=== PATIENT | male | born 1980 | race African-American/Black ===

== ENCOUNTER 2017-08-30 16:28 | Emergency (ER) | payer MEDICAID ==
[~2017-08-30] VITALS: Ht 185.4 cm; Wt 124.7 kg
[2017-08-30] MEDS ORDERED: TETANUS-DIPTH-ACEL PERTUSSIS 0.5ML SYRG IM ONE (22:00)
[2017-08-30] MEDS ORDERED: LIDOCAINE 1% HCL (LOCAL ANESTH.) INJ 20ML MDV IJ ONE (22:00)
[2017-08-30 22:02] VITALS: BP 182/115
[2017-08-30] MEDS ORDERED: cloNIDine HCL 0.1 MG TAB PO ONE (22:15)
== END 2017-08-30 22:33 | disposition home or self-care (01) ==
LOC: ER 16:37
DX: S61.411A Laceration without foreign body of right hand, initial encounter (principal); I10 Essential (primary) hypertension; X58.XXXA Exposure to other specified factors, initial encounter; Y93.89 Activity, other specified; Y99.8 Other external cause status; Y92.89 Other specified places as the place of occurrence of the external cause
CPT/HCPCS: 12002; 90471; 90715; 99283; J2001

== ENCOUNTER 2020-05-15 19:03 | Inpatient (IN) | payer MEDICAID, OTHER ==
[~2020-05-15] VITALS: Ht 182.9 cm; Wt 138.1 kg
[2020-05-15] MEDS ORDERED: AZITHROMYCIN 500MG/ 250ML 250 ML IV ONE (20:30)
[2020-05-15] MEDS ORDERED: methylPREDNISolone SOD SUCC 125 MG/2 ML VL IV ONE (20:30)
[2020-05-15] MEDS ORDERED: ACETAMINOPHEN 325 MG TAB PO ONE (20:30)
[2020-05-15 21:12] LABS: Basophils # (auto) 0.1 10 ^3/uL (0-0.2); Basophils % (auto) 1.3 % (0.0-2.0); Eosinophils # (auto) 0 10 ^3/uL (0-0.8); Eosinophils % (auto) 0.6 % (0.0-7.0); Hematocrit 44.2 % (41.0-53.0); Hemoglobin 14.4 g/dL (13.5-17.5); Lymphocytes # (auto) 0.7 10 ^3/uL (0.4-5.4); Lymphocytes % (auto) 11.5 % (10.0-50.0); Mean Corpuscular Hemoglobin 27.6 pg (28.0-32.0); Mean Corpuscular Hgb Conc. 32.6 g/dL (32.0-36.0); Mean Corpuscular Volume 84.4 fL (80.0-100.0); Monocytes % (auto) 15.9 % (0.0-12.0); Neutrophils # (auto) 4.3 10 ^3/uL (1.6-8.6); Neutrophils % (auto) 70.7 % (37.0-80.0); Nucleated Red Blood Cells % 0.2 %; Platelet Count (auto) 245 10^3/uL (140-450); Red Blood Cells 5.23 10^6/uL (4.5-5.90); Red Cell Distribution Width 15.1 % (11.8-14.3)
[2020-05-15 21:32] LABS: Albumin 3.6 g/dL (3.4-5.0); BUN/Creatinine Ratio 13.9; Calcium 8.5 mg/dL (8.5-10.1); Magnesium 2.2 mg/dL (1.6-2.6); Potassium 3.5 mmol/L (3.5-5.1)
[2020-05-15 21:37] LABS: Bilirubin, Total 0.3 mg/dL (0.2-1.0); Total Protein 7.3 g/dL (6.4-8.2)
[2020-05-15] MEDS ORDERED: IBUPROFEN 400 MG TAB PO ONE (22:45)
[2020-05-15 23:40] LABS: Alcohol, Urine < 3.0 mg/dL (0-10); Amphetamine Screen, Urine NEGATIVE (NEGATIVE); Barbiturate Scree,Urine NEGATIVE (NEGATIVE); Benzodiazephine Screen, Urine NEGATIVE (NEGATIVE); Cannabinoid Screen, Urine NEGATIVE (NEGATIVE); Cocaine Screen, Urine NEGATIVE (NEGATIVE); Opiate Scree,Urine NEGATIVE (NEGATIVE); Phencyclidine Screen, Urine NEGATIVE (NEGATIVE)
[2020-05-16] MEDS ORDERED: METF-370 PO (00:04)
[2020-05-16] MEDS ORDERED: ATOR40TA52 PO (00:04)
[2020-05-16] MEDS ORDERED: ACETAMINOPHEN 500 MG TAB PO PRN (00:15)
[2020-05-16] MEDS ORDERED: NITROGLYCERIN 0.4 MG SL TAB SL PRN (00:15)
[2020-05-16] MEDS ORDERED: DOCUSATE SOD 100 MG CAP PO PRN (00:15)
[2020-05-16] MEDS ORDERED: MORPHINE SULF INJ 2 MG/ML SYRINGE 1ML IV PRN (00:15)
[2020-05-16 02:10] LABS: Cholesterol 201 mg/dL (< 200)
[2020-05-16 02:13] LABS: HDL Cholesterol 33 mg/dL (40-59); LDL Cholesterol 109 mg/dL (< 100); Lactate Dehydrogenase 246 U/L (87-241); Triglycerides 388 mg/dL (< 150)
--- NOTE | 2020-05-16 06:05 | NUR ---
Telemetry admit from ER RONALDO FABIAN admitted to Telemetry unit after SBAR received. Patient oriented to MYNOR RIGGS RN primary RN, MST unit, room 245, bed B, and unit policies regarding patient care and visiting hours. Patient now on continuous telemetry monitoring, tele box 3 and telemetry reading on arrival to unit is sinus rhythm in the 70s. Patient placed on bedside oxygen, weighed by bed scale and encouraged to call if they need something. All questions and concerns addressed, patient verbalized understanding. Note: Patient able to ambulate independently, bed in lowest locked position, side rails up x2, and call light within reach. Will monitor Q1HR PRN.
[2020-05-16] MEDS ORDERED: ASPI81CH59 PO (06:18)
[2020-05-16] MEDS ORDERED: LISI-648 PO (06:18)
[2020-05-16] MEDS: BUDESONIDE (INHALATION) 180 MCG IH IN SCH ×3 (06:51→22:03)
[2020-05-16] MEDS: ALBUTEROL SULF HFA 90MCG INH 200DOSE IN SCH ×4 (06:51→22:03)
--- NOTE | 2020-05-16 06:51 | NUR ---
RT NOTE: MEDICATION UNAVAILABLE AT THIS TIME, PT IS IN NO DISTRESS. HR 65, SPO2 94% ON RA, RR 16. WILL CONTINUE TO MONITOR PT.
[2020-05-16] MEDS: HYDROmorphone HCL 2 MG/ML VL IV PRN ×3 (08:54→16:10)
[2020-05-16 09:00] VITALS: BP 156/86
[2020-05-16] MEDS: ASPirin 81 mg TAB PO SCH (10:12)
[2020-05-16] MEDS: ZINC SULFATE 220mg CAP or TAB PO SCH (10:13)
[2020-05-16] MEDS: ASCORBIC ACID 1,000 MG TAB PO SCH (10:13)
[2020-05-16] MEDS: CHOLECALCIFEROL (VITD3) 2,000 UNIT CAP PO SCH (10:14)
[2020-05-16] MEDS: ENOXAPARIN SOD 40 MG/0.4 ML SYRINGE SC SCH (10:14)
[2020-05-16 11:35] LABS: Basophils # (auto) 0.1 10 ^3/uL (0-0.2); Basophils % (auto) 1.2 % (0.0-2.0); Eosinophils # (auto) 0 10 ^3/uL (0-0.8); Hematocrit 45.5 % (41.0-53.0); Hemoglobin 14.6 g/dL (13.5-17.5); Mean Corpuscular Hemoglobin 27.3 pg (28.0-32.0); Mean Corpuscular Hgb Conc. 32.2 g/dL (32.0-36.0); Mean Corpuscular Volume 84.8 fL (80.0-100.0); Monocytes # (auto) 0.2 10 ^3/uL (0-1.3); Monocytes % (auto) 3.9 % (0.0-12.0); Neutrophils # (auto) 4.6 10 ^3/uL (1.6-8.6); Neutrophils % (auto) 77.9 % (37.0-80.0); Nucleated Red Blood Cells % 0.2 %; Platelet Count (auto) 241 10^3/uL (140-450); Red Blood Cells 5.36 10^6/uL (4.5-5.90); Red Cell Distribution Width 15.4 % (11.8-14.3); White Blood Cell 5.9 10^3/uL (4.4-10.8)
[2020-05-16 11:53] LABS: Potassium 4.1 mmol/L (3.5-5.1)
[2020-05-16 11:56] LABS: BUN/Creatinine Ratio 15.2
[2020-05-16 13:00] VITALS: BP 149/87
[2020-05-16] MEDS: DexAMETHasone SOD PHOS 10MG/1ML VIAL INJ IV SCH (16:27)
[2020-05-16] MEDS: DOXYCYCLINE 100MG/250ML 250 ML IV SCH ×2 (16:28→23:17)
[2020-05-16] MEDS ORDERED: LISINOPRIL 10 MG TAB PO ONE (16:45)
[2020-05-16 17:00] VITALS: BP 172/97
--- NOTE | 2020-05-16 19:30 | NUR ---
Opening Shift Note Assumed care of patient, awake and alert x4. Patient has no IV access at this time. Patient refusing IV insertion at this time, patient educated on the importance of IV access, patient continues to refuse IV insertion at this time, will attempt at a later time. Patient denies pain or shortness of breath at this time. No sign/symptoms of distress noted or verbalized at this time. Instructed on plan of care and encouraged patient to call for assistance as needed, patient verbalized understanding. Bed is locked in lowest position, side rails x 2 are up, and call light is within reach.
[2020-05-16 22:00] VITALS: BP 163/98
[2020-05-16] MEDS ORDERED: ATORVASTATIN 20 MG TAB PO SCH ×2 (22:00)
--- NOTE | 2020-05-16 22:30 | NUR ---
IV Insertion IV access obtained, via clean sterile technique by inserting 22 gauge catheter at left hand after 1 attempt. IV secured properly. No trauma to site. Patient tolerated well.
[2020-05-17] MEDS ORDERED: ACETAMINOPHEN 325 MG TAB PO PRN (00:15)
[2020-05-17] MEDS: hydrALAZINE HCL 25 MG TAB PO SCH ×2 (00:33→06:10)
[2020-05-17 02:00] VITALS: BP 159/88
[2020-05-17 04:55] VITALS: BP 158/95
[2020-05-17] MEDS: ALBUTEROL SULF HFA 90MCG INH 200DOSE IN SCH (06:45)
[2020-05-17] MEDS: BUDESONIDE (INHALATION) 180 MCG IH IN SCH (06:45)
[2020-05-17 08:00] VITALS: BP 132/90
[2020-05-17] MEDS ORDERED: metFORMIN HYDROCHLORIDE 500 MG TAB PO SCH (08:00)
[2020-05-17 08:55] LABS: Basophils # (auto) 0.1 10 ^3/uL (0-0.2); Basophils % (auto) 0.6 % (0.0-2.0); Eosinophils # (auto) 0 10 ^3/uL (0-0.8); Eosinophils % (auto) 0.3 % (0.0-7.0); Hematocrit 42.8 % (41.0-53.0); Hemoglobin 14.2 g/dL (13.5-17.5); Lymphocytes # (auto) 2.1 10 ^3/uL (0.4-5.4); Lymphocytes % (auto) 24.1 % (10.0-50.0); Mean Corpuscular Hemoglobin 28.1 pg (28.0-32.0); Mean Corpuscular Hgb Conc. 33.2 g/dL (32.0-36.0); Mean Corpuscular Volume 84.8 fL (80.0-100.0); Monocytes # (auto) 1.2 10 ^3/uL (0-1.3); Monocytes % (auto) 14.6 % (0.0-12.0); Neutrophils # (auto) 5.2 10 ^3/uL (1.6-8.6); Neutrophils % (auto) 60.4 % (37.0-80.0); Platelet Count (auto) 224 10^3/uL (140-450); Red Blood Cells 5.04 10^6/uL (4.5-5.90); White Blood Cell 8.5 10^3/uL (4.4-10.8)
[2020-05-17 09:13] LABS: Potassium 3.9 mmol/L (3.5-5.1)
[2020-05-17 09:23] LABS: Albumin 3.3 g/dL (3.4-5.0); BUN/Creatinine Ratio 16.3; Bilirubin, Total 0.2 mg/dL (0.2-1.0); Total Protein 6.7 g/dL (6.4-8.2)
[2020-05-17] MEDS: ASPirin 81 mg TAB PO SCH (09:51)
[2020-05-17] MEDS: ASCORBIC ACID 1,000 MG TAB PO SCH (09:52)
[2020-05-17] MEDS: CHOLECALCIFEROL (VITD3) 2,000 UNIT CAP PO SCH (09:52)
[2020-05-17] MEDS: ZINC SULFATE 220mg CAP or TAB PO SCH (09:52)
[2020-05-17] MEDS: DexAMETHasone SOD PHOS 10MG/1ML VIAL INJ IV SCH (09:53)
[2020-05-17] MEDS: DOXYCYCLINE 100MG/250ML 250 ML IV SCH ×2 (09:54→10:00)
[2020-05-17] MEDS: ENOXAPARIN SOD 40 MG/0.4 ML SYRINGE SC SCH (09:54)
[2020-05-17] MEDS ORDERED: ASPirin 81 mg TAB PO SCH (10:00)
[2020-05-17] MEDS ORDERED: LISINOPRIL 10 MG TAB PO SCH (10:00)
[2020-05-17 12:00] VITALS: BP 159/89
[2020-05-17] MEDS ORDERED: DOXYCYCLINE 100 MG TAB/CAP PO ONE (12:00)
--- NOTE | 2020-05-17 13:55 | NUR ---
Discharge instructions given as ordered. Encourage to follow up with PMD as instructed. All questions and concerns addressed. Patient verbalized understanding. Medication reconciliation form completed and copy given to patient. IV removed with catheter intact, pressure dressing applied. Telemetry unit returned to ICU. Patient taken to vehicle via wheelchair with all personal belongings, accompanied by staff. Family member waiting in front lobby for transportation. No distress noted at time of departure.
== END 2020-05-17 13:45 | disposition home or self-care (01) | DRG 137 ==
LOC: ER 19:03 → EDBD 19:03 → TELE 19:04 → TELE-EAST 05-16 06:18
PROVIDERS: ADMIT Nurse Practitioner Family; ATTEND Internal Medicine Pulmonary Disease
DX: U07.1 COVID-19 (principal); J12.89 Other viral pneumonia; E66.01 Morbid (severe) obesity due to excess calories; Z68.41 Body mass index [BMI] 40.0-44.9, adult; I10 Essential (primary) hypertension; R73.03 Prediabetes; R07.89 Other chest pain; E78.5 Hyperlipidemia, unspecified; F12.90 Cannabis use, unspecified, uncomplicated; F32.9 Major depressive disorder, single episode, unspecified; I25.2 Old myocardial infarction; Z79.899 Other long term (current) drug therapy; Z80.9 Family history of malignant neoplasm, unspecified; Z83.3 Family history of diabetes mellitus; Z86.79 Personal history of other diseases of the circulatory system; Z87.891 Personal history of nicotine dependence; Z79.891 Long term (current) use of opiate analgesic; Z79.01 Long term (current) use of anticoagulants; Z79.84 Long term (current) use of oral hypoglycemic drugs
CPT/HCPCS: 36415; 71045; 80048; 80053; 80061; 80307; 82728; 83036; 83605; 83615; 83735; 83880; 84443; 84484; 85025; 85379; 86141; 87040; 87426; 94640; G0378; J1100; J3490

== ENCOUNTER 2023-05-03 16:04 | Inpatient (IN) | payer OTHER ==
[2023-05-03] VITALS (8 sets, daily range): BP systolic 153–179; BP diastolic 81–94; PULSE 63–77; RESP 18–21; TEMP 98.1; O2SAT 95–100
[~2023-05-03] VITALS: Ht 188 cm; Wt 136.0 kg
[~2023-05-03 16:04] MED LIST: ASPI81CH59 PO; ATOR40TA52 PO; LISI10TA34 PO; METF-370 PO
[2023-05-03 16:35] LABS: Basophils # (auto) 0.1 10 ^3/uL (0-0.2); Basophils % (auto) 1.1 % (0.0-2.0); Eosinophils # (auto) 0.1 10 ^3/uL (0-0.8); Eosinophils % (auto) 1.3 % (0.0-7.0); Hematocrit 42.1 % (41.0-53.0); Hemoglobin 13.8 g/dL (13.5-17.5); Lymphocytes # (auto) 1.8 10 ^3/uL (0.4-5.4); Lymphocytes % (auto) 27.4 % (10.0-50.0); Mean Corpuscular Hemoglobin 27.5 pg (28.0-32.0); Mean Corpuscular Hgb Conc. 32.9 g/dL (32.0-36.0); Mean Corpuscular Volume 83.8 fL (80.0-100.0); Monocytes # (auto) 0.6 10 ^3/uL (0-1.3); Monocytes % (auto) 9.3 % (0.0-12.0); Neutrophils % (auto) 60.9 % (37.0-80.0); Red Blood Cells 5.02 10^6/uL (4.5-5.90); Red Cell Distribution Width 15.5 % (11.8-14.3); White Blood Cell 6.6 10^3/uL (4.4-10.8)
[2023-05-03 16:51] LABS: INR 1.02 (0.9-1.15); Prothrombin Time 10.7 sec (9.3-11.8)
[2023-05-03 16:56] LABS: Alanine Aminotransferase 27 U/L (7-40); Albumin 4.2 g/dL (3.2-4.8); Alkaline Phosphatase 115 U/L (46-116); Anion Gap 6 (5-15); Aspartate Aminotransferase 9 U/L (13-40); BUN/Creatinine Ratio 9.4 (10.0-20.0); Blood Urea Nitrogen 8 mg/dL (9-23); Calcium 8.9 mg/dL (8.7-10.4); Carbon Dioxide 26 mmol/L (20-30); Chloride 108 mmol/L (98-107); Glucose 137 mg/dL (74-106); Lipase 61 U/L (12-53); Potassium 3.7 mmol/L (3.5-5.1); Sodium 140 mmol/L (136-145)
[2023-05-03 16:57] LABS: Bilirubin, Total 0.6 mg/dL (0.2-1.0); Total Protein 6.7 g/dL (5.7-8.2)
[2023-05-03] MEDS ORDERED: NITROGLYCERIN 2% OINT 1GM PKG TD ONE (17:45)
[2023-05-03] MEDS ORDERED: HEPARIN DRIP/D5W 100UNITS/ML 250 ML IV SCH (17:45)
[2023-05-03] MEDS ORDERED: HEPARIN SODIUM (PORCINE) 5000 UNITS/ML 1ML VIAL IV ONE (17:45)
[2023-05-03] MEDS ORDERED: MORPHINE SULFATE INJ 2 MG/ml SYRG IV PRN ×2 (19:30)
[2023-05-03] MEDS ORDERED: HYDROcodone-ACET 5/325MG TAB PO PRN (19:30)
[2023-05-03] MEDS ORDERED: ACETAMINOPHEN 325 MG TAB PO PRN (19:30)
[2023-05-03] MEDS ORDERED: ONDANSETRON HCL 4 MG/2 ML VIAL IV PRN (19:30)
[2023-05-03] MEDS ORDERED: NITROGLYCERIN 0.4 MG SL TAB SL PRN (19:30)
[2023-05-03] MEDS ORDERED: DEXTROSE (50%) 50ML SYRG IV PRN (19:30)
[2023-05-03] MEDS ORDERED: DOCUSATE SOD 100 MG CAP PO PRN (19:30)
[2023-05-03] MEDS ORDERED: TICA90TA PO (19:39)
[2023-05-03] MEDS ORDERED: AMLO1TAB23 PO (19:39)
[2023-05-03] MEDS: hydrALAZINE HCL 20 MG/ML VL IV PRN (19:52)
[2023-05-03] MEDS ORDERED: ALBUTEROL SULF 2.5 MG/0.5ML(0.5%) NEB SOLN NEB PRN (20:00)
[2023-05-03] MEDS ORDERED: IPRATROPIUM BROM 0.5 MG/2.5ML INH SOL NEB PRN (20:00)
[2023-05-03] MEDS ORDERED: cloNIDine HCL 0.1 MG TAB PO ONE (21:30)
[2023-05-03] MEDS ORDERED: ATORVASTATIN 20 MG TAB PO SCH (22:00)
[2023-05-03 22:26] LABS: COVID19 ANTIGEN SOFIA FIA NEGATIVE (NEGATIVE)
[2023-05-03] MEDS: InsuLIN REG 1unit/0.01ml Soln (100units/ml) SC SCH (22:33)
[2023-05-03] MEDS: ACCU-CHEK COMFORT CURVE STRIP VI SCH (22:34)
[2023-05-04] VITALS: BP 188/72; PULSE 54; PULSE 55; RESP 13; TEMP 98.1; O2SAT 97
[2023-05-04] MEDS ORDERED: HEPARIN SODIUM (PORCINE) 5000 UNITS/ML 1ML VIAL IV NR (00:15)
[2023-05-04 04:00] VITALS: BP 165/93; PULSE 52; PULSE 62; RESP 19; TEMP 97.8; O2SAT 96
[2023-05-04 05:06] LABS: Basophils # (auto) 0.2 10 ^3/uL (0-0.2); Basophils % (auto) 2.1 % (0.0-2.0); Eosinophils # (auto) 0.2 10 ^3/uL (0-0.8); Eosinophils % (auto) 2.1 % (0.0-7.0); Hematocrit 42.5 % (41.0-53.0); Hemoglobin 13.9 g/dL (13.5-17.5); Lymphocytes # (auto) 2.7 10 ^3/uL (0.4-5.4); Lymphocytes % (auto) 35.9 % (10.0-50.0); Mean Corpuscular Hemoglobin 27.5 pg (28.0-32.0); Mean Corpuscular Hgb Conc. 32.6 g/dL (32.0-36.0); Mean Corpuscular Volume 84.3 fL (80.0-100.0); Monocytes % (auto) 12.6 % (0.0-12.0); Neutrophils # (auto) 3.6 10 ^3/uL (1.6-8.6); Neutrophils % (auto) 47.3 % (37.0-80.0); Nucleated Red Blood Cells % 0.2 %; Red Blood Cells 5.04 10^6/uL (4.5-5.90); Red Cell Distribution Width 16.1 % (11.8-14.3); White Blood Cell 7.6 10^3/uL (4.4-10.8)
[2023-05-04 05:20] LABS: INR 1.04 (0.9-1.15); Partial Thromboplastin Time 42.6 SEC (24.5-34.5); Prothrombin Time 10.9 sec (9.3-11.8)
[2023-05-04 05:23] LABS: Alanine Aminotransferase 37 U/L (7-40); Albumin 4.1 g/dL (3.2-4.8); Alkaline Phosphatase 102 U/L (46-116); Anion Gap 6 (5-15); Aspartate Aminotransferase 9 U/L (13-40); Bilirubin, Total 0.8 mg/dL (0.2-1.0); Blood Urea Nitrogen 8 mg/dL (9-23); Calcium 8.5 mg/dL (8.5-10.1); Carbon Dioxide 26 mmol/L (20-30); Chloride 110 mmol/L (98-107); Glucose 109 mg/dL (74-106); Potassium 3.6 mmol/L (3.5-5.1); Sodium 142 mmol/L (136-145)
[2023-05-04 05:24] LABS: Total Protein 6.5 g/dL (5.7-8.2)
[2023-05-04] MEDS: InsuLIN REG 1unit/0.01ml Soln (100units/ml) SC SCH ×2 (06:19→11:30)
[2023-05-04] MEDS: ACCU-CHEK COMFORT CURVE STRIP VI SCH ×2 (06:19→11:30)
[2023-05-04 07:24] LABS: INR 1.03 (0.9-1.15); Partial Thromboplastin Time 38.4 SEC (24.5-34.5); Prothrombin Time 10.8 sec (9.3-11.8)
[2023-05-04 08:00] VITALS: BP 164/86; PULSE 49; PULSE 61; RESP 16; RESP 18; TEMP 98.3; O2SAT 96; O2SAT 97
[2023-05-04] MEDS ORDERED: HEPARIN DRIP/D5W 100UNITS/ML 250 ML IV SCH ×2 (08:45→16:15)
[2023-05-04] MEDS ORDERED: NICOTINE 14 MG/24HR TOPICAL PATCH TD SCH (10:00)
[2023-05-04] MEDS ORDERED: TICAGRELOR 90 MG TAB PO SCH (10:00)
[2023-05-04] MEDS ORDERED: PANTOPRAZOLE 40 MG TAB PO SCH (10:00)
[2023-05-04] MEDS ORDERED: LISINOPRIL 10 MG TAB PO SCH (10:00)
[2023-05-04] MEDS: hydrALAZINE HCL 20 MG/ML VL IV PRN (10:00)
[2023-05-04] MEDS ORDERED: ASPirin 81 mg TAB PO SCH (10:00)
[2023-05-04] MEDS ORDERED: amLODIPine BESYLATE 5 MG TAB PO SCH (10:00)
[2023-05-04 10:12] VITALS: O2SAT 94
[2023-05-04 12:00] VITALS: BP 169/90; PULSE 61; PULSE 64; RESP 15; TEMP 98.2; O2SAT 95
[2023-05-04 15:46] LABS: INR 1.03 (0.9-1.15); Partial Thromboplastin Time 41.3 SEC (24.5-34.5); Prothrombin Time 10.8 sec (9.3-11.8)
== END 2023-05-04 16:54 | disposition left against medical advice (07) | DRG 190 ==
LOC: EDBD 16:04 → ER 16:04 → TELE 19:39 → DOU IN ICU 21:50
PROVIDERS: ADMIT Nurse Practitioner Family; ATTEND Nurse Practitioner Acute Care
DX: I21.4 Non-ST elevation (NSTEMI) myocardial infarction (principal); E11.9 Type 2 diabetes mellitus without complications; E66.01 Morbid (severe) obesity due to excess calories; E78.5 Hyperlipidemia, unspecified; F17.210 Nicotine dependence, cigarettes, uncomplicated; I10 Essential (primary) hypertension; Z53.29 Procedure and treatment not carried out because of patient's decision for other reasons; I25.10 Atherosclerotic heart disease of native coronary artery without angina pectoris; Z20.822 Contact with and (suspected) exposure to COVID-19; Z79.82 Long term (current) use of aspirin; Z79.84 Long term (current) use of oral hypoglycemic drugs; Z95.5 Presence of coronary angioplasty implant and graft; Z83.3 Family history of diabetes mellitus; Z80.9 Family history of malignant neoplasm, unspecified; Z68.38 Body mass index [BMI] 38.0-38.9, adult
CPT/HCPCS: 36415; 71045; 80053; 82962; 83690; 83735; 83880; 84484; 85025; 85379; 85610; 85730; 87081; 87426; 93005; 93306; 94640; 99291; G0378

== ENCOUNTER 2024-08-28 10:51 | Emergency (ER) | payer MEDICAID, OTHER ==
[~2024-08-28] VITALS: Ht 185.4 cm; Wt 132.0 kg
[~2024-08-28 10:51] MED LIST changes: +AMLO1TAB23 PO; +TICA90TA PO
[2024-08-28 11:09] VITALS: BP 180/103; PULSE 81; RESP 17; O2SAT 99
[2024-08-28 12:23] LABS: Urine Bacteria None Seen /hpf (None Seen)
--- NOTE | 2024-08-28 12:29 | ED.PDOC ---
GI ASSESSMENT HPI Comments Manny Sloan is a 43-year-old male patient who presents to the ED with chief complaint of back pain which radiated towards abdomen in umbilicus area which started two weeks ago, associated with nausea, chills, fever and diarrhea (initially patient could not control during nighttime bowel movements, currently patient is having 12 bowel movements and last bowel movements were black/tarry) and stabbing anal pain while wiping. Per patient symptoms partially improved with Tylenol, but persisted until yesterday when he also saw hematuria and melena. When discussing different food intake, patient does recall consuming home made chicken noodle soup for his that had flu-like symptoms, and then started presenting symptoms (no other family members had symptoms from eating soup). 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 Denies chest pain, dyspnea, dysuria, vomiting, constipation and motor or sensory deficits. 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 Current smoker (approximately 11 pack-year history of smoking). Denies alcohol and other drug abuse Allergies: Denies Home medication: Metformin, aspirin, Brilinta, clonidine, Ozempic which he has not been able be compliant with due to abdominal pain. Chief Complaint: Abdominal Pain Time Seen by MD: 11:18 Primary Care Provider: sanchez Allergies: Coded Allergies: No Known Drug Allergy (Verified Allergy, Unknown, 08/30/17) Home Meds Reported Medications Ticagrelor Base (BRILINTA) 90 Mg Tab, 1 TAB PO BID 05/03/23 Amlodipine Besylate (Amlodipine Besylate) 10 Mg Tab, 1 TAB PO DAILY 05/03/23 Lisinopril (Lisinopril) 10 Mg Tab, 10 MG PO DAILY for 30 Days, MG 05/16/20 Aspirin (Aspirin Low Dose) 81 Mg Chw, 1 TAB PO DAILY, #30 TAB 3 Refills 05/16/20 Metformin Hydrochloride (Metformin Hcl) 500 Mg Tab, 1 TAB PO BID 05/16/20 Atorvastatin Calcium (ATORVASTATIN CALCIUM) 40 Mg Tab, 1 TAB PO 05/16/20 Mode of Arrival: Ambulatory Past Medical History PAST MEDICAL HISTORY: DM, High Lipids, HTN, OK Surgical History: PTCA Family History Family History: Family hx of DM, Family hx of Cancer Social History Smoker: Cigarettes Alcohol: Occasionally Drugs: Marijuana Lives In: Home Physical Exam General Appearance: Mild Distress, Normal HEENT: Normal ENT Inspection, Pharynx Normal, TMs Normal Neck: Full Range of Motion, Non-Tender, Normal, Normal Inspection Respiratory: Chest Non-Tender, Lungs Clear, No Accessory Muscle Use, No Res piratory Distress, Normal Breath Sounds Cardiovascular: No Edema, No JVD, No Murmur, No Gallop, Normal Peripheral Pulses, Regular Rate/Rhythm Breast Exam: Deferred Gastrointestinal: No Organomegaly, Non Tender, No Pulsatile Mass, Normal Bowel Sounds, Soft Genitalia: Other (Costovertebral tenderness in left flank) Pelvic: Deferred Rectal: Deferred Extremities: No calf tenderness, Normal capillary refill, Normal inspection, Normal range of motion, Non-tender, No pedal edema 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 Was a procedure done?: No GI differential Dx Differential Diagnosis: AAA, Appendicitis, Bowel Obstruction, Constipation, Diverticular disease, Gastritis/PUD, Gastroenteritis, Ischemic Bowel, Pancreatitis, UTI, Urolithiasis, Electrolyte Imbalance, Food Poisoning X-Ray, Labs, Meds, VS Vital Signs Date Time Temp Pulse Resp B/P (MAP) Pulse Ox O2 Delivery O2 Flow Rate FiO2 08/28/24 11:09 98.0 81 17 180/103 (128) 99 Lab Test 08/28/24 13:07 08/28/24 11:08 Range/Units White Blood Count 9.5 4.4-10.8 10^3/uL Red Blood Count 5.15 4.5-5.90 10^6/uL Hemoglobin 14.2 13.5-17.5 g/dL Hematocrit 42.7 41.0-53.0 % Mean Corpuscular Volume 82.8 80.0-100.0 fL Mean Corpuscular Hemoglobin 27.6 L 28.0-32.0 pg Mean Corpuscular Hemoglobin Concent 33.3 32.0-36.0 g/dL Red Cell Distribution Width 16.5 H 11.8-14.3 % Platelet Count 324 140-450 10^3/uL Mean Platelet Volume 8.1 6.9-10.8 fL Neutrophils (%) (Auto) 65.5 37.0-80.0 % Lymphocytes (%) (Auto) 22.8 10.0-50.0 % Monocytes (%) (Auto) 9.2 0.0-12.0 % Eosinophils (%) (Auto) 1.3 0.0-7.0 % Basophils (%) (Auto) 1.2 0.0-2.0 % Neutrophils # (Auto) 6.2 1.6-8.6 10 ^3/uL Lymphocytes # (Auto) 2.2 0.4-5.4 10 ^3/uL Monocytes # (Auto) 0.9 0-1.3 10 ^3/uL Eosinophils # (Auto) 0.1 0-0.8 10 ^3/uL Basophils # (Auto) 0.1 0-0.2 10 ^3/uL Nucleated Red Blood Cells 0.1 % Prothrombin Time 10.3 9.3-11.8 sec Prothrombin Time INR 0.97 0.9-1.15 Activated Partial Thromboplast Time 26.9 24.5-34.5 SEC Sodium Level 143 136-145 mmol/L Potassium Level 3.6 3.5-5.1 mmol/L Chloride Level 109 H 98-107 mmol/L Carbon Dioxide Level 26 20-31 mmol/L Anion Gap 8 5-15 Blood Urea Nitrogen 14 9-23 mg/dL Creatinine 1.54 H 0.700-1.30 mg/dL Glomerular Filtration Rate Calc 57 >90 mL/min BUN/Creatinine Ratio 9.1 L 10.0-20.0 Serum Glucose 116 H 74-106 mg/dL Calcium Level 9.9 8.7-10.4 mg/dL Phosphorus Level 3.1 2.4-5.1 mg/dL Magnesium Level 1.9 1.6-2.6 mg/dL Iron Level 46 L 65-175 ug/dL Total Iron Binding Capacity 313 250-425 ug/dL Percent Iron Saturation 14.7 L 20-55 % Total Bilirubin 0.8 0.2-1.0 mg/dL Aspartate Amino Transferase (AST) 9 L 13-40 U/L Alanine Aminotransferase (ALT) 43 H 7-40 U/L Alkaline Phosphatase 97 46-116 U/L Total Protein 7.1 5.7-8.2 g/dL Albumin 4.4 3.2-4.8 g/dL Lipase 39 12-53 U/L Thyroid Stimulating Hormone (TSH) Pending Urine Color Colorless Yellow Urine Clarity Turbid H Clear Urine pH 5.5 5.0-9.0 Urine Specific [place] 1.012 1.001-1.035 Urine Protein Trace H Negative Urine Ketones Negative Negative Urine Blood 3+ H Negative /uL Urine Nitrite Negative Negative Urine Bilirubin Negative Negative Urine Urobilinogen Normal Negative mg/dL Urine Leukocyte Esterase 1+ Negative /uL Urine RBC 1594 0 - 3 /hpf Urine Microscopic WBC 9 H 0-3 /HPF Urine Squamous Epithelial Cells Few <5 /hpf Urine Bacteria None seen None Seen /hpf Urine Glucose Normal Normal mg/dL Urine Opiates Screen Neg NEGATIVE Urine Fentanyl Screen Neg NEGATIVE Urine Barbiturates Screen Neg NEGATIVE Urine Phencyclidine Screen Neg NEGATIVE Urine Amphetamines Screen Neg NEGATIVE Urine Benzodiazepines Screen Neg NEGATIVE Urine Cocaine Screen Neg NEGATIVE Urine Cannabinoids Screen Neg NEGATIVE X-Ray, Labs, Meds, VS Comment Completed laboratory workup, urine analysis, abdomen and pelvis CT. ORDERING PHYSICIAN: NAHUN MARTINEZ RESIDENT PROCEDURE(s): ABPL - CT AB PEL WO CON-NO ORAL OR IV REASON: Abdominal pain, rule our nephrolithiasis ORDER NUMBER(s): [id number], ACCESSION NUMBER(s): [id number] CT ABDOMEN AND PELVIS WITHOUT CONTRAST CLINICAL HISTORY: Abdominal pain, rule our nephrolithiasis TECHNIQUE: Multiple contiguous axial images of the abdomen and pelvis without intravenous contrast. The images were reformatted degenerate coronal and sagittal reconstructions. All CT scans at this medical facility are performed using dose modulation techniques as appropriate to a performed exam including the following:Automated exposure control was utilized; adjustment of the MA and/or KV according to patient size; and use of iterative reconstruction technique. Radiation Dose Information: CT Dose: CTDI volume is 25 mGy. Dose-length product is 1594 mGy*cm Comparison: None FINDINGS: Evaluation of the abdomen and pelvis is limited without intravenous contrast. There is no evidence of nephrolithiasis or hydronephrosis. There is no evidence of a ureteral calculus or hydroureter. The liver, gallbladder, pancreas, adrenal glands, and spleen appear within normal limits. There is no gross evidence of abdominal lymphadenopathy. There is no free fluid or free air. The stomach grossly appears unremarkable. The small and large bowel loops demonstrate normal caliber and appear within normal limits.. A normal-appearing appendix is seen in the right lower quadrant abdomen. The abdominal aorta and IVC appear within normal limits. The bladder appears unremarkable for the degree of distention. Pelvic organ appears within normal limits. There is no gross evidence of a pelvic mass. There is no free fluid collection. There are small clustered calcified granulomas in the right lower lobe. The left lung base is clear. There is no acute osseous abnormality. IMPRESSION: 1. There is no acute process in the abdomen and pelvis. HS:Y ATED BY: MAURICIO CONLEY MD DICTATED DATE/TIME: 08/28/24 1302 Time of 1ST Reevaluation: 14:43 Reevaluation 1ST: Improved Patient Education/Counseling: Diagnosis, Treatment, Prognosis, Need For Follow Up Family Education/Counseling: Diagnosis, Treatment, Prognosis, Need For Follow Up Departure 1 Departure Time of Disposition: 14:44 Impression: Primary Impression: KHUSHBU (acute kidney injury) Additional Impressions: Gastroenteritis Hematuria Disposition: 01 HOME / SELF CARE / HOMELESS Condition: Stable Additional Instructions: Reviewed complementary workup. Laboratory findings show mild KHUSHBU, abdomen and pelvis CT show no gross abdominal pelvis acute findings. Urine analysis shows hematuria with no signs of UTI. Suspect microscopic nephrolithiasis. Indication at this time is p.o. fluids and tamsulosin. If patient does not tolerate p.o. fluids, recommend to revisit ER for IV fluids and eventual workup for stool studies to evaluate cause of diarrhea (C diff, ova and parasites). Patient hemodynamically stable, asymptomatic, in condition to be discharged home. Was granted under optimal medical therapy (p.o. fluids and tamsulosin p.o.), gave her advice on healthy lifestyle habits, and follow-up with PCP and eventual repeat urine analysis and BMP. Critical Care Note Critical Care Time?: No Stability Stability form required: No Heart Score Heart Score: Heart Score Response (Comments) Value History N/A 0 EKG N/A 0 Age N/A 0 Risk Factors N/A 0 Troponin N/A 0 Total 0 NAHUN MARTINEZ RESIDENT Aug 28, 2024 12:29
--- NOTE | 2024-08-28 13:02 | DVH ---
EXAM: XY CHEST XRAY 1 VIEW HISTORY: abdominal pain COMPARISON: XY CHEST XRAY 1 VIEW on DOS: 05/03/23, CHEST PORTABLE on DOS: 05/17/20, CHEST PORTABLE on DOS: 05/15/20 TECHNIQUE: Portable AP view of the chest was performed. FINDINGS: No pneumothorax, consolidative infiltrates, or pulmonary edema. There are calcified granulomas in the right mid lung laterally. The heart is borderline enlarged. IMPRESSION: No acute intrathoracic process.
--- NOTE | 2024-08-28 13:04 | DVH ---
CT ABDOMEN AND PELVIS WITHOUT CONTRAST CLINICAL HISTORY: Abdominal pain, rule our nephrolithiasis TECHNIQUE: Multiple contiguous axial images of the abdomen and pelvis without intravenous contrast. The images were reformatted degenerate coronal and sagittal reconstructions. All CT scans at this medical facility are performed using dose modulation techniques as appropriate t o a performed exam including the following:Automated exposure control was utilized; adjustment of the MA and/or KV according to patient size; and use of iterative reconstruction technique. Radiation Dose Information: CT Dose: CTDI volume is 25 mGy. Dose-length product is 1594 mGy*cm Comparison: None FINDINGS: Evaluation of the abdomen and pelvis is limited without intravenous contrast. There is no evidence of nephrolithiasis or hydronephrosis. There is no evidence of a ureteral calculu s or hydroureter. The liver, gallbladder, pancreas, adrenal glands, and spleen appear within normal limits. There is no gross evidence of abdominal lymphadenopathy. There is no free fluid or free air. The stomach grossly appears unremarkable. The small and large bowel loops demonstrate normal caliber and appear within normal limits.. A normal-appearing appendix is seen in the right lower quadrant a bdomen. The abdominal aorta and IVC appear within normal limits. The bladder appears unremarkable for the degree of distention. Pelvic organ appears within normal dominguez its. There is no gross evidence of a pelvic mass. There is no free fluid collection. There are small clustered calcified granulomas in the right lower lobe. The left lung base is clear. There is no acute osseous abnormality. IMPRESSION: 1. There is no acute process in the abdomen and pelvis. HS:Y
[2024-08-28 13:08] LABS: Urine Blood 3+ /uL (Negative); Urine Clarity Turbid (Clear); Urine Color Colorless (Yellow); Urine Protein, UAD TRACE (Negative); Urine Specific Gravity 1.012 (1.001-1.035); Urine Squamous Epithelial Cell FEW /hpf (<5); Urine Urobilinogen Normal (Negative); Urine WBC 9 /HPF (0-3); Urine pH 5.5 (5.0-9.0)
[2024-08-28 13:26] LABS: Amphetamine Screen, Urine Neg (NEGATIVE); Barbiturate Scree,Urine Neg (NEGATIVE); Benzodiazephine Screen, Urine Neg (NEGATIVE); Cannabinoid Screen, Urine Neg (NEGATIVE); Cocaine Screen, Urine Neg (NEGATIVE); Opiate Scree,Urine Neg (NEGATIVE); Phencyclidine Screen, Urine Neg (NEGATIVE)
[2024-08-28 13:33] LABS: Basophils # (auto) 0.1 10 ^3/uL (0-0.2); Basophils % (auto) 1.2 % (0.0-2.0); Eosinophils # (auto) 0.1 10 ^3/uL (0-0.8); Eosinophils % (auto) 1.3 % (0.0-7.0); Hematocrit 42.7 % (41.0-53.0); Hemoglobin 14.2 g/dL (13.5-17.5); Lymphocytes # (auto) 2.2 10 ^3/uL (0.4-5.4); Lymphocytes % (auto) 22.8 % (10.0-50.0); Mean Corpuscular Hemoglobin 27.6 pg (28.0-32.0); Mean Corpuscular Hgb Conc. 33.3 g/dL (32.0-36.0); Mean Corpuscular Volume 82.8 fL (80.0-100.0); Monocytes # (auto) 0.9 10 ^3/uL (0-1.3); Monocytes % (auto) 9.2 % (0.0-12.0); Neutrophils # (auto) 6.2 10 ^3/uL (1.6-8.6); Neutrophils % (auto) 65.5 % (37.0-80.0); Nucleated Red Blood Cells % 0.1 %; Platelet Count (auto) 324 10^3/uL (140-450); Red Blood Cells 5.15 10^6/uL (4.5-5.90); Red Cell Distribution Width 16.5 % (11.8-14.3); White Blood Cell 9.5 10^3/uL (4.4-10.8)
[2024-08-28 13:50] LABS: Albumin 4.4 g/dL (3.2-4.8); Alkaline Phosphatase 97 U/L (46-116); Anion Gap 8 (5-15); BUN/Creatinine Ratio 9.1 (10.0-20.0); Blood Urea Nitrogen 14 mg/dL (9-23); Calcium 9.9 mg/dL (8.7-10.4); Carbon Dioxide 26 mmol/L (20-31); Lipase 39 U/L (12-53); Magnesium 1.9 mg/dL (1.6-2.6); Phosphorus 3.1 mg/dL (2.4-5.1); Potassium 3.6 mmol/L (3.5-5.1); Sodium 143 mmol/L (136-145)
[2024-08-28 13:51] LABS: % Iron Saturation 14.7 % (20-55); Bilirubin, Total 0.8 mg/dL (0.2-1.0); Total Protein 7.1 g/dL (5.7-8.2)
[2024-08-28 13:52] LABS: INR 0.97 (0.9-1.15); Partial Thromboplastin Time 26.9 SEC (24.5-34.5); Prothrombin Time 10.3 sec (9.3-11.8)
[2024-08-28 14:22] LABS: Alanine Aminotransferase 43 U/L (7-40); Aspartate Aminotransferase 9 U/L (13-40); Chloride 109 mmol/L (98-107); Glucose 116 mg/dL (74-106)
[2024-08-28] MEDS ORDERED: TAMS0.4C39 PO (14:50)
== END 2024-08-28 14:50 | disposition home or self-care (01) ==
LOC: ER 10:57
DX: K52.9 Noninfective gastroenteritis and colitis, unspecified (principal); N17.9 Acute kidney failure, unspecified; I10 Essential (primary) hypertension; F17.210 Nicotine dependence, cigarettes, uncomplicated; E78.5 Hyperlipidemia, unspecified; E11.9 Type 2 diabetes mellitus without complications; F12.10 Cannabis abuse, uncomplicated; Z79.02 Long term (current) use of antithrombotics/antiplatelets; Z79.82 Long term (current) use of aspirin; Z79.84 Long term (current) use of oral hypoglycemic drugs; Z79.899 Other long term (current) drug therapy; Z95.5 Presence of coronary angioplasty implant and graft
CPT/HCPCS: 36415; 71045; 74176; 80053; 80307; 81001; 83540; 83550; 83690; 83735; 84100; 84443; 85025; 85610; 85730; 87086

== ENCOUNTER 2024-09-29 01:58 | Inpatient (IN) | payer MEDICAID ==
[~2024-09-29] VITALS: Ht 185.4 cm; Wt 127.0 kg
[~2024-09-29 01:58] MED LIST changes: +TAMS0.4C39 PO
--- NOTE | 2024-09-29 02:14 | ED.PDOC ---
History of Present Illness HPI Comments 43-year-old male came to ER due to chest pain. Patient does have a history of hypertension, diabetes, [place], status post cardiac stents. Patient has been having intermittent episodes of chest pains for the past week, radiating to his left arm. Noted also shortness of breath diaphoresis and generalized weakness. Blood pressure upon arrival was 180/110 mmHg. Patient has poor compliance to his blood pressure medications. Patient continues to smoke cigarettes. Patient has self-medicated with nitroglycerin, providing relief of the pain Chief Complaint: Chest pain Time Seen by MD: 02:18 Primary Care Provider: sanchez Reviewed Notes: Nurses Notes Allergies: Coded Allergies: No Known Drug Allergy (Verified Allergy, Unknown, 08/30/17) Home Meds Active Scripts Tamsulosin Hcl (Tamsulosin Hcl) 0.4 Mg Cap, 1 CAP PO DAILY for 10 Days, #30 CAP 5 Refills Prov:NAHUN MARTINEZ RESIDENT 08/28/24 Reported Medications Ticagrelor Base (BRILINTA) 90 Mg Tab, 1 TAB PO BID 05/03/23 Amlodipine Besylate (Amlodipine Besylate) 10 Mg Tab, 1 TAB PO DAILY 05/03/23 Lisinopril (Lisinopril) 10 Mg Tab, 10 MG PO DAILY for 30 Days, MG 05/16/20 Aspirin (Aspirin Low Dose) 81 Mg Chw, 1 TAB PO DAILY, #30 TAB 3 Refills 05/16/20 Metformin Hydrochloride (Metformin Hcl) 500 Mg Tab, 1 TAB PO BID 05/16/20 Atorvastatin Calcium (ATORVASTATIN CALCIUM) 40 Mg Tab, 1 TAB PO 05/16/20 Information Source: Patient Mode of Arrival: Ambulatory Severity: Moderate Timing: Hours Duration: Since onset Review of Systems REVIEW OF SYSTEMS: No fever, no chills, or fatigue HEENT: No sore throat, no earache, no congestion, no neck pain. Cardiac: (+) chest pain. No palpitations. Lungs: No shortness of breath, no cough. GI: No nausea, no vomiting, no diarrhea, no constipation, no abdominal pain : No dysuria, frequency, or urgency. No hematuria. Musculoskeletal: No joint pain , no joint swelling, no extremity edema. Skin: No rash, no itching. Neuro: No headache, no dizziness, no weakness Vital Signs Vital Signs Date Time Temp Pulse Resp B/P (MAP) Pulse Ox O2 Delivery O2 Flow Rate FiO2 09/29/24 04:17 61 19 189/110 09/29/24 02:59 98.5 96 98.5 09/29/24 02:51 Room Air* 0 21 Physical Exam General: Awake, alert and oriented. No acute distress. Skin: Skin in warm, dry and intact. Appropriate color for ethnicity. Nailbeds pink with no cyanosis. HEENT: The head is normocephalic and atraumatic. Conjunctivae are clear without exudates or hemorrhage. Sclera is non-icteric. EOM are intact. No signs of nystagmus. Eyelids are normal in appearance without swelling or lesions. Oral mucosa is pink and moist Neck: The neck is supple with normal range of motion. No JVD. Cardiac: Heart rate and rhythm are normal. No murmurs, gallops, or rubs are auscultated. Respiratory: No signs of respiratory distress. Lung sounds are clear in all lobes bilaterally without rales, ronchi, or wheezes. Abdominal: Abdomen is soft, non-tender without distention. Bowel sounds are present and normoactive in all four quadrants. Extremities: Upper and lower extremities are atraumatic in appearance without deformity or edema. Neurological: The patient is awake, alert and oriented to person, place, and time with normal speech. Speech is clear. There is no facial asymmetry. Psychiatric: Appropriate mood and affect. Good judgement and insight. No visual or auditory hallucinations. Past Medical History PAST MEDICAL HISTORY: DM, High Lipids, HTN, [place] Surgical History: PTCA Family History Family History: Family hx of DM, Family hx of Cancer Social History Smoker: Cigarettes Alcohol: Occasionally Drugs: Marijuana Lives In: Home Was a procedure done? Was a procedure done?: No EKG EKG : Pulse Rate (adult): 83 Differential Dx Considerations may include: Anemia, electrolyte imbalance, coronary artery disease, [place], hypertension X-Ray, Labs, Meds, VS Vital Signs Date Time Temp Pulse Resp B/P (MAP) Pulse Ox O2 Delivery O2 Flow Rate FiO2 09/29/24 04:17 61 19 189/110 09/29/24 03:57 189/110 09/29/24 03:43 78 24 186/110 09/29/24 03:40 186/110 09/29/24 02:59 98.5 81 18 186/109 (134) 96 98.5 09/29/24 02:58 179/107 09/29/24 02:57 179/107 09/29/24 02:51 71 22 94 Room Air* 0 21 09/29/24 02:41 84 16 97 Room Air 09/29/24 02:41 98.0 84 16 179/107 (131) 97 98.0 09/29/24 02:14 83 09/29/24 02:05 83 09/29/24 02:02 98.0 84 16 179/107 (131) 97 Lab Test 09/29/24 02:55 09/29/24 02:26 09/29/24 02:05 Range/Units Troponin I High Sensitivity 3365 *H 3284 *H </=54 ng/L Urine Color Light-yellow Yellow Urine Clarity Clear Clear Urine pH 6.0 5.0-9.0 Urine Specific [place] 1.018 1.001-1.035 Urine Protein Trace H Negative Urine Ketones Negative Negative Urine Blood 1+ H Negative /uL Urine Nitrite Negative Negative Urine Bilirubin Negative Negative Urine Urobilinogen Normal Negative mg/dL Urine Leukocyte Esterase Negative Negative /uL Urine RBC 2 0 - 3 /hpf Urine Microscopic WBC 1 0-3 /HPF Urine Squamous Epithelial Cells None seen <5 /hpf Urine Bacteria None seen None Seen /hpf Urine Glucose Normal Normal mg/dL White Blood Count 8.0 4.4-10.8 10^3/uL Red Blood Count 5.08 4.5-5.90 10^6/uL Hemoglobin 14.1 13.5-17.5 g/dL Hematocrit 42.3 41.0-53.0 % Mean Corpuscular Volume 83.2 80.0-100.0 fL Mean Corpuscular Hemoglobin 27.8 L 28.0-32.0 pg Mean Corpuscular Hemoglobin Concent 33.4 32.0-36.0 g/dL Red Cell Distribution Width 16.1 H 11.8-14.3 % Platelet Count 231 140-450 10^3/uL Mean Platelet Volume 8.7 6.9-10.8 fL Neutrophils (%) (Auto) 54.4 37.0-80.0 % Lymphocytes (%) (Auto) 27.8 10.0-50.0 % Monocytes (%) (Auto) 12.1 H 0.0-12.0 % Eosinophils (%) (Auto) 2.2 0.0-7.0 % Basophils (%) (Auto) 3.5 H 0.0-2.0 % Neutrophils # (Auto) 4.4 1.6-8.6 10 ^3/uL Lymphocytes # (Auto) 2.2 0.4-5.4 10 ^3/uL Monocytes # (Auto) 1.0 0-1.3 10 ^3/uL Eosinophils # (Auto) 0.2 0-0.8 10 ^3/uL Basophils # (Auto) 0.3 H 0-0.2 10 ^3/uL Nucleated Red Blood Cells 0.1 % Prothrombin Time 10.6 9.3-11.8 sec Prothrombin Time INR 1.00 0.9-1.15 Activated Partial Thromboplast Time 27.9 24.5-34.5 SEC Sodium Level 140 136-145 mmol/L Potassium Level 3.5 3.5-5.1 mmol/L Chloride Level 106 98-107 mmol/L Carbon Dioxide Level 26 20-31 mmol/L Anion Gap 8 5-15 Blood Urea Nitrogen 17 9-23 mg/dL Creatinine 1.09 0.700-1.30 mg/dL Glomerular Filtration Rate Calc 86 >90 mL/min BUN/Creatinine Ratio 15.6 10.0-20.0 Serum Glucose 122 H 74-106 mg/dL Calcium Level 9.9 8.7-10.4 mg/dL Total Bilirubin 0.6 0.2-1.0 mg/dL Aspartate Amino Transferase (AST) 22 13-40 U/L Alanine Aminotransferase (ALT) 44 H 7-40 U/L Alkaline Phosphatase 108 46-116 U/L B-Type Natriuretic Peptide 122.32 0-100 pg/mL Total Protein 7.1 5.7-8.2 g/dL Albumin 4.6 3.2-4.8 g/dL Lipase 119 H 12-53 U/L Current Medications Medications (Trade) Dose Ordered Sig/Hilton Route Start Time Stop Time Status Last Admin Clonidine HCl (Catapres Tablet) 0.2 mg ONCE ONCE PO 09/29/24 02:45 09/29/24 02:46 DC 09/29/24 02:57 Amlodipine Besylate (Norvasc Tablet) 10 mg ONCE ONCE PO 09/29/24 02:45 09/29/24 02:46 DC 09/29/24 02:58 Heparin Sodium (Porcine) 4,000 units ONCE ONCE IV 09/29/24 03:00 09/29/24 03:01 DC 09/29/24 03:32 Heparin Sodium/ Dextrose 250 ml @ 10 mls/hr Q24H IV 09/29/24 03:37 09/29/24 04:00 Amlodipine Besylate (Norvasc Tablet) 10 mg ONCE ONCE PO 09/29/24 03:30 09/29/24 03:37 DC 09/29/24 03:40 Morphine Sulfate 2 mg Q4HPRN PRN IV 09/29/24 03:30 09/29/24 03:43 CHEST RADIOGRAPH Indication: Chest pain Technique: Single frontal view of the chest was obtained COMPARISON: XY CHEST XRAY 1 VIEW on DOS: 08/28/24, XY CHEST XRAY 1 VIEW on DOS: 05/03/23, CHEST PORTABLE on DOS: 05/17/20, CHEST PORTABLE on DOS: 05/15/20 FINDINGS: Lines and Tubes: None Lungs: Clear accept 2 subcentimeter opacities in the right mid lung, probably calcified granulomas. Pleura: No effusion. No pneumothorax. Cardiomediastinal contours: Unremarkable Bones: Unremarkable IMPRESSION: 1. No acute disease. Time of 1ST Reevaluation: 02:12 Reevaluation 1ST: Unchanged Patient Education/Counseling: Diagnosis, Treatment Family Education/Counseling: No Family Present Departure 1 Departure Time of Disposition: 02:56 Impression: Primary Impression: NSTEMI (non-ST elevated myocardial infarction) Disposition: 09 ADMITTED INPATIENT Condition: Stable Comments 43-year-old male with NSTEMI. Heparin initiated in the emergency department. P atient is stable. Patient admitted for further treatment, evaluation and monitoring. Critical Care Note Critical Care Time?: Yes (35 min-critical care time only) Critical care comment: Active chest pain Stability Stability form required: No Heart Score Heart Score: Heart Score Response (Comments) Value History Moderate Suspicious [address]-Deviation 2 Age <45 0 Risk Factors >3 or Hx ASHD 2 Troponin >3 x's Normal limit 2 Total 7 I personally scribed for JASSI RITCHIE MD ([email or web address]) on 09/29/24 at 02:14. Electronically submitted by Kendall George ([email or web address]). I personally scribed for JASSI RITCHIE MD ([email or web address]) on 09/29/24 at 02:21. Electronically submitted by Kendall George ([facility]). I personally scribed for JASSI RITCHIE MD ([email or web address]) on 09/29/24 at 02:44. Electronically submitted by Kendall George ([facility]). I personally scribed for JASSI RITCHIE MD ([email or web address]) on 09/29/24 at 02:54. Electronically submitted by Kendall George ([facility]). JASSI RITCHIE MD Sep 29, 2024 02:14
[2024-09-29 02:25] LABS: Basophils # (auto) 0.3 10 ^3/uL (0-0.2); Basophils % (auto) 3.5 % (0.0-2.0); Eosinophils # (auto) 0.2 10 ^3/uL (0-0.8); Eosinophils % (auto) 2.2 % (0.0-7.0); Hematocrit 42.3 % (41.0-53.0); Hemoglobin 14.1 g/dL (13.5-17.5); Lymphocytes # (auto) 2.2 10 ^3/uL (0.4-5.4); Lymphocytes % (auto) 27.8 % (10.0-50.0); Mean Corpuscular Hemoglobin 27.8 pg (28.0-32.0); Mean Corpuscular Hgb Conc. 33.4 g/dL (32.0-36.0); Mean Corpuscular Volume 83.2 fL (80.0-100.0); Monocytes % (auto) 12.1 % (0.0-12.0); Neutrophils # (auto) 4.4 10 ^3/uL (1.6-8.6); Neutrophils % (auto) 54.4 % (37.0-80.0); Nucleated Red Blood Cells % 0.1 %; Platelet Count (auto) 231 10^3/uL (140-450); Red Blood Cells 5.08 10^6/uL (4.5-5.90); Red Cell Distribution Width 16.1 % (11.8-14.3)
[2024-09-29 02:28] LABS: Urine Bacteria None Seen /hpf (None Seen)
--- NOTE | 2024-09-29 02:29 | DVH ---
CHEST RADIOGRAPH Indication: Chest pain Technique: Single frontal view of the chest was obtained COMPARISON: XY CHEST XRAY 1 VIEW on DOS: 08/28/24, XY CHEST XRAY 1 VIEW on DOS: 05/03/23, CHEST PORTABL E on DOS: 05/17/20, CHEST PORTABLE on DOS: 05/15/20 FINDINGS: Lines and Tubes: None Lungs: Clear accept 2 subcentimeter opacities in the right mid lung, probably calcified granulomas. Pleura: No effusion. No pneumothorax. Cardiomediastinal contours: Unremarkable Bones: Unremarkable IMPRESSION: 1. No acute disease.
[2024-09-29 02:41] LABS: Albumin 4.6 g/dL (3.2-4.8); Alkaline Phosphatase 108 U/L (46-116); Anion Gap 8 (5-15); Aspartate Aminotransferase 22 U/L (13-40); BUN/Creatinine Ratio 15.6 (10.0-20.0); Bilirubin, Total 0.6 mg/dL (0.2-1.0); Blood Urea Nitrogen 17 mg/dL (9-23); Calcium 9.9 mg/dL (8.7-10.4); Carbon Dioxide 26 mmol/L (20-31); Chloride 106 mmol/L (98-107); Sodium 140 mmol/L (136-145); Total Protein 7.1 g/dL (5.7-8.2)
[2024-09-29 02:46] LABS: Alanine Aminotransferase 44 U/L (7-40); Glucose 122 mg/dL (74-106); Lipase 119 U/L (12-53); Potassium 3.5 mmol/L (3.5-5.1)
[2024-09-29 02:51] VITALS: PULSE 71; RESP 22; O2SAT 94
[2024-09-29] MEDS: cloNIDine HCL 0.1 MG TAB PO ONE (02:57)
[2024-09-29] MEDS: amLODIPine BESYLATE 5 MG TAB PO ONE ×2 (02:58→03:40)
[2024-09-29 03:03] LABS: Urine Blood 1+ /uL (Negative); Urine Clarity Clear (Clear); Urine Color Light-Yellow (Yellow); Urine Protein, UAD TRACE (Negative); Urine Specific Gravity 1.018 (1.001-1.035); Urine Squamous Epithelial Cell None Seen /hpf (<5); Urine Urobilinogen Normal (Negative); Urine WBC 1 /HPF (0-3)
[2024-09-29 03:15] LABS: Partial Thromboplastin Time 27.9 SEC (24.5-34.5); Prothrombin Time 10.6 sec (9.3-11.8)
[2024-09-29] MEDS ORDERED: ACETAMINOPHEN 325 MG TAB PO PRN (03:30)
[2024-09-29] MEDS ORDERED: DOCUSATE SOD 100 MG CAP PO PRN (03:30)
[2024-09-29] MEDS ORDERED: ONDANSETRON HCL 4 MG/2 ML VIAL IV PRN (03:30)
[2024-09-29] MEDS ORDERED: DEXTROSE (50%) 50ML SYRG IV PRN (03:30)
[2024-09-29] MEDS ORDERED: hydrALAZINE HCL 20 MG/ML VL IV PRN (03:30)
[2024-09-29] MEDS: HEPARIN SODIUM (PORCINE) 5000 UNITS/ML 1ML VIAL IV ONE ×2 (03:32→12:40)
[2024-09-29] MEDS: MORPHINE SULFATE INJ 2 MG/ml SYRG IV PRN (03:43)
[2024-09-29] MEDS: HEPARIN DRIP/D5W 100UNITS/ML 250 ML IV SCH ×2 (04:00→12:41)
[2024-09-29] MEDS ORDERED: NITROGLYCERIN 0.4 MG SL TAB SL PRN (05:00)
[2024-09-29] MEDS ORDERED: MORPHINE SULFATE INJ 2 MG/ml SYRG IV PRN (05:00)
--- NOTE | 2024-09-29 05:02 | DVHHP2 ---
History of Present Illness Reason for Visit: NSTEMI (non-ST elevated myocardial infarction) History of Present Illness The patient is a 43-year-old male with past medical history of DM, hyperlipidemia, [place], and hypertension who presented to [facility] ED with complaint of chest pain. Patient reports he has been having intermittent episode of chest pain for the past week, radiating to his left arm, associated shortness of breaths, diaphoresis, generalized weakness, elevated blood pressure, getting worse today that prompted this visit. Patient was seen and evaluated in the ED, laboratory data shows WBC 8.0, platelets 231, sodium 140, potassium 3.5, BUN 17, creatinine 1.09, GFR 86, glucose 122, AST 22, ALT 44, BNP 122.32, lipase 119, troponin 3284, blood pressure 186/109 trending down to 159/93, pulse 82, temperature 98.6 F O2 saturation 97% on room air. Chest x-ray showed no acute disease. Patient was started on heparin drip, please see medication orders section in the computer. On my assessment, patient denied chest pain at this moment, no headache, no dizziness, no diaphoresis, no shortness of breath, no nausea, no vomiting, no fever, no chills. Patient was admitted for further evaluation and medical management. Past Medical History DM, High Lipids, HTN, [place] Past Surgical History PTCA Family History Reviewed, noncontributory to the management of this case. Past Social History The patient lives at home, denies smoking, alcohol or illicit drugs abuse. Review of Systems Constitutional: Yes: Weakness; No: Fever, Chills, Sweats, Malaise, Other Eyes: No: Pain, Vision change, Conjunctivae inflammation, Eyelid inflammation, Other, Redness ENT: No: Ear pain, Ear discharge, Nose pain, Nose discharge, Nose congestion, Mouth pain, Mouth swelling, Throat pain, Throat swelling, Other Respiratory: No: Cough, Dry, Shortness of breath, SOB with excertion, Wheezing, Hemoptysis, Pleuritic Pain, Sputum, Wheezing, Other Cardiovascular: Chest Pain; No: Palpitations, Orthopnea, Paroxysmal Noc. Dyspnea, Edema, Lt Headedness, Other Gastrointestinal: No: Nausea, Vomiting, Abdominal Pain, Diarrhea, Constipation, Melena, Hematochezia, Other Genitourinary: No Dysuria, No Frequency, No Incontinence, No Hematuria, No Retention, No Other Musculoskeletal: arm pain; No: other, neck pain, shoulder pain, back pain, hand pain, leg pain, foot pain Skin: No: Rash, Lesions, Jaundice, Bruising, Other Neurological: No: Weakness, Numbness, Incoordination, Change in speech, Confusion, Seizures, Other Allergies: Coded Allergies: No Known Drug Allergy (Verified Allergy, Unknown, 08/30/17) Medications Current Medications Medications Dose Ordered Sig/[place] Route Start Time Stop Time Status Last Admin Dose Admin Heparin Sodium/ Dextrose 250 ml @ 10 mls/hr Q24H IV 09/29/24 03:37 09/29/24 04:00 10 MLS/HR Aspirin 81 mg DAILY PO 09/29/24 10:00 Atorvastatin Calcium 20 mg HS PO 09/29/24 22:00 Amlodipine Besylate 10 mg DAILY PO 09/30/24 10:00 Hydralazine HCl 10 mg Q6HP PRN IV 09/29/24 03:30 Diagnostic Test (Pha) 1 strip ACHS 09/29/24 07:00 Insulin Human Regular ACHS SC 09/29/24 07:00 Dextrose 50 ml UD PRN IV 09/29/24 03:30 Sodium Chloride 10 ml Q8HR IV 09/29/24 06:00 Acetaminophen/ Hydrocodone Bitart 1 tab Q4HP PRN PO 09/29/24 03:30 Ondansetron HCl 4 mg Q4HP PRN IV 09/29/24 03:30 Docusate Sodium 100 mg BIDPRN PRN PO 09/29/24 03:30 Acetaminophen 650 mg Q6HP PRN PO 09/29/24 03:30 Morphine Sulfate 2 mg Q4HPRN PRN IV 09/29/24 03:30 09/29/24 03:43 2 MG Exam Vital Signs Vital Signs Date Time Temp Pulse Resp B/P (MAP) Pulse Ox O2 Delivery O2 Flow Rate FiO2 09/29/24 04:17 61 19 189/110 09/29/24 02:59 98.5 96 98.5 09/29/24 02:51 Room Air* 0 21 General Appearance: Alert, Oriented X3, Cooperative, No acute distress HEENT: Atraumatic, PERRLA, EOMI, Mucous membr. moist/pink Respiratory: Clear to auscultation, Normal air movement Cardiovascular: Regular rate, Normal S1, Normal S2, No murmurs Abdominal: Normal bowel sounds, Soft, No tenderness, No hepatospenomegaly, No masses Extremities: No clubbing, No cyanosis, No edema, Normal pulses, No tenderness/swelling Skin: No rashes, No breakdown, No significant lesion Neuro: Normal speech, Normal tone, Sensation intact, Cranial nerves 3-12 NL, Reflexes 2+, Other (Generalized weakness) Psych/Mental Status: Mental status NL, Mood NL Labs/Xrays Labs Test 09/29/24 02:55 09/29/24 02:26 09/29/24 02:05 Range/Units Troponin I High Sensitivity 3365 *H </=54 ng/L Urine Color Light-yellow Yellow Urine Clarity Clear Clear Urine pH 6.0 5.0-9.0 Urine Specific [place] 1.018 1.001-1.035 Urine Protein Trace H Negative Urine Ketones Negative Negative Urine Blood 1+ H Negative /uL Urine Nitrite Negative Negative Urine Bilirubin Negative Negative Urine Urobilinogen Normal Negative mg/dL Urine Leukocyte Esterase Negative Negative /uL Urine RBC 2 0 - 3 /hpf Urine Microscopic WBC 1 0-3 /HPF Urine Squamous Epithelial Cells None seen <5 /hpf Urine Bacteria None seen None Seen /hpf Urine Glucose Normal Normal mg/dL White Blood Count 8.0 4.4-10.8 10^3/uL Red Blood Count 5.08 4.5-5.90 10^6/uL Hemoglobin 14.1 13.5-17.5 g/dL Hematocrit 42.3 41.0-53.0 % Mean Corpuscular Volume 83.2 80.0-100.0 fL Mean Corpuscular Hemoglobin 27.8 L 28.0-32.0 pg Mean Corpuscular Hemoglobin Concent 33.4 32.0-36.0 g/dL Red Cell Distribution Width 16.1 H 11.8-14.3 % Platelet Count 231 140-450 10^3/uL Mean Platelet Volume 8.7 6.9-10.8 fL Neutrophils (%) (Auto) 54.4 37.0-80.0 % Lymphocytes (%) (Auto) 27.8 10.0-50.0 % Monocytes (%) (Auto) 12.1 H 0.0-12.0 % Eosinophils (%) (Auto) 2.2 0.0-7.0 % Basophils (%) (Auto) 3.5 H 0.0-2.0 % Neutrophils # (Auto) 4.4 1.6-8.6 10 ^3/uL Lymphocytes # (Auto) 2.2 0.4-5.4 10 ^3/uL Monocytes # (Auto) 1.0 0-1.3 10 ^3/uL Eosinophils # (Auto) 0.2 0-0.8 10 ^3/uL Basophils # (Auto) 0.3 H 0-0.2 10 ^3/uL Nucleated Red Blood Cells 0.1 % Prothrombin Time 10.6 9.3-11.8 sec Prothrombin Time INR 1.00 0.9-1.15 Activated Partial Thromboplast Time 27.9 24.5-34.5 SEC Sodium Level 140 136-145 mmol/L Potassium Level 3.5 3.5-5.1 mmol/L Chloride Level 106 98-107 mmol/L Carbon Dioxide Level 26 20-31 mmol/L Anion Gap 8 5-15 Blood Urea Nitrogen 17 9-23 mg/dL Creatinine 1.09 0.700-1.30 mg/dL Glomerular Filtration Rate Calc 86 >90 mL/min BUN/Creatinine Ratio 15.6 10.0-20.0 Serum Glucose 122 H 74-106 mg/dL Calcium Level 9.9 8.7-10.4 mg/dL Total Bilirubin 0.6 0.2-1.0 mg/dL Aspartate Amino Transferase (AST) 22 13-40 U/L Alanine Aminotransferase (ALT) 44 H 7-40 U/L Alkaline Phosphatase 108 46-116 U/L B-Type Natriuretic Peptide 122.32 0-100 pg/mL Total Protein 7.1 5.7-8.2 g/dL Albumin 4.6 3.2-4.8 g/dL Lipase 119 H 12-53 U/L PATIENT: RONALDO FABIAN ACCT: [id number] UNIT: [id number] : 1980 LOC: ER ROOM / BED: / AGE / SEX: 43 / M ADM STATUS: REG ER SERVICE 0200 ORDERING PHYSICIAN: KAT WHITNEY PAC PROCEDURE(s): CXRP - CHEST PORTABLE REASON: Chest pain ORDER NUMBER(s): [id number], ACCESSION NUMBER(s): [id number] CHEST RADIOGRAPH Indication: Chest pain Technique: Single frontal view of the chest was obtained COMPARISON: XY CHEST XRAY 1 VIEW on DOS: 08/28/24, XY CHEST XRAY 1 VIEW on DOS: 05/03/23, CHEST PORTABLE on DOS: 05/17/20, CHEST PORTABLE on DOS: 05/15/20 FINDINGS: Lines and Tubes: None Lungs: Clear accept 2 subcentimeter opacities in the right mid lung, probably calcified granulomas. Pleura: No effusion. No pneumothorax. Cardiomediastinal contours: Unremarkable Bones: Unremarkable IMPRESSION: 1. No acute disease. Assessment/Plan Assessment/Plan Acute chest pain Hypertensive urgency Generalized weakness NSTEMI (non-ST elevated myocardial infarction) Plan 1. Admit to telemetry unit 2. Breathing treatment 3. Pain control management 4. Management of fluids and electrolytes 5. Consultation for cardiology 6. Diagnostic tests chest x-ray 7. DVT prophylaxis-on heparin drip 8. Repeat labs CBC, CMP in a.m. 9. Continue with current medical management 10. Treatment plan discussed with patient and RN. Patient verbalized understanding. Plan discussed with: Patient, Other (RN) My Orders Orders - HUSSAIN PEGUERO DNP Procedure Category Date Status Time Complete Blood Count LAB 09/29/24 Logged 04:00 Comprehensive LAB 09/29/24 Logged Metabolic Panel 04:00 Aspirin Tablet PHA 09/29/24 In Process 10:00 Atorvastatin (Lipitor) PHA 09/29/24 In Process 22:00 Hydralazine Injection PHA 09/29/24 In Process (Apresoline Inject 03:30 Consistent DIET 09/29/24 Transmitted Carb(Ccho)Diabetes Breakfast Glucose Blood PHA 09/29/24 In Process (Accu-Chek Comfort 07:00 Insulin R (Human) PHA 09/29/24 In Process (Insulin R) 07:00 Dextrose 50% Syringe PHA 09/29/24 In Process 03:30 Allergies KATHRYN 09/29/24 In Process 03:21 Code Status CODE 09/29/24 Transmitted 03:21 Sodium Chloride Lock PHA 09/29/24 In Process (Saline Lock Ns) 06:00 Oxygen Per Hour RT 09/29/24 Transmitted 03:21 Hydrocodone-Acet PHA 09/29/24 In Process 5/325mg Tab ([place] 03:30 Ondansetron Hcl PHA 09/29/24 In Process (Zofran) 03:30 Docusate Sodium PHA 09/29/24 In Process Capsule (Colace 03:30 Complete Blood Count LAB 09/30/24 Verified 04:00 Comprehensive LAB 09/30/24 Verified Metabolic Panel 04:00 Condition: Serious KATHRYN 09/29/24 In Process 03:21 Acetaminophen Tablet PHA 09/29/24 In Process (Tylenol Tablet) 03:30 Bedrest With Bathroom KATHRYN 09/29/24 In Process Privileg 03:21 Morphine Sulfate PHA 09/29/24 In Process Injection 03:30 Sequential KATHRYN 09/29/24 In Process Compression Device * Cardiology Consult CONS 09/29/24 Transmitted 03:21 Amlodipine Tablet PHA 09/30/24 In Process (Norvasc Tablet) 10:00 Admit ADMIT 09/29/24 Verified 05:00 Nitroglycerin PHA 09/29/24 Verified Sublingual (Ntrostat 05:00 Morphine Sulfate PHA 09/29/24 Verified Injection 05:00 Stat Ekg For Chest KATHRYN 09/29/24 Verified Pain 05:00 Notify Md Of Changes [facility] 09/29/24 Verified From Base 05:[address] [facility] 09/29/24 Verified 24 Hours 05:00 Emergency Dysrhythmia KATHRYN 09/29/24 Verified Protocol 05:00 Rhythm Strips Once [facility] 09/29/24 Verified Every Shift 05:00 Oxygen By Nasal RT 09/29/24 Verified Cannula 05:00 Problem List: (1) Acute chest pain (2) Hypertensive urgency (3) Generalized weakness (4) NSTEMI (non-ST elevated myocardial infarction) Date of Service: Sep 29, 2024 Billing Provider: HUSSAIN PEGUERO DNP Common Visit Codes: [id number] INP/OBS CARE (HIGH) HUSSAIN PEGUERO DNP Sep 29, 2024 05:02
[2024-09-29 05:44] LABS: Basophils # (auto) 0.2 10 ^3/uL (0-0.2); Basophils % (auto) 1.9 % (0.0-2.0); Eosinophils # (auto) 0.2 10 ^3/uL (0-0.8); Eosinophils % (auto) 2.8 % (0.0-7.0); Hematocrit 40.6 % (41.0-53.0); Lymphocytes # (auto) 2.5 10 ^3/uL (0.4-5.4); Lymphocytes % (auto) 31.2 % (10.0-50.0); Mean Corpuscular Hemoglobin 28.5 pg (28.0-32.0); Mean Corpuscular Hgb Conc. 34.4 g/dL (32.0-36.0); Mean Corpuscular Volume 82.9 fL (80.0-100.0); Monocytes # (auto) 0.9 10 ^3/uL (0-1.3); Monocytes % (auto) 11.5 % (0.0-12.0); Neutrophils # (auto) 4.3 10 ^3/uL (1.6-8.6); Neutrophils % (auto) 52.6 % (37.0-80.0); Nucleated Red Blood Cells % 0.1 %; Platelet Count (auto) 233 10^3/uL (140-450); Red Blood Cells 4.89 10^6/uL (4.5-5.90); Red Cell Distribution Width 15.7 % (11.8-14.3); White Blood Cell 8.2 10^3/uL (4.4-10.8)
[2024-09-29 05:55] LABS: Albumin 4.6 g/dL (3.2-4.8); Alkaline Phosphatase 108 U/L (46-116); Anion Gap 7 (5-15); Aspartate Aminotransferase 22 U/L (13-40); BUN/Creatinine Ratio 16.3 (10.0-20.0); Bilirubin, Total 0.6 mg/dL (0.2-1.0); Blood Urea Nitrogen 17 mg/dL (9-23); Calcium 9.4 mg/dL (8.7-10.4); Carbon Dioxide 26 mmol/L (20-31); Sodium 141 mmol/L (136-145)
[2024-09-29 05:56] LABS: Alanine Aminotransferase 44 U/L (7-40); Chloride 108 mmol/L (98-107); Glucose 129 mg/dL (74-106); Potassium 3.5 mmol/L (3.5-5.1)
--- NOTE | 2024-09-29 05:56 | ECG ---
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
[2024-09-29] MEDS: SODIUM CHLOR 0.9% PF (SALINE LOCK) 10ML VIAL/SYR IV SCH (06:00)
[2024-09-29] MEDS: ACCU-CHEK COMFORT CURVE STRIP VI SCH (06:25)
[2024-09-29] MEDS: InsuLIN REG 1unit/0.01ml Soln (100units/ml) SC SCH (06:41)
[2024-09-29 07:30] VITALS: PULSE 77; RESP 18; O2SAT 91
[2024-09-29 08:10] LABS: Magnesium 1.9 mg/dL (1.6-2.6)
[2024-09-29 08:51] LABS: Amphetamine Screen, Urine Neg (NEGATIVE)
[2024-09-29 08:53] LABS: Barbiturate Scree,Urine Neg (NEGATIVE); Benzodiazephine Screen, Urine Neg (NEGATIVE); Cannabinoid Screen, Urine Neg (NEGATIVE); Cocaine Screen, Urine Neg (NEGATIVE); Opiate Scree,Urine Neg (NEGATIVE); Phencyclidine Screen, Urine Neg (NEGATIVE)
[2024-09-29] MEDS: ASPirin 81 mg TAB PO SCH (09:31)
--- NOTE | 2024-09-29 10:03 | DVHINCON2 ---
JOSE E KEARNEY [facility] 09/29/24 1003: Date Seen: Sep 29, 2024 Referring Physician MICHAEL Shipley Reason for Consultation NSTEMI History of Present Illness This is a 43-year-old male patient who presents to emergency room with chief complaint of chest pain. The patient reports he has been having intermittent chest pain for approximately one week but did decided to come to the emergency room for further evaluation. He describes the chest pain as unprovoked, intermittent, pressure-like in nature, left-sided with radiation down his left arm. Associated symptoms include shortness of breath. Initial twelve lead electrocardiogram reveals normal sinus rhythm with ST segment changes to inferior leads and left ventricular hypertrophy. Initial troponin level of 3284ng/L with flat trend thereafter. Significant past medical history includes coronary artery disease status post PTCA X 2 ELZBIETA (on Brilinta and aspirin), hypertension, dyslipidemia, type 2 diabetes mellitus, tobacco use, and obesity. The patient does not follow up with a air compressor mechanic in the outpatient setting. The patient reports that his last stent was placed on December 14, 2022. Past Medical History Past medical history reviewed. No other significant than mentioned above. Past Surgical History PTCA X 2 ELZBIETA (2022) Family History: Diabetes mellitus G8 MOTHER G8 FATHER FH: cancer G8 MOTHER Family History Family history reviewed. Social History Patient has a 12.5 pack-year history, smokes approximately half a pack per day Denies any illicit drug use Denies any alcohol use Allergies: Coded Allergies: No Known Drug Allergy (Verified Allergy, Unknown, 08/30/17) Home Meds Active Scripts Tamsulosin Hcl (Tamsulosin Hcl) 0.4 Mg Cap, 1 CAP PO DAILY for 10 Days, #30 CAP 5 Refills Prov:NAHUN MARTINEZ RESIDENT 08/28/24 Reported Medications Ticagrelor Base (BRILINTA) 90 Mg Tab, 1 TAB PO BID 05/03/23 Amlodipine Besylate (Amlodipine Besylate) 10 Mg Tab, 1 TAB PO DAILY 05/03/23 Lisinopril (Lisinopril) 10 Mg Tab, 10 MG PO DAILY for 30 Days, MG 05/16/20 Aspirin (Aspirin Low Dose) 81 Mg Chw, 1 TAB PO DAILY, #30 TAB 3 Refills 05/16/20 Metformin Hydrochloride (Metformin Hcl) 500 Mg Tab, 1 TAB PO BID 05/16/20 Atorvastatin Calcium (ATORVASTATIN CALCIUM) 40 Mg Tab, 1 TAB PO 05/16/20 Home Meds Home medications reviewed. Current Medications Current Medications Medications (Trade) Dose Ordered Sig/[place] Route PRN Reason Start Time Stop Time Status Last Admin Heparin Sodium/ Dextrose 250 ml @ 10 mls/hr Q24H IV 09/29/24 03:37 09/29/24 04:00 Aspirin 81 mg DAILY PO 09/29/24 10:00 09/29/24 09:31 Atorvastatin Calcium (Lipitor) 20 mg HS PO 09/29/24 22:00 Amlodipine Besylate (Norvasc Tablet) 10 mg DAILY PO 09/30/24 10:00 Hydralazine HCl (Apresoline Injection) 10 mg Q6HP PRN IV SBP>150 09/29/24 03:30 Diagnostic Test (Pha) (Accu-Chek Comfort Curve T) 1 strip ACHS 09/29/24 07:00 09/29/24 06:25 Insulin Human Regular (InsuLIN R) ACHS SC 09/29/24 07:00 09/29/24 06:41 Dextrose 50 ml UD PRN IV Blood Sugar LESS THAN 60 09/29/24 03:30 Sodium Chloride (Saline Lock Ns) 10 ml Q8HR IV 09/29/24 06:00 Acetaminophen/ Hydrocodone Bitart ([place] 5/325MG Tab) 1 tab Q4HP PRN PO MODERATE PAIN (4-6 PAIN SCALE) 09/29/24 03:30 Ondansetron HCl (Zofran) 4 mg Q4HP PRN IV NAUSEA / VOMITING 09/29/24 03:30 Docusate Sodium (Colace Capsule) 100 mg BIDPRN PRN PO FOR CONSTIPATION 09/29/24 03:30 Acetaminophen (Tylenol Tablet) 650 mg Q6HP PRN PO PAIN SCALE 1-3 OR TEMP>100.4 09/29/24 03:30 Morphine Sulfate 2 mg Q4HPRN PRN IV SEVERE PAIN (7-10 PAIN SCALE) 09/29/24 03:30 09/29/24 03:43 Nitroglycerin (Ntrostat Sublingual) 0.4 mg Q5MINP PRN SL FOR CHEST PAIN 09/29/24 05:00 Morphine Sulfate 2 mg Q30M PRN IV FOR CHEST PAIN 09/29/24 05:00 Review of Systems Constitutional: No symptom reported Ears, Nose, & Throat: No symptom reported Eyes: No symptom reported Neurological: No symptoms reported Pulmonary/Respiratory: Shortness of breath Cardiovascular: Chest pain Gastrointestinal: No symptom reported Genitourinary: No symptom reported Musculoskeletal: No symptom reported Skin: No symptom reported Psychiatric: No symptom reported Endocrine: No symptom reported Hematologic/Lymphatic: No symptom reported Vital Signs Vital Signs Date Time Temp Pulse Resp B/P (MAP) Pulse Ox O2 Delivery O2 Flow Rate FiO2 09/29/24 09:11 97 20 114/62 (79) 97 09/29/24 07:30 Room Air* 0 21 09/29/24 07:30 97.8 97.8 Physical Exam General Appearance: Cooperative. Obese Pulmonary/Respiratory: Clear, bilateral breaths sounds. Cardiovascular/Chest: Regular rate and rhythm. Peripheral Pulses: 2+ Radial (R). 2+ Radial (L). 2+ Pedal (R). 2+ Pedal (L) Abdominal Exam: Normal bowel sounds. Ankle Exam: Negative ankle edema Lower extremities: Negative lower extremity edema Neuro/Mental Status: A/OX4, coherent. Thoughts/Psych: Normal thought pattern. Appropriate mood and affect. Good judgment and insight. Appearance: No acute distress. Skin Exam: Normal inspection. Normal color. Warm and dry. Labs/Diagnostic Data Labs Test 09/29/24 09:09 09/29/24 06:24 09/29/24 05:23 09/29/24 02:26 Range/Units POC Glucose 136 H 70-106 mg/dl White Blood Count 8.2 4.4-10.8 10^3/uL Red Blood Count 4.89 4.5-5.90 10^6/uL Hemoglobin 14.0 13.5-17.5 g/dL Hematocrit 40.6 L 41.0-53.0 % Mean Corpuscular Volume 82.9 80.0-100.0 fL Mean Corpuscular Hemoglobin 28.5 28.0-32.0 pg Mean Corpuscular Hemoglobin Concent 34.4 32.0-36.0 g/dL Red Cell Distribution Width 15.7 H 11.8-14.3 % Platelet Count 233 140-450 10^3/uL Mean Platelet Volume 8.9 6.9-10.8 fL Neutrophils (%) (Auto) 52.6 37.0-80.0 % Lymphocytes (%) (Auto) 31.2 10.0-50.0 % Monocytes (%) (Auto) 11.5 0.0-12.0 % Eosinophils (%) (Auto) 2.8 0.0-7.0 % Basophils (%) (Auto) 1.9 0.0-2.0 % Neutrophils # (Auto) 4.3 1.6-8.6 10 ^3/uL Lymphocytes # (Auto) 2.5 0.4-5.4 10 ^3/uL Monocytes # (Auto) 0.9 0-1.3 10 ^3/uL Eosinophils # (Auto) 0.2 0-0.8 10 ^3/uL Basophils # (Auto) 0.2 0-0.2 10 ^3/uL Nucleated Red Blood Cells 0.1 % Sodium Level 141 136-145 mmol/L Potassium Level 3.5 3.5-5.1 mmol/L Chloride Level 108 H 98-107 mmol/L Carbon Dioxide Level 26 20-31 mmol/L Anion Gap 7 5-15 Blood Urea Nitrogen 17 9-23 mg/dL Creatinine 1.04 0.700-1.30 mg/dL Glomerular Filtration Rate Calc 91 >90 mL/min BUN/Creatinine Ratio 16.3 10.0-20.0 Serum Glucose 129 H 74-106 mg/dL Hemoglobin A1c 6.5 H <5.7 % A1C Calcium Level 9.4 8.7-10.4 mg/dL Magnesium Level 1.9 1.6-2.6 mg/dL Total Bilirubin 0.6 0.2-1.0 mg/dL Aspartate Amino Transferase (AST) 22 13-40 U/L Alanine Aminotransferase (ALT) 44 H 7-40 U/L Alkaline Phosphatase 108 46-116 U/L Total Protein 7.0 5.7-8.2 g/dL Albumin 4.6 3.2-4.8 g/dL Triglycerides Level 165 H < 150 mg/dL Cholesterol Level 131 < 200 mg/dL LDL Cholesterol 75 < 100 mg/dL HDL Cholesterol 29 L 40-59 mg/dL Thyroid Stimulating Hormone (TSH) 0.84 0.55-4.78 uIU/mL Urine Color Light-yellow Yellow Urine Clarity Clear Clear Urine pH 6.0 5.0-9.0 Urine Specific Crum 1.018 1.001-1.035 Urine Protein Trace H Negative Urine Ketones Negative Negative Urine Blood 1+ H Negative /uL Urine Nitrite Negative Negative Urine Bilirubin Negative Negative Urine Urobilinogen Normal Negative mg/dL Urine Leukocyte Esterase Negative Negative /uL Urine RBC 2 0 - 3 /hpf Urine Microscopic WBC 1 0-3 /HPF Urine Squamous Epithelial Cells None seen <5 /hpf Urine Bacteria None seen None Seen /hpf Urine Glucose Normal Normal mg/dL Urine Opiates Screen Neg NEGATIVE Urine Fentanyl Screen Neg NEGATIVE Urine Barbiturates Screen Neg NEGATIVE Urine Phencyclidine Screen Neg NEGATIVE Urine Amphetamines Screen Neg NEGATIVE Urine Benzodiazepines Screen Neg NEGATIVE Urine Cocaine Screen Neg NEGATIVE Urine Cannabinoids Screen Neg NEGATIVE Test 09/29/24 02:05 Range/Units Prothrombin Time 10.6 9.3-11.8 sec Prothrombin Time INR 1.00 0.9-1.15 Activated Partial Thromboplast Time 27.9 24.5-34.5 SEC B-Type Natriuretic Peptide 122.32 0-100 pg/mL Lipase 119 H 12-53 U/L Assessment NSTEMI, rule out progressive coronary artery disease Coronary artery disease status post PTCA x 2 ELZBIETA (on Brilinta and aspirin) Hypertensive urgency Dyslipidemia Type 2 diabetes mellitus Tobacco use Obesity Plan/Recommendation We will continue with the following plan/recommendations (Dr. Aranda): * Transthoracic echocardiogram reveals EF 60% * Chest pain protocol * Continue heparin drip per pharmacy protocol * Resume dual antiplatelet therapy * Aggressive blood pressure control * Lipid-lowering agent * Coronary angiogram Patient seen and examined at bedside with . A long conversation was had between patient and MD regarding plan of care. At this time we will recommend for the patient to undergo a coronary angiogram with left heart catheterization given clinical presentation, twelve lead electrocardiogram changes, elevated troponin, and past medical history. Patient was very adamant about going home at this time. We have discussed the risks with the patient regarding not having the procedure done. The procedure was discussed with the patient in full detail including risks and benefits. Risks include but are not limited to bleeding, contrast-induced nephropathy, stroke, and even . The patient understands and is agreeable to undergo the procedure. If the patient stays, we will tentatively schedule the patient for coronary angiogram with left heart catheterization on 10/01/2024. In the meantime, continue patient on heparin drip. Thank you for allowing us to care for this patient. Please call with any questions or concerns. Critical care time spent: 40 minutes This medical document was created using an electronic medical record system with voice recognition software and computerized dictation system. Although this document has been carefully reviewed, there might still be some phonetic and typographical errors. Occasional wrong-word or ``sound-alike substitutions may have occurred due to the inherent limitations of voice recognition software. These areas are purely typographical due to imperfections of the software programs and do not reflect any compromise in the patient's medical care. Please read the chart carefully and recognize, using context, where these substitutions have occurred. Plan discussed with: Patient, Spouse NYHA Physical activity limitations: NA Date of Service: Sep 29, 2024 Billing Provider: JOSE E KEARNEY Cardiology Common Codes: 96358-[id number] INP/OBS CARE (High) Cardiology Consultation Codes: 81455-[id number] CONSULT <45MIN PATRICIA ARANDA MD 09/29/24 1549: Family History: Diabetes mellitus G8 MOTHER G8 FATHER FH: cancer G8 MOTHER Allergies: Coded Allergies: No Known Drug Allergy (Verified Allergy, Unknown, 08/30/17) Home Meds Active Scripts Tamsulosin Hcl (Tamsulosin Hcl) 0.4 Mg Cap, 1 CAP PO DAILY for 10 Days, #30 CAP 5 Refills Prov:NAHUN MARTINEZ RESIDENT 08/28/24 Reported Medications Ticagrelor Base (BRILINTA) 90 Mg Tab, 1 TAB PO BID 05/03/23 Amlodipine Besylate (Amlodipine Besylate) 10 Mg Tab, 1 TAB PO DAILY 05/03/23 Lisinopril (Lisinopril) 10 Mg Tab, 10 MG PO DAILY for 30 Days, MG 05/16/20 Aspirin (Aspirin Low Dose) 81 Mg Chw, 1 TAB PO DAILY, #30 TAB 3 Refills 05/16/20 Metformin Hydrochloride (Metformin Hcl) 500 Mg Tab, 1 TAB PO BID 05/16/20 Atorvastatin Calcium (ATORVASTATIN CALCIUM) 40 Mg Tab, 1 TAB PO 05/16/20 Plan/Recommendation PERSONALLY REVIEWED PT CHART AT [facility] FOR 60 MINS REVIEWED PREVIOUS CATH HAD LONG TALK WITH PT AND PT ANGRY AND THREATENING SPEECH TOWARDS LAST CARDS, 2/2 TO PAIN DURING CATH HE HAS MULTIVESSEL CAD HE NEEDS TO LEAVE AMA FOR A FAMILY EMERGENCY PT CLEARLY UNDERSTANDS HIGH RISK FOR AL/ BY LEAVING RN AND PATTERN DESIGNER AT BEDSIDE PT IS ON DAPT, HE HAS HIW OWN CARDS OFFICE DR SHORT WE OFFERED TO CALL THEM Emiliano PERALTA OVER . HE ADAMANTLY REFUSED THIS OFFERED [facility] ON TUESDAY ,HEPARIN GTT PT WILL CONSIDER IT OR MAY LEAVE AND COME BACK JOSE E KEARNEY Sep 29, 2024 10:03 PATRICIA ARANDA MD Sep 29, 2024 15:49
[2024-09-29 10:21] VITALS: PULSE 88; RESP 18; O2SAT 96
[2024-09-29 11:54] LABS: INR 0.97 (0.9-1.15); Partial Thromboplastin Time 34.2 SEC (24.5-34.5); Prothrombin Time 10.3 sec (9.3-11.8)
--- NOTE | 2024-09-29 12:32 | DVHSR ---
APPROVED REPORT EXAM: Two-dimensional and M-mode echocardiogram with Doppler and color Doppler. Blood Pressure: 156/95 mmHg INDICATION evaluate cardiac function, wall motion RISK FACTORS Obesity: Height: 6'1, Weight: 279 DIMENSIONS LVDd5.4 (3.8-5.7cm)LA (2D)4.1 (1.9-4.0cm)Aortic Root3.4 (2.0-3.7cm) LVDs4.8 (2.5-4.0cm)LA (MM) (1.9-4.0cm)Aortic Cusp Exc1.8 (1.5-2.0cm) EF (%) 50.0 (55-70%)Rt. Atrium (1.9-4.0cm)Asc. Aorta3.6 cm IVSd1.7 (0.7-1.1cm)RV (D) (1.8-2.4cm) PWd1.0 (0.7-1.1cm) Mitral Valve MitralMitral Stenosis E wave1.02m/sMV Mean GR.mmHg A wave0.94m/sMV Peak GR.100mmHg E/A ratio1.12D MVAcm2 DECEL [id number] 1/2 Timems Aortic Valve Aortic ValveAortic Stenosis V11.08m/Alvin Mean GR.5mmHg V21.44m/Alvin Peak GR.8mmHg LVOT Diameter2.4 (1.8-2.4cm)Doppler AVA3.39cm2 Pulmonic Valve V20.93m/s Other Information Quality : Technically LimitedRhythm : Technically limited study due to patient position.body habitus. Conclusion lvef 60% by visual estimate severe LVH anteroapical wall motion , hx of LAD disease normal rv function left atrium enlarged mild mitral regurg normal pericardium
[2024-09-29 14:00] VITALS: BP 151/90
[2024-09-29] MEDS: LISINOPRIL 5 MG TAB PO ONE (15:25)
[2024-09-29] MEDS: CHLORTHALIDONE 25 MG TAB PO ONE (15:26)
[2024-09-29] MEDS: HYDROcodone-ACET 5/325MG TAB PO PRN (15:29)
[2024-09-29 17:00] VITALS: BP 157/91; PULSE 71; RESP 18; TEMP 97.5; O2SAT 98
[2024-09-29 20:24] LABS: INR 0.99 (0.9-1.15); Prothrombin Time 10.5 sec (9.3-11.8)
[2024-09-29] MEDS ORDERED: TICAGRELOR 90 MG TAB PO SCH (22:00)
[2024-09-29] MEDS ORDERED: ATORVASTATIN 20 MG TAB PO SCH (22:00)
[2024-09-30] MEDS ORDERED: CHLORTHALIDONE 25 MG TAB PO SCH (08:00)
[2024-09-30] MEDS ORDERED: amLODIPine BESYLATE 5 MG TAB PO SCH (10:00)
[2024-09-30] MEDS ORDERED: LISINOPRIL 5 MG TAB PO SCH (10:00)
== END 2024-09-29 20:03 | disposition left against medical advice (07) | DRG 190 ==
LOC: ER 01:58 → OVERFLOW 05:00 → TELE-CENTR 09:47
PROVIDERS: ADMIT Nurse Practitioner Family; ATTEND Nurse Practitioner Family
DX: I21.4 Non-ST elevation (NSTEMI) myocardial infarction (principal); E11.9 Type 2 diabetes mellitus without complications; I11.9 Hypertensive heart disease without heart failure; E78.5 Hyperlipidemia, unspecified; I16.0 Hypertensive urgency; I25.10 Atherosclerotic heart disease of native coronary artery without angina pectoris; E66.9 Obesity, unspecified; Z68.36 Body mass index [BMI] 36.0-36.9, adult; F17.210 Nicotine dependence, cigarettes, uncomplicated; Z83.3 Family history of diabetes mellitus; Z95.5 Presence of coronary angioplasty implant and graft; Z79.84 Long term (current) use of oral hypoglycemic drugs; Z79.899 Other long term (current) drug therapy; Z79.82 Long term (current) use of aspirin
CPT/HCPCS: 36415; 71045; 80053; 80061; 80307; 81001; 82962; 83036; 83690; 83735; 83880; 84443; 84484; 85025; 85610; 85730; 93005; 93306; 96365; 96375; 99291; G0378; J1815

== ENCOUNTER 2024-11-16 22:00 | Inpatient (IN) | payer MEDICAID ==
[~2024-11-16] VITALS: Ht 188 cm; Wt 139.1 kg
[2024-11-16 22:33] LABS: Basophils # (auto) 0.1 10 ^3/uL (0-0.2); Basophils % (auto) 1.3 % (0.0-2.0); Eosinophils # (auto) 0.1 10 ^3/uL (0-0.8); Eosinophils % (auto) 1.5 % (0.0-7.0); Lymphocytes # (auto) 2.2 10 ^3/uL (0.4-5.4); Lymphocytes % (auto) 26.9 % (10.0-50.0); Mean Corpuscular Hemoglobin 27.8 pg (28.0-32.0); Mean Corpuscular Hgb Conc. 33.3 g/dL (32.0-36.0); Mean Corpuscular Volume 83.4 fL (80.0-100.0); Monocytes # (auto) 0.5 10 ^3/uL (0-1.3); Monocytes % (auto) 6.7 % (0.0-12.0); Neutrophils # (auto) 5.1 10 ^3/uL (1.6-8.6); Neutrophils % (auto) 63.6 % (37.0-80.0); Nucleated Red Blood Cells % 0.1 %; Platelet Count (auto) 286 10^3/uL (140-450); Red Blood Cells 5.04 10^6/uL (4.5-5.90); Red Cell Distribution Width 15.7 % (11.8-14.3)
--- NOTE | 2024-11-16 22:36 | ED.PDOC ---
HPI Comments 44-year-old male came to ER for chest pains. Patient was seen here last month (September 29), for chest pains and was diagnosed with NSTEMI, rule out progressive coronary artery disease, Coronary artery disease status post PTCA x 2 ELZBIETA (on Brilinta and aspirin), Hypertensive urgency, Dyslipidemia, Type 2 diabetes mellitus. Seen by digital design engineer then, and was advised to undergo cardiac catheterization, however patient signed AMA. Since then patient has been having intermittent episodes of chest pains, usually occurring after meals, substernal, pressure, nonradiating. Worsening of chest pains prompted patient to come back to the ER Chief Complaint: Chest Pain Time Seen by MD: 22:33 Primary Care Provider: sanchez Reviewed Notes: Nurses Notes Allergies: Coded Allergies: No Known Drug Allergy (Verified Allergy, Unknown, 08/30/17) Home Meds Active Scripts Tamsulosin Hcl (Tamsulosin Hcl) 0.4 Mg Cap, 1 CAP PO DAILY for 10 Days, #30 CAP 5 Refills Prov:NAHUN MARTINEZ RESIDENT 08/28/24 Reported Medications Ticagrelor Base (BRILINTA) 90 Mg Tab, 1 TAB PO BID 05/03/23 Amlodipine Besylate (Amlodipine Besylate) 10 Mg Tab, 1 TAB PO DAILY 05/03/23 Lisinopril (Lisinopril) 10 Mg Tab, 10 MG PO DAILY for 30 Days, MG 05/16/20 Aspirin (Aspirin Low Dose) 81 Mg Chw, 1 TAB PO DAILY, #30 TAB 3 Refills 05/16/20 Metformin Hydrochloride (Metformin Hcl) 500 Mg Tab, 1 TAB PO BID 05/16/20 Atorvastatin Calcium (ATORVASTATIN CALCIUM) 40 Mg Tab, 1 TAB PO 05/16/20 Information Source: Patient Mode of Arrival: Ambulatory Severity: Moderate Timing: Minutes Duration: Days Prehospital treatment: None Location: Substernal Radiation: No Radiation Cardiac Risk Factors: HTN, Diabetes History of: Similar pain in past, ID Associated Signs and Symptoms: SOB Past Medical History PAST MEDICAL HISTORY: DM, High Lipids, HTN, ID Surgical History: PTCA Family History Family History: Family hx of DM, Family hx of Cancer Social History Smoker: Cigarettes Alcohol: Occasionally Drugs: Marijuana Lives In: Home Constitutional: denies: chills, diaphoresis, fatigue, fever, malaise, sweats, weakness, others EENTM: denies: blurred vision, double vision, ear bleeding, ear discharge, ear drainage, ear pain, ear ringing, eye pain, eye redness, hearing loss, mouth pain, mouth swelling, nasal discharge, nose bleeding, nose congestion, nose pain, photophobia, tearing, throat pain, throat swelling, voice changes, others Respiratory: denies: cough, hemoptysis, orthopnea, SOB at rest, shortness of breath, SOB with excertion, stridor, wheezing, others Cardiovascular: reports: chest pain; denies: dizzy spells, diaphoresis, Dyspnea on exertion, edema, irregular heart beat, left arm pain, lightheadedness, palpitations, PND, syncope, others Gastrointestinal: denies: abdomen distended, abdominal pain, blood streaked bowels, constipated, diarrhea, dysphagia, difficulty swallowing, hematemesis, melena, nausea, poor appetite, poor fluid intake, rectal bleeding, rectal pain, vomiting, others Genitourinary: denies: burning, dysuria, flank pain, frequency, hematuria, incontinence, penile discharge, penile sore, pain, testicle pain, testicle swelling, urgency, others Neurological: denies: dizziness, fainting, headache, left sided numbness, left sided weakness, numbness, paresthesia, pre-existing deficit, right sided numbness, right sided weakness, seizure, speech problems, tingling, tremors, weakness, others Musculoskeletal: denies: back pain, gout, joint pain, joint swelling, muscle pain, muscle stiffness, neck pain, others Integumetry: denies: bruises, change in color, change in hair/nails, dryness, laceration, lesions, lumps, rash, wounds, others Allergic/Immunocompromised: denies: Difficulty Healing, Frequent Infections, Hives, Itching, others Hematologic/Lymphatic: denies: anemia, blood clots, easy bleeding, easy bruising, swollen glands, others Endocrine: denies: excessive hunger, excessive sweating, excessive thirst, excessive urination, flushing, intolerance to cold, intolerance to heat, unexplained weight gain, unexplained weight loss, others Psychiatric: denies: anxiety, bipolar disorder, depression, hopeless, panic disorder, schizophrenia, sleepless, suicidal, others Physical Exam General Appearance: No Apparent Distress, Normal HEENT: Normal ENT Inspection, Pharynx Normal, TMs Normal Neck: Full Range of Motion, Non-Tender, Normal, Normal Inspection Respiratory: Chest Non-Tender, Lungs Clear, No Accessory Muscle Use, No Respiratory Distress, Normal Breath Sounds Cardiovascular: No Edema, No JVD, No Murmur, No Gallop, Normal Peripheral Pulses, Regular Rate/Rhythm Breast Exam: Deferred Gastrointestinal: No Organomegaly, Non Tender, No Pulsatile Mass, Normal Bowel Sounds, Soft Genitalia: Deferred Pelvic: Deferred Rectal: Deferred Extremities: No calf tenderness, Normal capillary refill, Normal inspection, Normal range of motion, Non-tender, No pedal edema Musculoskeletal : Apperance: Normal Neurologic: Alert, head custodian II-XII nml as Tested, No Motor Deficits, Normal Affect, Normal Mood, No Sensory Deficits Cerebellar Function: Normal Reflexes: Normal Skin: Dry, Normal Color, Warm Lymphatic: No Adenopathy Was a procedure done? Was a procedure done?: No CP Differential Dx Differential Diagnosis: Angina, Anxiety / Panic Attack Differential Diagnosis: Angina, Chest Wall Pain, Costochondritis, Esophageal reflux/spasm, Gastritis, Myocardial Infarction X-Ray, Labs, Meds, VS Vital Signs Date Time Temp Pulse Resp B/P (MAP) Pulse Ox O2 Delivery O2 Flow Rate FiO2 11/16/24 22:15 97.9 88 16 156/89 (111) 96 97.9 11/16/24 22:04 81 11/16/24 22:03 73 Lab Test 11/16/24 22:11 Range/Units White Blood Count 8.0 4.4-10.8 10^3/uL Red Blood Count 5.04 4.5-5.90 10^6/uL Hemoglobin 14.0 13.5-17.5 g/dL Hematocrit 42.0 41.0-53.0 % Mean Corpuscular Volume 83.4 80.0-100.0 fL Mean Corpuscular Hemoglobin 27.8 L 28.0-32.0 pg Mean Corpuscular Hemoglobin Concent 33.3 32.0-36.0 g/dL Red Cell Distribution Width 15.7 H 11.8-14.3 % Platelet Count 286 140-450 10^3/uL Mean Platelet Volume 8.7 6.9-10.8 fL Neutrophils (%) (Auto) 63.6 37.0-80.0 % Lymphocytes (%) (Auto) 26.9 10.0-50.0 % Monocytes (%) (Auto) 6.7 0.0-12.0 % Eosinophils (%) (Auto) 1.5 0.0-7.0 % Basophils (%) (Auto) 1.3 0.0-2.0 % Neutrophils # (Auto) 5.1 1.6-8.6 10 ^3/uL Lymphocytes # (Auto) 2.2 0.4-5.4 10 ^3/uL Monocytes # (Auto) 0.5 0-1.3 10 ^3/uL Eosinophils # (Auto) 0.1 0-0.8 10 ^3/uL Basophils # (Auto) 0.1 0-0.2 10 ^3/uL Nucleated Red Blood Cells 0.1 % Prothrombin Time 10.4 9.3-11.8 sec Prothrombin Time INR 0.98 0.9-1.15 Activated Partial Thromboplast Time 27.4 24.5-34.5 SEC Sodium Level 141 136-145 mmol/L Potassium Level 3.2 L 3.5-5.1 mmol/L Chloride Level 108 H 98-107 mmol/L Carbon Dioxide Level 25 20-31 mmol/L Anion Gap 8 5-15 Blood Urea Nitrogen 15 9-23 mg/dL Creatinine 1.13 0.700-1.30 mg/dL Glomerular Filtration Rate Calc 82 >90 mL/min BUN/Creatinine Ratio 13.3 10.0-20.0 Serum Glucose 180 H 74-106 mg/dL Calcium Level 9.4 8.7-10.4 mg/dL Total Bilirubin 0.8 0.2-1.0 mg/dL Aspartate Amino Transferase (AST) 12 L 13-40 U/L Alanine Aminotransferase (ALT) 32 7-40 U/L Alkaline Phosphatase 103 46-116 U/L Troponin I High Sensitivity 801 *H </=54 ng/L Total Protein 7.0 5.7-8.2 g/dL Albumin 4.6 3.2-4.8 g/dL Lipase 55 H 12-53 U/L Time of 1ST Reevaluation: 22:34 Reevaluation 1ST: Unchanged Patient Education/Counseling: Diagnosis, Treatment Family Education/Counseling: No Family Present Departure 1 Departure Time of Disposition: 23:21 Impression: Primary Impression: Acute coronary syndrome Disposition: ADMITTED INPATIENT Admit to: Tele Condition: Guarded Discharged With: Self Comments Chest Pain with Elevated Troponin Chief Complaint: Left-sided chest pain History of Present Illness: 44-year-old male with significant cardiac history including coronary artery disease status post stent placement presents with left-sided chest pain for the past one day. Patient has elevated troponin of 801 on presentation, concerning for acute coronary syndrome. Review of Systems: Limited by acute presentation Positive for chest pain Otherwise unable to obtain due to emergent nature of presentation Lab Results: Troponin: 801 Potassium: 3.2 (Low) CBC: Within normal limits Imaging and Other Relevant Results: Chest X-ray: No acute pathology Medical Decision Making: Summary Statement: 44-year-old male with history of CAD and prior stent presents with chest pain and significantly elevated troponin, concerning for acute coronary syndrome. Problem List: 1. Acute coronary syndrome 2. Hypokalemia Differential Diagnosis: 1. NSTEMI 2. Unstable angina 3. Stent thrombosis 4. Coronary artery disease exacerbation ED Course: Patient presented with chest pain and was found to have elevated troponin. Given history of CAD and stents, initiated ACS protocol with aspirin and heparin drip. Cardiology consultation requested. Assessment and Plan: 1. Acute Coronary Syndrome: - Initiated ACS protocol with aspirin and heparin drip - Admission to cardiology service - Cardiology consultation requested for further management and likely cardiac catheterization 2. Hypokalemia (K 3.2): - Will require careful monitoring and replacement during admission Disposition: Admit to cardiology service Billing Information: ICD-10: I21.9 - Acute myocardial infarction, unspecified ICD-10: E87.6 - Hypokalemia ICD-10: Z95.5 - Presence of coronary angioplasty implant and graft Critical Care Note Critical Care Time?: Yes (35 min-critical care time only) Critical care comment: Active chest pains Total critical care time: Approximately 36 minutes Due to a high probability of clinically significant, life threatening deterioration, the patient required my highest level of preparedness to intervene emergently and I personally spent this critical care time directly and personally managing the patient. This critical care time included obtaining a history; examining the patient; pulse oximetry; ordering and review of studies; arranging urgent treatment with development of a management plan; evaluation of patient's response to treatment; frequent reassessment; and, discussions with other providers. This critical care time was performed to assess and manage the high probability of imminent, life-threatening deterioration that could result in multi-organ failure. It was exclusive of separately billable procedures and treating other patients. Stability Stability form required: No Heart Score Heart Score: Heart Score Response (Comments) Value History Moderate Suspicious 1 EKG Repolarization Disturb 1 Age 45-64 1 Risk Factors >3 or Hx ASHD 2 Troponin Normal limit 0 Total 5 I personally scribed for ROBERTO DHALIWAL MD ([email or web address]) on 11/16/24 at 22:35. Electronically submitted by Kendall George ([facility]). ROBERTO DHALIWAL MD Nov 16, 2024 22:35
--- NOTE | 2024-11-16 22:49 | DVH ---
CHEST RADIOGRAPH Indication: chest pain Technique: Single frontal view of the chest was obtained Comparison: XY CHEST PORTABLE on DOS: 09/29/24, XY CHEST XRAY 1 VIEW on DOS: 08/28/24, XY CHEST XRAY 1 EW on DOS: 05/03/23 FINDINGS: Lines and Tubes: None Lungs: No focal consolidation. Pleura: No effusion. No pneumothorax. Cardiomediastinal contours: Unremarkable Bones: No acute osseous abnormality. IMPRESSION: 1. No acute cardiopulmonary disease. HS:Y
[2024-11-16 22:52] LABS: INR 0.98 (0.9-1.15); Partial Thromboplastin Time 27.4 SEC (24.5-34.5); Prothrombin Time 10.4 sec (9.3-11.8)
[2024-11-16 22:53] LABS: Alanine Aminotransferase 32 U/L (7-40); Albumin 4.6 g/dL (3.2-4.8); Alkaline Phosphatase 103 U/L (46-116); Anion Gap 8 (5-15); BUN/Creatinine Ratio 13.3 (10.0-20.0); Bilirubin, Total 0.8 mg/dL (0.2-1.0); Blood Urea Nitrogen 15 mg/dL (9-23); Calcium 9.4 mg/dL (8.7-10.4); Carbon Dioxide 25 mmol/L (20-31); Sodium 141 mmol/L (136-145)
[2024-11-16 22:58] LABS: Aspartate Aminotransferase 12 U/L (13-40); Chloride 108 mmol/L (98-107); Glucose 180 mg/dL (74-106); Lipase 55 U/L (12-53); Potassium 3.2 mmol/L (3.5-5.1)
--- NOTE | 2024-11-16 23:05 | ECG ---
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
[2024-11-16 23:30] VITALS: PULSE 80; RESP 12; O2SAT 94
[2024-11-16] MEDS: ASPirin 81 mg TAB PO ONE ×2 (23:35)
--- NOTE | 2024-11-16 23:44 | DVHHPRES ---
History of Present Illness Resident Creating Document: FAITH SIMENTAL RESIDENT History of Present Illness Patient is a 44-year-old male with past medical history of [place] s/p PCI ELZBIETA x2 once in 2011 in [place] and 2nd time in November 2022 at [facility], hypertension, dyslipidemia, diabetes, nephrolithiasis, who comes in due to chest pain. A ccording to the patient, he has been experiencing chest pain for the last 1 week which has progressively worsened, and became extreme over the last 2 days. At its most extreme intensity, pain was 10/10, pressure-like, worse with eating moving and lifting heavy objects relieved with nitroglycerin and Tylenol. Patient notes that today while he was moving boxes, he started experiencing 10/10 chest pain again which is what prompted this visit to the hospital. Patient denies similar symptoms in the past, notes that this chest pain was much more severe than prior MIs. On review of systems patient is complaining of fatigue, shortness of breaths, diarrhea, urinary frequency. Patient was noted to have serial troponin 801, 808, 734. EKG showed inferolateral ST depression and left ventricular hypertrophy. Patient was admitted to the hospital started on heparin drip, aspirin, statin, ticagrelor and Cardiology was consulted. Past Medical History [place] s/p PCI ELZBIETA x2 once in 2011 in [place] and 2nd time in November 2022 at [facility], hypertension, dyslipidemia, diabetes, nephrolithiasis Past Surgical History PTCA x2 Past Social History Smoking: Half a pack per day for the last 25 years Alcohol: Denies Drugs: Denies Allergies: Denies Home medications: Amlodipine, aspirin, atorvastatin, metformin, ticagrelor Review of Systems Constitutional: Yes: Malaise; No: Fever, Chills, Sweats, Weakness, Other Eyes: No: Pain, Vision change, Conjunctivae inflammation, Eyelid inflammation, Other, Redness ENT: No: Ear pain, Ear discharge, Nose pain, Nose discharge, Nose congestion, Mouth pain, Mouth swelling, Throat pain, Throat swelling, Other Respiratory: Shortness of breath; No: Cough, Dry, SOB with excertion, Wheezing, Hemoptysis, Pleuritic Pain, Sputum, Wheezing, Other Cardiovascular: No: Chest Pain, Palpitations, Orthopnea, Paroxysmal Noc. Dyspnea, Edema, Lt Headedness, Other Gastrointestinal: Diarrhea; No: Nausea, Vomiting, Abdominal Pain, Constipation, Melena, Hematochezia, Other Genitourinary: No Dysuria; Frequency; No Incontinence, No Hematuria, No Retention, No Other Musculoskeletal: No: other, neck pain, shoulder pain, arm pain, back pain, hand pain, leg pain, foot pain Skin: No: Rash, Lesions, Jaundice, Bruising, Other Neurological: No: Weakness, Numbness, Incoordination, Change in speech, Confusion, Seizures, Other Allergies: Coded Allergies: No Known Drug Allergy (Verified Allergy, Unknown, 08/30/17) Medications Current Medications Medications Dose Ordered Sig/Hilton Route Start Time Stop Time Status Last Admin Dose Admin Heparin Sodium/ Dextrose 250 ml @ 10 mls/hr Q24H IV 11/16/24 23:30 Exam Vital Signs Vital Signs Date Time Temp Pulse Resp B/P (MAP) Pulse Ox O2 Delivery O2 Flow Rate FiO2 11/16/24 22:15 97.9 88 16 156/89 (111) 96 97.9 General Appearance: Alert, Oriented X3, Cooperative, moderate distress HEENT: Atraumatic, PERRLA, EOMI, Other (Dry mucous membranes) Respiratory: Clear to auscultation, Normal air movement Cardiovascular: Regular rate, Normal S1, Normal S2 Abdominal: Normal bowel sounds, Soft, No tenderness Extremities: Other (Trace lower extremity edema) Skin: No significant lesion Neuro: Normal speech, Strength at 5/5 X4 ext, Sensation intact Psych/Mental Status: Mental status NL, Mood NL Labs/Xrays Labs Test 11/16/24 23:28 11/16/24 22:11 Range/Units White Blood Count 8.0 4.4-10.8 10^3/uL Red Blood Count 5.04 4.5-5.90 10^6/uL Hemoglobin 14.0 13.5-17.5 g/dL Hematocrit 42.0 41.0-53.0 % Mean Corpuscular Volume 83.4 80.0-100.0 fL Mean Corpuscular Hemoglobin 27.8 L 28.0-32.0 pg Mean Corpuscular Hemoglobin Concent 33.3 32.0-36.0 g/dL Red Cell Distribution Width 15.7 H 11.8-14.3 % Platelet Count 286 140-450 10^3/uL Mean Platelet Volume 8.7 6.9-10.8 fL Neutrophils (%) (Auto) 63.6 37.0-80.0 % Lymphocytes (%) (Auto) 26.9 10.0-50.0 % Monocytes (%) (Auto) 6.7 0.0-12.0 % Eosinophils (%) (Auto) 1.5 0.0-7.0 % Basophils (%) (Auto) 1.3 0.0-2.0 % Neutrophils # (Auto) 5.1 1.6-8.6 10 ^3/uL Lymphocytes # (Auto) 2.2 0.4-5.4 10 ^3/uL Monocytes # (Auto) 0.5 0-1.3 10 ^3/uL Eosinophils # (Auto) 0.1 0-0.8 10 ^3/uL Basophils # (Auto) 0.1 0-0.2 10 ^3/uL Nucleated Red Blood Cells 0.1 % Prothrombin Time 10.4 9.3-11.8 sec Prothrombin Time INR 0.98 0.9-1.15 Activated Partial Thromboplast Time 27.4 24.5-34.5 SEC Sodium Level 141 136-145 mmol/L Potassium Level 3.2 L 3.5-5.1 mmol/L Chloride Level 108 H 98-107 mmol/L Carbon Dioxide Level 25 20-31 mmol/L Anion Gap 8 5-15 Blood Urea Nitrogen 15 9-23 mg/dL Creatinine 1.13 0.700-1.30 mg/dL Glomerular Filtration Rate Calc 82 >90 mL/min BUN/Creatinine Ratio 13.3 10.0-20.0 Serum Glucose 180 H 74-106 mg/dL Calcium Level 9.4 8.7-10.4 mg/dL Total Bilirubin 0.8 0.2-1.0 mg/dL Aspartate Amino Transferase (AST) 12 L 13-40 U/L Alanine Aminotransferase (ALT) 32 7-40 U/L Alkaline Phosphatase 103 46-116 U/L Total Protein 7.0 5.7-8.2 g/dL Albumin 4.6 3.2-4.8 g/dL Lipase 55 H 12-53 U/L Assessment/Plan Assessment/Plan NSTEMI probably type 1 Coronary artery disease - serial troponins 801, 808, 734 - EKG showing ST depression in the inferior lateral leads - CXR: No acute cardiopulmonary disease - heparin drip - aspirin 362 mg once, resumed home medication aspirin 81 mg daily - resumed home medication ticagrelor Diarrhea possibly due to metformin use versus gastroenteritis Dehydration due to above - stool culture, stool C diff, stool WBCs - monitor COVID-19 infection - on room air - monitor Hypertension Dyslipidemia Type 2 diabetes - atorvastatin 80 mg - resumed home medication amlodipine 10 mg - mild sliding scale insulin Hypokalemia - repleted Obesity class 2 -counseled Goals of care: Full code, discussed for >16 minutes on 11/16/24 Plan discussed with patient Plan discussed with Dr. Vasquez Plan discussed with: Patient, Spouse, Other (RN) Date of Service: Nov 16, 2024 Billing Provider: LINDA VASQUEZ MD Common Visit Codes: [id number] INP/OBS CARE (HIGH) FAITH SIMENTAL RESIDENT Nov 16, 2024 23:44
[2024-11-16] MEDS: HEPARIN SODIUM (PORCINE) 5000 UNITS/ML 1ML VIAL IV ONE ×2 (23:51→23:52)
[2024-11-16] MEDS: HEPARIN DRIP/D5W 100UNITS/ML 250 ML IV SCH (23:53)
[2024-11-17] MEDS ORDERED: DEXTROSE (50%) 50ML SYRG IV PRN (00:30)
[2024-11-17] MEDS: ONDANSETRON HCL 4 MG/2 ML VIAL IV ONE (01:04)
[2024-11-17] MEDS: POTASSIUM CHL 20MEQ/50ML 50 ML IV ONE (01:05)
[2024-11-17 01:49] LABS: Rapid Influenza A Negative (Negative); Rapid Influenza B Negative (Negative)
[2024-11-17 01:52] LABS: COVID19 ANTIGEN SOFIA FIA POSITIVE (NEGATIVE)
[2024-11-17 02:40] VITALS: PULSE 71; RESP 17; O2SAT 94
[2024-11-17 04:45] LABS: Basophils # (auto) 0 10 ^3/uL (0-0.2); Basophils % (auto) 0.2 % (0.0-2.0); Eosinophils # (auto) 0.1 10 ^3/uL (0-0.8); Eosinophils % (auto) 1.7 % (0.0-7.0); Hematocrit 42.6 % (41.0-53.0); Lymphocytes # (auto) 2.1 10 ^3/uL (0.4-5.4); Lymphocytes % (auto) 29.7 % (10.0-50.0); Mean Corpuscular Hemoglobin 27.7 pg (28.0-32.0); Mean Corpuscular Hgb Conc. 32.9 g/dL (32.0-36.0); Mean Corpuscular Volume 84.1 fL (80.0-100.0); Monocytes # (auto) 0.7 10 ^3/uL (0-1.3); Monocytes % (auto) 10.4 % (0.0-12.0); Neutrophils # (auto) 4.1 10 ^3/uL (1.6-8.6); Nucleated Red Blood Cells % 0.1 %; Platelet Count (auto) 279 10^3/uL (140-450); Red Blood Cells 5.07 10^6/uL (4.5-5.90); Red Cell Distribution Width 15.8 % (11.8-14.3); White Blood Cell 7.1 10^3/uL (4.4-10.8)
[2024-11-17 05:04] LABS: Alanine Aminotransferase 34 U/L (7-40); Albumin 4.6 g/dL (3.2-4.8); Alkaline Phosphatase 101 U/L (46-116); Anion Gap 8 (5-15); BUN/Creatinine Ratio 18.9 (10.0-20.0); Blood Urea Nitrogen 18 mg/dL (9-23); Calcium 9.7 mg/dL (8.7-10.4); Carbon Dioxide 25 mmol/L (20-31); Cholesterol 126 mg/dL (< 200); Glucose 102 mg/dL (74-106); LDL Cholesterol 71 mg/dL (< 100); Potassium 3.8 mmol/L (3.5-5.1); Sodium 142 mmol/L (136-145); Total Protein 7.1 g/dL (5.7-8.2)
[2024-11-17 05:33] LABS: Aspartate Aminotransferase 12 U/L (13-40); Chloride 109 mmol/L (98-107); HDL Cholesterol 30 mg/dL (40-59); Triglycerides 194 mg/dL (< 150)
[2024-11-17] MEDS: ATORVASTATIN 20 MG TAB PO ONE (05:58)
[2024-11-17] MEDS: InsuLIN REG 1unit/0.01ml Soln (100units/ml) SC SCH (06:00)
[2024-11-17] MEDS: ACCU-CHEK COMFORT CURVE STRIP VI SCH (06:05)
[2024-11-17 06:29] LABS: INR 1.03 (0.9-1.15); Partial Thromboplastin Time 54.3 SEC (24.5-34.5); Prothrombin Time 10.9 sec (9.3-11.8)
[2024-11-17 07:08] LABS: Urine Bacteria None Seen /hpf (None Seen)
[2024-11-17 07:17] LABS: Urine Blood Negative /uL (Negative); Urine Clarity Clear (Clear); Urine Color Colorless (Yellow); Urine Protein, UAD Negative (Negative); Urine Specific Gravity 1.011 (1.001-1.035); Urine Squamous Epithelial Cell None Seen /hpf (<5); Urine Urobilinogen Normal (Negative); Urine WBC < 1 /HPF (0-3)
[2024-11-17 08:00] VITALS: PULSE 56; RESP 19; O2SAT 96
[2024-11-17 08:00] LABS: Amphetamine Screen, Urine Neg (NEGATIVE); Barbiturate Scree,Urine Neg (NEGATIVE); Benzodiazephine Screen, Urine Neg (NEGATIVE); Cannabinoid Screen, Urine Neg (NEGATIVE); Cocaine Screen, Urine Neg (NEGATIVE); Opiate Scree,Urine Neg (NEGATIVE); Phencyclidine Screen, Urine Neg (NEGATIVE)
[2024-11-17] MEDS: amLODIPine BESYLATE 5 MG TAB PO SCH (10:00)
[2024-11-17] MEDS: ASPirin-EC 81 mg tab PO SCH (10:00)
--- NOTE | 2024-11-17 10:19 | DVHINCON2 ---
Date Seen: Nov 17, 2024 Referring Physician MD [place] resident Reason for Consultation NSTEMI History of Present Illness This is a 44-year-old male patient who presents to the emergency room with chief complaint of chest pain. The patient reports that the chest pain began approximately one week ago. He describes the chest pain as provoked with exertion, intermittent, pressure-like in nature, substernal and nonradiating. Associated symptoms include shortness of breath. The patient reports taking nitroglycerin sublingually at home with relief. He comes to the emergency room for further evaluation. Initial twelve lead electrocardiogram reveals normal sinus rhythm with ST segment depression to inferior leads and nonspecific ST segment changes to lateral leads. Initial troponin level of 801ng/L with flat trend thereafter.Significant past medical history includes coronary artery disease status post PTCA X 2 ELZBIETA (on Brilinta and aspirin), hypertension, dyslipidemia, type 2 diabetes mellitus, tobacco use, and obesity. 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 The patient reports that his last stent was placed on December 14, 2022. Is worth noting that the patient has been to this facility two other times with similar symptoms. The patient was last seen here on 09/29/24 where our cardiology team evaluated the patient and offered him an angiogram. At that time the patient was skeptical about undergoing the procedure and ended up leaving against medical advice. At this time, the patient is now willing to stay for a coronary angiogram if needed. Past Medical History Past medical history reviewed. No other significant than mentioned above. Past Surgical History PTCA X 2 ELZBIETA (2022) Family History: Diabetes mellitus G8 MOTHER G8 FATHER FH: cancer G8 MOTHER Family History Family history reviewed. Social History Patient has a 12.5 pack-year history, smokes approximately half a pack per day Denies any illicit drug use Denies any alcohol use Allergies: Coded Allergies: No Known Drug Allergy (Verified Allergy, Unknown, 08/30/17) Home Meds Active Scripts Tamsulosin Hcl (Tamsulosin Hcl) 0.4 Mg Cap, 1 CAP PO DAILY for 10 Days, #30 CAP 5 Refills Prov:NAHUN MARTINEZ RESIDENT 08/28/24 Reported Medications Clonidine Hydrochloride (Clonidine Hcl) 0.1 Mg Tab, 1 PO DAILY 11/17/24 Ticagrelor Base (BRILINTA) 90 Mg Tab, 1 TAB PO BID 05/03/23 Amlodipine Besylate (Amlodipine Besylate) 10 Mg Tab, 1 TAB PO DAILY 05/03/23 Lisinopril (Lisinopril) 10 Mg Tab, 10 MG PO DAILY for 30 Days, MG 05/16/20 Aspirin (Aspirin Low Dose) 81 Mg Chw, 1 TAB PO DAILY, #30 TAB 3 Refills 05/16/20 Metformin Hydrochloride (Metformin Hcl) 500 Mg Tab, 1 TAB PO BID 05/16/20 Atorvastatin Calcium (ATORVASTATIN CALCIUM) 40 Mg Tab, 1 TAB PO 05/16/20 Home Meds Home medications reviewed. Current Medications Current Medications Medications (Trade) Dose Ordered Sig/Hilton Route PRN Reason Start Time Stop Time Status Last Admin Heparin Sodium/ Dextrose 250 ml @ 10 mls/hr Q24H IV 11/16/24 23:30 11/16/24 23:53 Acetaminophen (Tylenol Tablet) 325 mg Q4HP PRN PO MILD PAIN (1-3 PAIN SCALE) 11/16/24 23:45 Ticagrelor (Brilinta) 90 mg BID PO 11/17/24 10:00 UNV Aspirin (Ecotrin Enteric Coated Tablet) 81 mg DAILY PO 11/17/24 10:00 Amlodipine Besylate (Norvasc Tablet) 10 mg DAILY PO 11/17/24 10:00 Diagnostic Test (Pha) (Accu-Chek Comfort Curve T) 1 strip Q6HR 11/17/24 06:00 11/17/24 06:05 Insulin Human Regular (InsuLIN R) Q6HR SC 11/17/24 06:00 Dextrose 50 ml UD PRN IV Blood Sugar LESS THAN 60 11/17/24 00:30 Morphine Sulfate 2 mg Q4HPRN PRN IV SEVERE PAIN (7-10 PAIN SCALE) 11/17/24 00:30 Atorvastatin Calcium (Lipitor) 80 mg HS PO 11/17/24 22:00 Review of Systems Constitutional: No symptom reported Ears, Nose, & Throat: No symptom reported Eyes: No symptom reported Neurological: No symptoms reported Pulmonary/Respiratory: Shortness of breath Cardiovascular: Chest pain Gastrointestinal: No symptom reported Genitourinary: No symptom reported Musculoskeletal: No symptom reported Skin: No symptom reported Psychiatric: No symptom reported Endocrine: No symptom reported Hematologic/Lymphatic: No symptom reported Vital Signs Vital Signs Date Time Temp Pulse Resp B/P (MAP) Pulse Ox O2 Delivery O2 Flow Rate FiO2 11/17/24 08:00 98.3 56 17 136/51 (79) 92 98.3 11/17/24 08:00 Nasal Cannula* 2 28 Physical Exam General Appearance: Cooperative. Well-developed. Well-nourished. No acute distress. Pulmonary/Respiratory: Clear, bilateral breaths sounds. Cardiovascular/Chest: Regular rate and rhythm. Peripheral Pulses: 2+ Radial (R). 2+ Radial (L). 2+ Pedal (R). 2+ Pedal (L) Abdominal Exam: Normal bowel sounds. Ankle Exam: Negative ankle edema Lower extremities: Negative lower extremity edema Neuro/Mental Status: A/OX4, coherent. Thoughts/Psych: Normal thought pattern. Appropriate mood and affect. Good judgment and insight. Appearance: No acute distress. Skin Exam: Normal inspection. Normal color. Warm and dry. Labs/Diagnostic Data Labs Test 11/17/24 07:08 11/17/24 06:01 11/17/24 04:21 11/17/24 01:22 Range/Units Urine Color Colorless Yellow Urine Clarity Clear Clear Urine pH 6.0 5.0-9.0 Urine Specific [place] 1.011 1.001-1.035 Urine Protein Negative Negative Urine Ketones Negative Negative Urine Blood Negative Negative /uL Urine Nitrite Negative Negative Urine Bilirubin Negative Negative Urine Urobilinogen Normal Negative mg/dL Urine Leukocyte Esterase Negative Negative /uL Urine RBC <1 0 - 3 /hpf Urine Microscopic WBC < 1 0-3 /HPF Urine Squamous Epithelial Cells None seen <5 /hpf Urine Bacteria None seen None Seen /hpf Urine Glucose Normal Normal mg/dL Urine Opiates Screen Neg NEGATIVE Urine Fentanyl Screen Neg NEGATIVE Urine Barbiturates Screen Neg NEGATIVE Urine Phencyclidine Screen Neg NEGATIVE Urine Amphetamines Screen Neg NEGATIVE Urine Benzodiazepines Screen Neg NEGATIVE Urine Cocaine Screen Neg NEGATIVE Urine Cannabinoids Screen Neg NEGATIVE POC Glucose 100 70-106 mg/dl White Blood Count 7.1 4.4-10.8 10^3/uL Red Blood Count 5.07 4.5-5.90 10^6/uL Hemoglobin 14.0 13.5-17.5 g/dL Hematocrit 42.6 41.0-53.0 % Mean Corpuscular Volume 84.1 80.0-100.0 fL Mean Corpuscular Hemoglobin 27.7 L 28.0-32.0 pg Mean Corpuscular Hemoglobin Concent 32.9 32.0-36.0 g/dL Red Cell Distribution Width 15.8 H 11.8-14.3 % Platelet Count 279 140-450 10^3/uL Mean Platelet Volume 8.8 6.9-10.8 fL Neutrophils (%) (Auto) 58.0 37.0-80.0 % Lymphocytes (%) (Auto) 29.7 10.0-50.0 % Monocytes (%) (Auto) 10.4 0.0-12.0 % Eosinophils (%) (Auto) 1.7 0.0-7.0 % Basophils (%) (Auto) 0.2 0.0-2.0 % Neutrophils # (Auto) 4.1 1.6-8.6 10 ^3/uL Lymphocytes # (Auto) 2.1 0.4-5.4 10 ^3/uL Monocytes # (Auto) 0.7 0-1.3 10 ^3/uL Eosinophils # (Auto) 0.1 0-0.8 10 ^3/uL Basophils # (Auto) 0 0-0.2 10 ^3/uL Nucleated Red Blood Cells 0.1 % Prothrombin Time 10.9 9.3-11.8 sec Prothrombin Time INR 1.03 0.9-1.15 Activated Partial Thromboplast Time 54.3 H 24.5-34.5 SEC Sodium Level 142 136-145 mmol/L Potassium Level 3.8 3.5-5.1 mmol/L Chloride Level 109 H 98-107 mmol/L Carbon Dioxide Level 25 20-31 mmol/L Anion Gap 8 5-15 Blood Urea Nitrogen 18 9-23 mg/dL Creatinine 0.95 0.700-1.30 mg/dL Glomerular Filtration Rate Calc 101 >90 mL/min BUN/Creatinine Ratio 18.9 10.0-20.0 Serum Glucose 102 74-106 mg/dL Calcium Level 9.7 8.7-10.4 mg/dL Magnesium Level 2.0 1.6-2.6 mg/dL Total Bilirubin 1.0 0.2-1.0 mg/dL Aspartate Amino Transferase (AST) 12 L 13-40 U/L Alanine Aminotransferase (ALT) 34 7-40 U/L Alkaline Phosphatase 101 46-116 U/L Total Protein 7.1 5.7-8.2 g/dL Albumin 4.6 3.2-4.8 g/dL Triglycerides Level 194 H < 150 mg/dL Cholesterol Level 126 < 200 mg/dL LDL Cholesterol 71 < 100 mg/dL HDL Cholesterol 30 L 40-59 mg/dL Vitamin D 25-Hydroxy 52.4 30.0-100 ng/mL Thyroid Stimulating Hormone (TSH) 1.13 0.55-4.78 uIU/mL Influenza Type A Antigen Negative Negative Influenza Type B Antigen Negative Negative SARS-CoV-2 Antigen (Rapid) Positive *A NEGATIVE Test 11/17/24 01:18 11/16/24 22:11 Range/Units Troponin I High Sensitivity 734 *H </=54 ng/L Hemoglobin A1c 6.0 H <5.7 % A1C B-Type Natriuretic Peptide 64.54 0-100 pg/mL Lipase 55 H 12-53 U/L Assessment NSTEMI, rule out progressive coronary artery disease Coronary artery disease status post PTCA x 2 ELZBIETA (on Brilinta and aspirin) Hypertension Dyslipidemia Covid Type 2 diabetes mellitus Tobacco use Obesity Plan/Recommendation We will continue with the following plan/recommendations (Dr. León): * Transthoracic echocardiogram from 09/29/24 reveals EF 60% * Chest pain protocol * HEART score: 7 points (high score) * LUISA score: 5 points * Continue heparin drip per pharmacy protocol * Resume dual antiplatelet therapy * Aggressive blood pressure control * Lipid-lowering agent * Coronary angiogram on 11/19/24 Patient seen and examined at bedside with Dr. León. Patient may benefit from coronary angiogram with left heart catheterization. The procedure was discussed with the patient in full detail including risks and benefits. Risks include but are not limited to bleeding, contrast-induced nephropathy, stroke, and even . The patient understands and is agreeable to undergo the procedure. We will schedule the patient at soonest availability on 10/30/2024. Thank you for allowing us to care for this patient. Please call with any questions or concerns. Critical care time spent: 40 minutes This medical document was created using an electronic medical record system with voice recognition software and computerized dictation system. Although this document has been carefully reviewed, there might still be some phonetic and typographical errors. Occasional wrong-word or ``sound-alike substitutions may have occurred due to the inherent limitations of voice recognition software. These areas are purely typographical due to imperfections of the software programs and do not reflect any compromise in the patient's medical care. Please read the chart carefully and recognize, using context, where these substitutions have occurred. Plan discussed with: Patient, Spouse NYHA Physical activity limitations: NA Date of Service: Nov 17, 2024 Billing Provider: JOSE E KEARNEY Cardiology Common Codes: [id number] INP/OBS CARE (High) Cardiology Consultation Codes: [id number] CONSULT <45MIN JOSE E KEARNEY Nov 17, 2024 10:19
[2024-11-17 11:29] LABS: INR 0.99 (0.9-1.15); Partial Thromboplastin Time 35.9 SEC (24.5-34.5); Prothrombin Time 10.5 sec (9.3-11.8)
[2024-11-17] MEDS: TICAGRELOR 90 MG TAB PO SCH (11:40)
--- NOTE | 2024-11-17 11:49 | CONS ---
Pharmacy Clinical Information: HEPARIN PER PHARMACY PTT RESULT 11/17/24@1032 = 35.9 OLD RATE @10ML/HR. NO BOLUS. INCREASE 200U (2ML/HR) TO NEW RATE @12ML/HR. NEXT PTT SCHEDULE 11/17/24@1800 COMMUNICATED WITH JANIA AGUAYO PHARMACIST Nov 17, 2024 11:49
[2024-11-17] MEDS: HEPARIN DRIP/D5W 100UNITS/ML 250 ML IV SCH ×2 (11:52→19:38)
[2024-11-17] MEDS ORDERED: CLON0.1T PO (12:34)
--- NOTE | 2024-11-17 12:36 | DVHPNRES ---
Progress Note Date Seen: Nov 17, 2024 Resident Creating Document: KELLI JACKSON RESIDENT Has the PT tested + for MRSA If YES, has PT been informed?: No Medical Necessity Reason Pt with a Central, PICC or Fol: No Medical Necessity Reason History of Present Illness Patient is a 44-year-old male with past medical history of MO s/p PCI ELZBIETA x2 once in 2011 in [place] and 2nd time in November 2022 at [facility], hypertension, dyslipidemia, diabetes, nephrolithiasis, who comes in due to chest pain. According to the patient, he has been experiencing chest pain for the last 1 week which has progressively worsened, and became extreme over the last 2 days. At its most extreme intensity, pain was 10/10, pressure-like, worse with eating moving and lifting heavy objects relieved with nitroglycerin and Tylenol. Patient notes that today while he was moving boxes, he started experiencing 10/10 chest pain again which is what prompted this visit to the hospital. Patient denies similar symptoms in the past, notes that this chest pain was much more severe than prior MIs. On review of systems patient is complaining of fatigue, shortness of breaths, diarrhea, urinary frequency. Patient was noted to have serial troponin 801, 808, 734. EKG showed inferolateral ST depression and left ventricular hypertrophy. Patient was admitted to the hospital started on heparin drip, aspirin, statin, ticagrelor and Cardiology was consulted. Past Medical History: MO s/p PCI ELZBIETA x2 once in 2011 in [place] and 2nd time in November 2022 at [facility], hypertension, dyslipidemia, diabetes, nephrolithiasis Past Surgical History: PTCA x2 Past Social History:Smoking: Half a pack per day for the last 25 years, Denies alcohol, drugs and allergies Home medications: Amlodipine, aspirin, atorvastatin, metformin, ticagrelor PN: 11/17/2024 Patient seen and examined s sitting in a chair today patient did admits to having chest pain at home that did not improve after taking 3 nitroglycerin. And of note patient's troponins are elevated and also his [address] depression in the inferior leads and also evidence of left ventricular hypertrophy. Currently patient does not have pain chest pain active chest pain his troponin levels are also going down. Cardiology consulted and pending the assessment of the patient and for intervention. COVID testing came back positive however patient is not actively and shortness of breaths the denied any symptoms of like we will go changes in his stays or smell therefore what patient and treat accordingly. Subjective Review of Systems Constitutional: Denies fever no chills no feeling of malaise HEENT: Denies headache, ear pain, ear discharges, conjunctivitis, nasal discharge throat pain Cardiovascular: Denies chest pain, palpitation, orthopnea, PND, or pedal edema Respiratory: Denies shortness of breath, cough cough, sputum production, hemoptysis, GI: Denies abdominal pain, nausea, vomiting, diarrhea, hematemesis, hematochezia, : Denies frequency, urgency, hematuria, Endocrine: Denies unintentional weight gain or weight loss, feeling of hot flashes, Francesco: Denies easy bruising, bleeding disorders, epistaxis Musculoskeletal: Denies joint pains, muscle aches Psych: No evidence of depression, mamta, suicidal ideation Objective vital signs Vital Sign Date Time Temp Pulse Resp B/P (MAP) Pulse Ox O2 Delivery O2 Flow Rate FiO2 11/17/24 10:00 157/92 11/17/24 10:00 64 13 93 11/17/24 08:00 98.3 98.3 11/17/24 08:00 Nasal Cannula* 2 28 Total Intake and Output 11/16/24 11/16/24 11/17/24 15:00 23:00 07:00 Intake Total 120 ml Balance 120 ml medications Current Medications Medications Dose Ordered Sig/Hilton Route Start Time Stop Time Status Last Admin Dose Admin Acetaminophen 325 mg Q4HP PRN PO 11/16/24 23:45 Ticagrelor 90 mg BID PO 11/17/24 10:00 11/17/24 11:40 90 MG Aspirin 81 mg DAILY PO 11/17/24 10:00 11/17/24 10:00 81 MG Amlodipine Besylate 10 mg DAILY PO 11/17/24 10:00 11/17/24 10:00 10 MG Diagnostic Test (Pha) 1 strip Q6HR 11/17/24 06:00 11/17/24 06:05 1 STRIP Insulin Human Regular Q6HR SC 11/17/24 06:00 Dextrose 50 ml UD PRN IV 11/17/24 00:30 Morphine Sulfate 2 mg Q4HPRN PRN IV 11/17/24 00:30 Atorvastatin Calcium 80 mg HS PO 11/17/24 22:00 Heparin Sodium/ Dextrose 250 ml @ 12 mls/hr [id number] IV 11/17/24 11:45 11/17/24 11:52 12 MLS/HR Examination General Appearance: Alert, Oriented X3, Cooperative, No acute distress HEENT: Atraumatic, PERRLA, EOMI, Mucous membrane moist/pink Respiratory: Clear to auscultation, Normal air movement Cardiovascular: Regular rate, Normal S1, Normal S2, No murmurs, no chest wall tenderness Abdominal: NO distention, no tenderness, bowel sounds present, no scars noted Extremities: No clubbing, No cyanosis, No edema, Normal pulses, No tenderness/swelling Skin: No rashes, No breakdown, No significant lesion Neuro: Normal gait, Normal speech, Strength at 5/5 X4 ext, Normal tone, Sensation intact, Cranial nerves 3-12 NL, Reflexes 2+ Psych/Mental Status: Mental status NL, Mood NL laboratory and microbiology Laboratory Tests 11/17/24 04:21 Test 11/17/24 04:21 Range/Units Serum Glucose 102 74-106 mg/dL Labs and/or images reviewed: Labs reviewed by me, Image(s) reviewed by me Problem List/Assessment/Plan Problem List/Assessment/Plan Assessment NSTEMI probably type 1 Coronary artery disease --> Serial troponin levels 801, 808, 734 trending down --> EKG showing ST depression in the inferior lateral leads -->CXR: No acute cardiopulmonary disease --> heparin drip --> aspirin 362 mg once, resumed home medication aspirin 81 mg daily --> resumed home medication ticagrelor --> cardiology evaluation pending History of CAD s/p stent x2 --> Continue aspirin 81 mg daily --> resumed home medication ticagrelor COVID-19 infection --> Monitor closely --> on room air --> monitor Diarrhea possibly due to metformin use versus gastroenteritis Dehydration due to above - stool culture, stool C diff, stool WBCs - monitor Hypertensive heart disease --> Continue amlodipine 10mg Dyslipidemia --> atorvastatin 80 mg Type 2 diabetes - mild sliding scale insulin Hypokalemia - repleted Obesity class 2 -counseled Tobacco use disorder -counseled on cessation for 16 minutes Goal of care discussed for 20 minutes; full code Case and plan discussed with Dr. Nicholas Plan discussed with: Patient, Spouse, Other (Nurse) Addendum Addendum Addendum I was physically present for the [place] portions of the service provided to patient by THE RESIDENT. I have reviewed the documentation, discussed the case with resident and agree with the resident's documentation except as noted. Also the patient's clinical case was discussed with the patient's nurse. This medical document was created using an electronic medical record system with computerized dictation system. Although this document has been carefully reviewed, there might still be some phonetic and typographical errors. These areas are purely typographical due to imperfections of the software programs, and do not reflect any compromise in the patient's medical care. Late signature. Date of Service: Nov 17, 2024 Billing Provider: LORY NICHOLAS MD Common Visit Codes: [id number] INP/OBS CARE(HIGH) Secondary Visit Codes: [id number] CHNG SMOKING >10MIN (16 minutes), 97254- ADVANCED CARE PLAN 30 MINUTES (20 minutes) KELLI JACKSON RESIDENT Nov 17, 2024 12:36 LORY NICHOLAS MD Nov 19, 2024 10:33
[2024-11-17] MEDS: hydrALAZINE HCL 20 MG/ML VL IV PRN (15:53)
[2024-11-17] MEDS: MORPHINE SULFATE 4 MG/ML SYR/VIAL IV PRN (16:37)
[2024-11-17 18:00] VITALS: BP 149/92; PULSE 76; RESP 18; TEMP 98.3; O2SAT 100
[2024-11-17 18:26] LABS: INR 1.02 (0.9-1.15); Partial Thromboplastin Time 35.2 SEC (24.5-34.5); Prothrombin Time 10.8 sec (9.3-11.8)
--- NOTE | 2024-11-17 19:09 | DVHINCON2 ---
Date Seen: Nov 17, 2024 Referring Physician MD Bryan resident Reason for Consultation NSTEMI History of Present Illness This is a 44-year-old male with a past medical history of coronary artery disease status post PTCA X 2 ELZBIETA (on Brilinta and aspirin), hypertension, dyslipidemia, type 2 diabetes mellitus, tobacco use, and obesity who presents to the emergency room with chief complaint of chest pain. The patient reports that the chest pain began approximately one week ago. He describes the chest pain as provoked with exertion, intermittent, pressure-like in nature, substernal and nonradiating. Associated symptoms include shortness of breath. The patient reports taking nitroglycerin sublingually at home with relief. He comes to the emergency room for further evaluation. Initial twelve lead electrocardiogram reveals normal sinus rhythm with ST segment depression to inferior leads and nonspecific ST segment changes to lateral leads. Initial troponin level of 801ng/L with flat trend thereafter. Chest x-ray showed NAD. The patient does not follow up with a [facility] executive director in the outpatient setting. The patient reports that his last stent was placed on December 14, 2022. Is worth noting that the patient has been to this facility two other times with similar symptoms. The patient was last seen here on 09/29/24 where our cardiology team evaluated the patient and offered him an angiogram. At that time the patient was skeptical about underg oing the procedure and ended up leaving against medical advice. At this time, the patient is now willing to stay for a coronary angiogram if needed.Patient was admitted to the hospital. I am asked to consult on this patient. Family History: Diabetes mellitus G8 MOTHER G8 FATHER FH: cancer G8 MOTHER Allergies: Coded Allergies: No Known Drug Allergy (Verified Allergy, Unknown, 08/30/17) Home Meds Active Scripts Tamsulosin Hcl (Tamsulosin Hcl) 0.4 Mg Cap, 1 CAP PO DAILY for 10 Days, #30 CAP 5 Refills Prov:NAHUN MARTINEZ RESIDENT 08/28/24 Reported Medications Clonidine Hydrochloride (Clonidine Hcl) 0.1 Mg Tab, 1 PO DAILY 11/17/24 Ticagrelor Base (BRILINTA) 90 Mg Tab, 1 TAB PO BID 05/03/23 Amlodipine Besylate (Amlodipine Besylate) 10 Mg Tab, 1 TAB PO DAILY 05/03/23 Lisinopril (Lisinopril) 10 Mg Tab, 10 MG PO DAILY for 30 Days, MG 05/16/20 Aspirin (Aspirin Low Dose) 81 Mg Chw, 1 TAB PO DAILY, #30 TAB 3 Refills 05/16/20 Metformin Hydrochloride (Metformin Hcl) 500 Mg Tab, 1 TAB PO BID 05/16/20 Atorvastatin Calcium (ATORVASTATIN CALCIUM) 40 Mg Tab, 1 TAB PO 05/16/20 Current Medications Current Medications Medications (Trade) Dose Ordered Sig/Hilton Route PRN Reason Start Time Stop Time Status Last Admin Heparin Sodium/ Dextrose 250 ml @ 10 mls/hr Q24H IV 11/16/24 23:30 11/17/24 11:39 DC 11/16/24 23:53 Acetaminophen (Tylenol Tablet) 325 mg Q4HP PRN PO MILD PAIN (1-3 PAIN SCALE) 11/16/24 23:45 Ticagrelor (Brilinta) 90 mg BID PO 11/17/24 10:00 11/17/24 11:40 Aspirin (Ecotrin Enteric Coated Tablet) 81 mg DAILY PO 11/17/24 10:00 11/17/24 10:00 Amlodipine Besylate (Norvasc Tablet) 10 mg DAILY PO 11/17/24 10:00 11/17/24 10:00 Diagnostic Test (Pha) (Accu-Chek Comfort Curve T) 1 strip Q6HR 11/17/24 06:00 11/17/24 12:00 Insulin Human Regular (InsuLIN R) Q6HR SC 11/17/24 06:00 Dextrose 50 ml UD PRN IV Blood Sugar LESS THAN 60 11/17/24 00:30 Morphine Sulfate 2 mg Q4HPRN PRN IV SEVERE PAIN (7-10 PAIN SCALE) 11/17/24 00:30 Atorvastatin Calcium (Lipitor) 80 mg HS PO 11/17/24 22:00 Heparin Sodium/ Dextrose 250 ml @ 12 mls/hr [id number] IV 11/17/24 11:45 11/17/24 11:52 Clonidine HCl (Catapres Tablet) 0.1 mg DAILY PO 11/18/24 10:00 Review of Systems Constitutional: No symptom reported Ears, Nose, & Throat: No symptom reported Eyes: No symptom reported Neurological: No symptoms reported Pulmonary/Respiratory: Shortness of breath Cardiovascular: Chest pain Gastrointestinal: No symptom reported Genitourinary: No symptom reported Musculoskeletal: No symptom reported Skin: No symptom reported Psychiatric: No symptom reported Endocrine: No symptom reported Hematologic/Lymphatic: No symptom reported Vital Signs Vital Signs Date Time Temp Pulse Resp B/P (MAP) Pulse Ox O2 Delivery O2 Flow Rate FiO2 11/17/24 12:00 97.1 66 15 159/62 (94) 98 97.1 11/17/24 08:00 Nasal Cannula* 2 28 Physical Exam GENERAL: Alert and oriented x 3. No acute distress. EYES: PERRL, EOMI. Anicteric. HENT: Moist mucous membranes. LUNGS: Clear to auscultation bilaterally. CARDIOVASCULAR: Regular rate and rhythm. ABDOMEN: Soft, nontender and nondistended. EXTREMITIES: No edema. NEUROLOGIC: No focal neurological deficits. SKIN: Warm, dry. Labs/Diagnostic Data Labs Test 11/17/24 10:32 11/17/24 07:08 11/17/24 06:01 11/17/24 04:21 Range/Units Prothrombin Time 10.5 9.3-11.8 sec Prothrombin Time INR 0.99 0.9-1.15 Activated Partial Thromboplast Time 35.9 H 24.5-34.5 SEC Urine Color Colorless Yellow Urine Clarity Clear Clear Urine pH 6.0 5.0-9.0 Urine Specific [place] 1.011 1.001-1.035 Urine Protein Negative Negative Urine Ketones Negative Negative Urine Blood Negative Negative /uL Urine Nitrite Negative Negative Urine Bilirubin Negative Negative Urine Urobilinogen Normal Negative mg/dL Urine Leukocyte Esterase Negative Negative /uL Urine RBC <1 0 - 3 /hpf Urine Microscopic WBC < 1 0-3 /HPF Urine Squamous Epithelial Cells None seen <5 /hpf Urine Bacteria None seen None Seen /hpf Urine Glucose Normal Normal mg/dL Urine Opiates Screen Neg NEGATIVE Urine Fentanyl Screen Neg NEGATIVE Urine Barbiturates Screen Neg NEGATIVE Urine Phencyclidine Screen Neg NEGATIVE Urine Amphetamines Screen Neg NEGATIVE Urine Benzodiazepines Screen Neg NEGATIVE Urine Cocaine Screen Neg NEGATIVE Urine Cannabinoids Screen Neg NEGATIVE POC Glucose 100 70-106 mg/dl White Blood Count 7.1 4.4-10.8 10^3/uL Red Blood Count 5.07 4.5-5.90 10^6/uL Hemoglobin 14.0 13.5-17.5 g/dL Hematocrit 42.6 41.0-53.0 % Mean Corpuscular Volume 84.1 80.0-100.0 fL Mean Corpuscular Hemoglobin 27.7 L 28.0-32.0 pg Mean Corpuscular Hemoglobin Concent 32.9 32.0-36.0 g/dL Red Cell Distribution Width 15.8 H 11.8-14.3 % Platelet Count 279 140-450 10^3/uL Mean Platelet Volume 8.8 6.9-10.8 fL Neutrophils (%) (Auto) 58.0 37.0-80.0 % Lymphocytes (%) (Auto) 29.7 10.0-50.0 % Monocytes (%) (Auto) 10.4 0.0-12.0 % Eosinophils (%) (Auto) 1.7 0.0-7.0 % Basophils (%) (Auto) 0.2 0.0-2.0 % Neutrophils # (Auto) 4.1 1.6-8.6 10 ^3/uL Lymphocytes # (Auto) 2.1 0.4-5.4 10 ^3/uL Monocytes # (Auto) 0.7 0-1.3 10 ^3/uL Eosinophils # (Auto) 0.1 0-0.8 10 ^3/uL Basophils # (Auto) 0 0-0.2 10 ^3/uL Nucleated Red Blood Cells 0.1 % Sodium Level 142 136-145 mmol/L Potassium Level 3.8 3.5-5.1 mmol/L Chloride Level 109 H 98-107 mmol/L Carbon Dioxide Level 25 20-31 mmol/L Anion Gap 8 5-15 Blood Urea Nitrogen 18 9-23 mg/dL Creatinine 0.95 0.700-1.30 mg/dL Glomerular Filtration Rate Calc 101 >90 mL/min BUN/Creatinine Ratio 18.9 10.0-20.0 Serum Glucose 102 74-106 mg/dL Calcium Level 9.7 8.7-10.4 mg/dL Magnesium Level 2.0 1.6-2.6 mg/dL Total Bilirubin 1.0 0.2-1.0 mg/dL Aspartate Amino Transferase (AST) 12 L 13-40 U/L Alanine Aminotransferase (ALT) 34 7-40 U/L Alkaline Phosphatase 101 46-116 U/L Total Protein 7.1 5.7-8.2 g/dL Albumin 4.6 3.2-4.8 g/dL Triglycerides Level 194 H < 150 mg/dL Cholesterol Level 126 < 200 mg/dL LDL Cholesterol 71 < 100 mg/dL HDL Cholesterol 30 L 40-59 mg/dL Vitamin D 25-Hydroxy 52.4 30.0-100 ng/mL Thyroid Stimulating Hormone (TSH) 1.13 0.55-4.78 uIU/mL Test 11/17/24 01:22 11/17/24 01:18 11/16/24 22:11 Range/Units Influenza Type A Antigen Negative Negative Influenza Type B Antigen Negative Negative SARS-CoV-2 Antigen (Rapid) Positive *A NEGATIVE Troponin I High Sensitivity 734 *H </=54 ng/L Hemoglobin A1c 6.0 H <5.7 % A1C B-Type Natriuretic Peptide 64.54 0-100 pg/mL Lipase 55 H 12-53 U/L Assessment NSTEMI, rule out progressive coronary artery disease. Coronary artery disease status post PTCA x 2 ELZBIETA (on Brilinta and aspirin). Hypertension. Dyslipidemia. Covid. Type 2 diabetes mellitus. Tobacco use. Obesity. Plan/Recommendation I agree with your ongoing assessment and care of plan. Patient has been seen by Cher Zhou NP on my behalf, her and I discussed the plan with the patient. Transthoracic echocardiogram from 09/29/24 reveals EF 60%. Chest pain protocol. HEART score: 7 points (high score). LUISA score: 5 points. Continue heparin drip per pharmacy protocol. Resume dual antiplatelet therapy. Aggressive blood pressure control. Lipid-lowering agent. Coronary angiogram. Additional plan as per the hospital course. Plan discussed with: Patient NYHA Physical activity limitations: NA Date of Service: Nov 17, 2024 Billing Provider: LILO CONLEY MD Cardiology Common Codes: [id number] INP/OBS CARE (High) Cardiology Consultation Codes: [id number] CONSULT <45MIN LILO CONLEY MD Nov 17, 2024 14:07
--- NOTE | 2024-11-17 19:18 | CONS ---
Pharmacy Clinical Information: INCREASE HEPARIN DRIP RATE TO 1400 UNITS/HR PER APTT OF 35.2 NEXT APTT DRAW SCHEDULED ON 11/18 @ 0115-PER RX PROTOCOL NESTOR GLASERFIRMED AND READ BACK Emma Rey PHARMACIST Nov 17, 2024 19:18
--- NOTE | 2024-11-17 19:30 | DVHSR ---
APPROVED REPORT EXAM: LIMITED Two-dimensional and M-mode echocardiogram with Doppler and color Doppler. Blood Pressure: 188/116 mmHg INDICATION Chest Pain RISK FACTORS Height: 6'2", Weight: 280 DIMENSIONS LVDd5.8 (3.8-5.7cm)LA (2D)4.4 (1.9-4.0cm)Aortic Root (2.0-3.7cm) LVDs5.3 (2.5-4.0cm)LA (MM) (1.9-4.0cm)Aortic Cusp Exc (1.5-2.0cm) EF (%) 43.0 (55-70%)Rt. Atrium4.5 (1.9-4.0cm)Asc. Aorta cm IVSd1.6 (0.7-1.1cm)RV (D) (1.8-2.4cm) PWd1.1 (0.7-1.1cm) Mitral Valve MitralMitral Stenosis E/A ratio0.02D MVAcm2 Other Information Quality : Technically LimitedRhythm : Technically limited study due to body habitus, stat echo. Conclusion MODERATE DEGREE LVH AND MODERATE DEGREE LV DIASTOLIC DYSFUNCTION LV EF IS 45% BASAL POSTERIOR WALL IS HYPOKINETIC NORMAL VALVES NO EFFUSION SLIGHTLY DILATED LA SLIGHTLY DILATED RV AND RA
[2024-11-17 20:00] VITALS: PULSE 80; PULSE 92; RESP 17; O2SAT 99
[2024-11-17 21:00] VITALS: BP 194/104; PULSE 80; RESP 17; TEMP 97.1; O2SAT 99
[2024-11-17] MEDS: NITROGLYCERIN 0.4 MG SL TAB SL PRN (22:03)
--- NOTE | 2024-11-17 22:24 | ECG ---
[facility] Test Date: 2024-11-17 Test Time: 22:23:11 Pat Name: RONALDO FABIAN Department: Room: 0238T A Gender: M World Language Teacher: MARINO : 1980 Requested By: ROBERTO DHALIWAL Order Number: [id number] Reading MD: Cisco Krishnamurthy Measurements Intervals [place] Rate: 78 P: 29 VT: 147 QRS: 14 QRSD: 112 T: -54 QT: 412 QTc: 470 Interpretive Statements Sinus rhythm Probable left atrial enlargement Left ventricular hypertrophy Abnormal T, consider ischemia, inferior leads Anterior ST elevation, probably due to LVH Electronically Signed On 11-18-2024 20:13:08 PDT by Cisco Krishnamurthy Please click the below link to view image of tracing.
[2024-11-17] MEDS: ATORVASTATIN 20 MG TAB PO SCH (23:03)
[2024-11-18] VITALS (8 sets, daily range): BP systolic 156–165; BP diastolic 86–96; PULSE 63–88; RESP 17–20; TEMP 97–98.6; O2SAT 94–99
[2024-11-18 01:52] LABS: Partial Thromboplastin Time 44.1 SEC (24.5-34.5); Prothrombin Time 10.6 sec (9.3-11.8)
[2024-11-18] MEDS: HEPARIN DRIP/D5W 100UNITS/ML 250 ML IV SCH ×2 (02:23→18:41)
[2024-11-18] MEDS: cloNIDine HCL 0.1 MG TAB PO SCH (08:13)
--- NOTE | 2024-11-18 09:12 | ECG ---
[facility] Test Date: 2024-11-16 Test Time: 22:04:45 Pat Name: RONALDO FABIAN Department: ER Room: 0238T A Gender: M Food Service Attendant: NIRALI : 1980 Requested By: ROBERTO DHALIWAL Order Number: [id number] Reading MD: Cisco Krishnamurthy Measurements Intervals [place] Rate: 81 P: 51 OK: 152 QRS: 25 QRSD: 114 T: -72 QT: 374 QTc: 434 Interpretive Statements Sinus rhythm Probable left atrial enlargement LVH with IVCD and secondary repol abnrm Inferior infarct, age indeterminate Anterior ST elevation, probably due to LVH Electronically Signed On 11-18-2024 20:32:37 PDT by Cisco Krishnamurthy Please click the below link to view image of tracing.
[2024-11-18 11:11] LABS: Basophils # (auto) 0.1 10 ^3/uL (0-0.2); Basophils % (auto) 1.4 % (0.0-2.0); Eosinophils # (auto) 0.1 10 ^3/uL (0-0.8); Hematocrit 43.3 % (41.0-53.0); Hemoglobin 14.3 g/dL (13.5-17.5); Lymphocytes # (auto) 1.6 10 ^3/uL (0.4-5.4); Lymphocytes % (auto) 22.3 % (10.0-50.0); Mean Corpuscular Hemoglobin 27.7 pg (28.0-32.0); Monocytes # (auto) 0.5 10 ^3/uL (0-1.3); Monocytes % (auto) 6.5 % (0.0-12.0); Neutrophils % (auto) 67.8 % (37.0-80.0); Platelet Count (auto) 285 10^3/uL (140-450); Red Blood Cells 5.16 10^6/uL (4.5-5.90); Red Cell Distribution Width 15.9 % (11.8-14.3); White Blood Cell 7.3 10^3/uL (4.4-10.8)
[2024-11-18 11:20] LABS: INR 0.99 (0.9-1.15); Partial Thromboplastin Time 55.1 SEC (24.5-34.5); Prothrombin Time 10.5 sec (9.3-11.8)
--- NOTE | 2024-11-18 12:57 | DVHPN2 ---
Subjective Continues to complain of chest pain Reviewed: Care Plan, H&P, Labs, Medications, Previous Orders, Radiology, Other (Consultation) Changes from previous H/P or p: No Changes Objective Vitals Vital Signs Date Time Temp Pulse Resp B/P (MAP) Pulse Ox O2 Delivery O2 Flow Rate FiO2 11/18/24 09:00 97.8 76 18 161/92 (115) 97 97.8 11/18/24 08:00 Room Air* 0 21 Intake/Output Intake and Output 11/18/24 07:00 Intake Total 316 ml Balance 316 ml Intake Oral 240 ml IV Total 76 ml # Bowel Movements 2 General Appearance: Alert, Oriented X3, Cooperative, No acute distress HEENT: Atraumatic Lungs: Clear to auscultation, Normal air movement Cardiovascular: Regular rate, Normal S1, Normal S2, No murmurs Abdomen: Normal bowel sounds, Soft, No tenderness Neuro: Normal speech, Cranial nerves 3-12 NL Psych/Mental Status: Mental status NL, Mood NL Medications Current Medications Medications Dose Ordered Sig/Hilton Route Start Time Stop Time Status Last Admin Dose Admin Acetaminophen 325 mg Q4HP PRN PO 11/16/24 23:45 Ticagrelor 90 mg BID PO 11/17/24 10:00 11/17/24 23:03 90 MG Aspirin 81 mg DAILY PO 11/17/24 10:00 11/17/24 10:00 81 MG Amlodipine Besylate 10 mg DAILY PO 11/17/24 10:00 11/18/24 08:13 10 MG Diagnostic Test (Pha) 1 strip Q6HR 11/17/24 06:00 11/18/24 11:38 1 STRIP Insulin Human Regular Q6HR SC 11/17/24 06:00 11/18/24 11:37 4 UNITS Dextrose 50 ml UD PRN IV 11/17/24 00:30 Morphine Sulfate 2 mg Q4HPRN PRN IV 11/17/24 00:30 11/17/24 20:27 2 MG Atorvastatin Calcium 80 mg HS PO 11/17/24 22:00 11/17/24 23:03 80 MG Clonidine HCl 0.1 mg DAILY PO 11/18/24 10:00 11/18/24 08:13 0.1 MG Hydralazine HCl 10 mg Q4HPRN PRN IV 11/17/24 14:45 11/17/24 20:02 10 MG Nitroglycerin 0.4 mg Q5MINP PRN SL 11/17/24 21:45 11/17/24 22:03 0.4 MG Heparin Sodium/ Dextrose 250 ml @ 16 mls/hr [id number] IV 11/18/24 02:15 11/18/24 02:23 16 MLS/HR Laboratory Results Laboratory Tests 11/17/24 04:21 11/18/24 10:23 Coagulation Test 11/17/24 17:52 11/18/24 01:16 11/18/24 10:23 Prothrombin Time 10.8 sec (9.3-11.8) 10.6 sec (9.3-11.8) 10.5 sec (9.3-11.8) Prothrombin Time INR 1.02 (0.9-1.15) 1.00 (0.9-1.15) 0.99 (0.9-1.15) Activated Partial Thromboplast Time 35.2 SEC (24.5-34.5) H 44.1 SEC (24.5-34.5) H 55.1 SEC (24.5-34.5) H Urinalysis Test 11/17/24 07:08 Urine Color Colorless (Yellow) Urine Clarity Clear (Clear) Urine pH 6.0 (5.0-9.0) Urine Specific [place] 1.011 (1.001-1.035) Urine Protein Negative (Negative) Urine Ketones Negative (Negative) Urine Blood Negative /uL (Negative) Urine Nitrite Negative (Negative) Urine Bilirubin Negative (Negative) Urine Urobilinogen Normal mg/dL (Negative) Urine Leukocyte Esterase Negative /uL (Negative) Urine RBC <1 /hpf (0 - 3) Urine Microscopic WBC < 1 /HPF (0-3) Urine Squamous Epithelial Cells None seen /hpf (<5) Urine Bacteria None seen /hpf (None Seen) Urine Glucose Normal mg/dL (Normal) Microbiology Microbiology Date/Time Source Procedure Growth Status 11/17/24 04:30 Nose MRSA Screen - Final Complete Labs and/or images reviewed: Labs reviewed by me, Image(s) reviewed by me Assessment/Plan Assessment/Plan Covering: Chest pain due to ACS/NSTEMI in the setting of coronary artery disease status post stenting Hypertensive heart disease without heart failure Diabetes mellitus type 2 Hypokalemia Dyslipidemia COVID-19 infection; saturating well on room air Tobacco use disorder Morbid obesity Continue heparin infusion Telemetry Continue pain management as indicated Cardiology is following Keep NPO after midnight for cardiac catheterization tomorrow Continue aspirin and statin Continue insulin therapy with hypoglycemia protocol Replace electrolytes as indicated Continue antihypertensive medications and adjust accordingly Counseled on cessation of tobacco use No treatment for COVID-19 infection as the patient is saturating well on room air; to continue isolation Counseled the patient importance of adopting healthy lifestyle with diet and exercise in order to lose weight Continue monitoring Late Entry. This medical document was created using an electronic medical record system with computerized dictation system. Although this document has been carefully reviewed, there might still be some phonetic and typographical errors. These areas are purely typographical due to imperfections of the software programs, and do not reflect any compromise in the patient's medical care. Plan discussed with: Patient, Spouse, Other (Nurse) My Orders Orders - LORY NICHOLAS MD Procedure Category Date Status Time Hydralazine Injection PHA 11/17/24 In Process (Apresoline Inject 14:45 Date of Service: Nov 18, 2024 Billing Provider: LORY NICHOLAS MD Common Visit Codes: [id number] INP/OBS CARE(HIGH) LORY NICHOLAS MD Nov 18, 2024 12:57
[2024-11-18 18:19] LABS: INR 0.98 (0.9-1.15); Partial Thromboplastin Time 42.4 SEC (24.5-34.5); Prothrombin Time 10.4 sec (9.3-11.8)
--- NOTE | 2024-11-18 23:43 | DVHPN2 ---
Progress Note - Dictate Date Seen: Nov 18, 2024 Has the PT tested + for MRSA If YES, has PT been informed?: No Medical Necessity Reason Pt with a Central, PICC or Fol: No Subjective Patient was seen and evaluated in follow up. Patient is complaining of chest discomfort. Ptient is on heparin drip. BS are WNL. Echocardiogram shows an EF of 45%. Telemetry reviewed. vital signs Vital Sign Date Time Temp Pulse Resp B/P (MAP) Pulse Ox O2 Delivery O2 Flow Rate FiO2 11/18/24 17:00 98.0 87 18 162/87 (112) 97 98.0 11/18/24 08:00 Room Air* 0 21 Total Intake and Output 11/17/24 11/17/24 11/18/24 15:00 23:00 07:00 Intake Total 76 ml 240 ml Balance 76 ml 240 ml medications Current Medications Medications Dose Ordered Sig/[place] Route Start Time Stop Time Status Last Admin Dose Admin Acetaminophen 325 mg Q4HP PRN PO 11/16/24 23:45 Ticagrelor 90 mg BID PO 11/17/24 10:00 11/17/24 23:03 90 MG Aspirin 81 mg DAILY PO 11/17/24 10:00 11/17/24 10:00 81 MG Amlodipine Besylate 10 mg DAILY PO 11/17/24 10:00 11/18/24 08:13 10 MG Diagnostic Test (Pha) 1 strip Q6HR 11/17/24 06:00 11/18/24 16:39 1 STRIP Insulin Human Regular Q6HR SC 11/17/24 06:00 11/18/24 11:37 4 UNITS Dextrose 50 ml UD PRN IV 11/17/24 00:30 Morphine Sulfate 2 mg Q4HPRN PRN IV 11/17/24 00:30 11/17/24 20:27 2 MG Atorvastatin Calcium 80 mg HS PO 11/17/24 22:00 11/17/24 23:03 80 MG Clonidine HCl 0.1 mg DAILY PO 11/18/24 10:00 11/18/24 08:13 0.1 MG Hydralazine HCl 10 mg Q4HPRN PRN IV 11/17/24 14:45 11/18/24 13:30 10 MG Nitroglycerin 0.4 mg Q5MINP PRN SL 11/17/24 21:45 11/17/24 22:03 0.4 MG Heparin Sodium/ Dextrose 250 ml @ 18 mls/hr [id number] IV 11/18/24 18:45 objective GENERAL: Alert and oriented x 3. No acute distress. EYES: PERRL, EOMI. Anicteric. HENT: Moist mucous membranes. LUNGS: Clear to auscultation bilaterally. CARDIOVASCULAR: Regular rate and rhythm. ABDOMEN: Soft, nontender and nondistended. EXTREMITIES: No edema. NEUROLOGIC: No focal neurological deficits. SKIN: Warm, dry. laboratory and microbiology Laboratory Tests 11/18/24 10:23 11/17/24 04:21 Test 11/17/24 04:21 Range/Units Serum Glucose 102 74-106 mg/dL Problem List NSTEMI, rule out progressive coronary artery disease. Coronary artery disease status post PTCA x 2 ELZBIETA (on Brilinta and aspirin). Hypertension. Dyslipidemia. Covid. Type 2 diabetes mellitus. Tobacco use. Obesity. Assessment/Plan Continued all current supportive medical care. Amlodipine, Clonidine. Aspirin, Lipitor, Brilinta. Heparin drip per pharmacy. Nitro SL. Additional plan as per the hospital course. Plan discussed with: Patient LILO CONLEY MD Nov 18, 2024 21:08
[2024-11-19] VITALS (13 sets, daily range): BP systolic 130–181; BP diastolic 59–100; PULSE 60–90; RESP 12–20; TEMP 97.3–99; O2SAT 93–100
[2024-11-19 01:14] LABS: INR 1.01 (0.9-1.15); Partial Thromboplastin Time 57.8 SEC (24.5-34.5); Prothrombin Time 10.7 sec (9.3-11.8)
[2024-11-19 07:18] LABS: Basophils # (auto) 0.1 10 ^3/uL (0-0.2); Basophils % (auto) 0.9 % (0.0-2.0); Eosinophils # (auto) 0.1 10 ^3/uL (0-0.8); Hematocrit 42.7 % (41.0-53.0); Hemoglobin 14.3 g/dL (13.5-17.5); Lymphocytes # (auto) 2.3 10 ^3/uL (0.4-5.4); Lymphocytes % (auto) 31.6 % (10.0-50.0); Mean Corpuscular Hemoglobin 28.1 pg (28.0-32.0); Mean Corpuscular Hgb Conc. 33.5 g/dL (32.0-36.0); Mean Corpuscular Volume 83.8 fL (80.0-100.0); Monocytes # (auto) 0.9 10 ^3/uL (0-1.3); Neutrophils # (auto) 3.8 10 ^3/uL (1.6-8.6); Neutrophils % (auto) 53.5 % (37.0-80.0); Platelet Count (auto) 281 10^3/uL (140-450); Red Cell Distribution Width 15.7 % (11.8-14.3); White Blood Cell 7.2 10^3/uL (4.4-10.8)
[2024-11-19 07:24] LABS: Potassium 3.9 mmol/L (3.5-5.1); Sodium 140 mmol/L (136-145)
[2024-11-19 07:25] LABS: Anion Gap 6 (5-15); Calcium 9.6 mg/dL (8.7-10.4); Carbon Dioxide 24 mmol/L (20-31)
[2024-11-19 07:27] LABS: Chloride 110 mmol/L (98-107); INR 1.01 (0.9-1.15); Partial Thromboplastin Time 38.1 SEC (24.5-34.5); Prothrombin Time 10.7 sec (9.3-11.8)
[2024-11-19 07:30] LABS: BUN/Creatinine Ratio 12.2 (10.0-20.0); Blood Urea Nitrogen 12 mg/dL (9-23)
[2024-11-19 07:33] LABS: Glucose 116 mg/dL (74-106)
--- NOTE | 2024-11-19 08:39 | CONS ---
Pharmacy Clinical Information: INCREASE HEPARIN DRIP RATE TO 2000 UNITS/HR PER APTT OF 38.1 NEXT APTT DRAW SCHEDULED FOR 1430 PER RX PROTOCOL NESTOR PALMA CONFIRMED AND READ BACK Emma Rey PHARMACIST Nov 19, 2024 08:39
[2024-11-19] MEDS: ANGIOMAX 250 MG VIAL IV ONE ×2 (08:42→09:45)
[2024-11-19] MEDS: VERAPAMIL 2.5MG/ML INJ 2ML VIAL IV ONE (08:42)
[2024-11-19] MEDS: fentaNYL CITRATE 100 MCG/2 ML VL ONE ×2 (08:43→09:48)
[2024-11-19] MEDS: LIDOCAINE 2%HCL (LOCAL ANESTH.) INJ 20ML MDV ONE (08:43)
[2024-11-19] MEDS: MIDAZOLAM HCL 2MG/2ML 2ml VIAL (1mg/ml) ONE ×2 (08:43→09:48)
[2024-11-19] MEDS ORDERED: HEPARIN DRIP/D5W 100UNITS/ML 250 ML IV SCH (08:45)
[2024-11-19] MEDS: SODIUM CHL 0.9% 50 ML ONE ×2 (09:17→09:45)
[2024-11-19] MEDS: IODIXANOL 320MG/ML 100ML BTL IV ONE (09:57)
[2024-11-19] MEDS: LABETALOL HCL 5 MG/ML ML 20ML VIAL IV ONE (09:58)
[2024-11-19] MEDS: CLOPIDOGREL BISULFATE 75 MG TAB ONE ×2 (10:01→10:02)
[2024-11-19] MEDS ORDERED: EPTIFIBATIDE INJ (2MG/ML) 10ML VIAL IV ONE (10:02)
[2024-11-19] MEDS: NITROGLYCERIN 0.4MG/DOSE SPRAY 4.9GM ONE (10:02)
[2024-11-19 10:28] LABS: Folate (Folic Acid) 9.48 ng/mL (>5.38)
--- NOTE | 2024-11-19 10:50 | ECG ---
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
[2024-11-19] MEDS: ACETAMINOPHEN 325 MG TAB PO PRN (10:57)
[2024-11-19] MEDS: EPTIFIBATIDE INJ (2MG/ML) 10ML VIAL IV ONE (11:26)
--- NOTE | 2024-11-19 11:42 | DVHOP ---
DATE OF SURGERY: 11/19/2024 TECHNIQUE PERFORMED: * Emergency case. * Ultrasound of the right radial artery with management of conscious sedation. * Insertion of the 6-Latvian arterial line in the right radial artery. * [place] selective left and right coronary artery angiography. ASSISTANTS: Assisted by Greta Wilson Joshue and Angie. INDICATIONS: The patient has an acute non-ST elevation myocardial infarction, history of previous coronary stenting, left anterior descending artery, classical acute coronary syndrome, emergency case. DESCRIPTION OF PROCEDURE: The procedure risks, benefits discussed in standard manner. Indications, risks, benefits, and alternatives all have been explained. The right radial area thoroughly cleaned with soap and Betadine. Lidocaine was given. A 6-[place]vian arterial line had been placed. We have given 100 mcg of nitroglycerin, 2.5 mg of verapamil, 2000 units of heparin. A TIG catheter of 5-Latvian 4.0 was passed and left angio was done. With the help of similar catheter, we had also done the right groin coronary angiography. Procedure completed. IMPRESSION: * Normal left main. * Left previously deployed stent in the left anterior descending artery, widely open. * The circumflex is a very large artery and in the mid region is 99% blocked with underlying thrombus formation. * The obtuse marginal artery arising from the most proximal region of the circumflex artery has underlying 60% narrowing in its mid region, by LUISA grade 3 flow. * The right coronary artery is a large dominant artery, 100% blocked distally, had been filling up to his distal one-third with the help of the left coronary system. PLAN OF ACTION: Advised to undergo the intervention on the large left circumflex artery. Fito León MD MP/JENIFFER/ROB TID: [id number] RECEIPT: [id number]
[2024-11-19] MEDS: ASPirin 81 mg TAB PO SCH (11:59)
--- NOTE | 2024-11-19 12:26 | DVHOP ---
DATE OF SURGERY: 11/19/2024 TECHNIQUE PERFORMED: * Emergency case. * Left coronary artery angiography. * Insertion of 6-Bengali arterial line from right radial artery and ultrasound of right radial artery. * Mechanical thrombectomy of the left circumflex artery with 6-Bengali [place] catheter. * Balloon angioplasty of mid region of the left circumflex artery with 3.5 x 12 mm semi-compliant balloon. * Stenting and angioplasty of the mid region of the left circumflex artery with 3.5 x 15 mm length [place] Letcher stent of [employer]. * Intracoronary administration of Integrilin. COMPLICATIONS: None. ASSISTANTS: Assisted by Greta Wilson Joshue an Angie. INDICATIONS: * The patient has acute myocardial infarction. * The patient has 99.9% narrowing of the left femoral artery with underlying thrombosis formation. DESCRIPTION OF PROCEDURE: The procedure risks an benefits were discussed. IV Angiomax was given. A 6-Bengali 3.0 XB catheter was passed. Runthrough wire was passed. Subsequently, we put the [place] catheter subsequently we put a 3.5 x 12 mm semi-compliant balloon was passed for balloon angioplasty and subsequently we put a 3.0 x 15 mm length Rajat Letcher stent of [employer] had been deployed, a total of 30 atmospheres and the stent size had been increased to 3.6 mm inflated for 35 seconds. Balloon had been discontinued. Angiography was done. Result was satisfactory. There were no complications. The procedure went well. Subsequently IV Integrilin had been advised. CONCLUSION: The left circumflex artery was 99.9% blocked, thrombose formation, LUISA grade 2 flow, post-procedure LUISA grade 3 flow with residual stenosis is 0%. Procedure went well. Advised for a loading dose of Plavix 600 mg followed by Integrilin, aspirin, Plavix, beta-micah, cholesterol reducing medicine. Outpatient followup. Fito León MD MP/CHARANJIT/MARGE TID: [id number] RECEIPT: [id number] MTDKong
--- NOTE | 2024-11-19 21:33 | DVHPNRES ---
Progress Note Date Seen: Nov 19, 2024 Resident Creating Document: KELLI JACKSON RESIDENT Has the PT tested + for MRSA If YES, has PT been informed?: No Medical Necessity Reason Pt with a Central, PICC or Fol: No Medical Necessity Reason History of Present Illness Patient is a 44-year-old male with past medical history of [place] s/p PCI ELZBIETA x2 once in 2011 in [place] and 2nd time in November 2022 at [facility], hypertension, dyslipidemia, diabetes, nephrolithiasis, who comes in due to chest pain. According to the patient, he has been experiencing chest pain for the last 1 week which has progressively worsened, and became extreme over the last 2 days. At its most extreme intensity, pain was 10/10, pressure-like, worse with eating moving and lifting heavy objects relieved with nitroglycerin and Tylenol. Patient notes that today while he was moving boxes, he started experiencing 10/10 chest pain again which is what prompted this visit to the hospital. Patient denies similar symptoms in the past, notes that this chest pain was much more severe than prior MIs. On review of systems patient is complaining of fatigue, shortness of breaths, diarrhea, urinary frequency. Patient was noted to have serial troponin 801, 808, 734. EKG showed inferolateral ST depression and left ventricular hypertrophy. Patient was admitted to the hospital started on heparin drip, aspirin, statin, ticagrelor and Cardiology was consulted. Past Medical History: [place] s/p PCI ELZBIETA x2 once in 2011 in [place] and 2nd time in November 2022 at [facility], hypertension, dyslipidemia, diabetes, nephrolithiasis Past Surgical History: PTCA x2 Past Social History:Smoking: Half a pack per day for the last 25 years, Denies alcohol, drugs and allergies Home medications: Amlodipine, aspirin, atorvastatin, metformin, ticagrelor PN: 11/17/2024 Patient seen and examined s sitting in a chair today patient did admits to having chest pain at home that did not improve after taking 3 nitroglycerin. And of note patient's troponins are elevated and also his [address] depression in the inferior leads and also evidence of left ventricular hypertrophy. Currently patient does not have pain chest pain active chest pain his troponin levels are also going down. Cardiology consulted and pending the assessment of the patient and for intervention. COVID testing came back positive however patient is not actively and shortness of breaths the denied any symptoms of like we will go changes in his stays or smell therefore what patient and treat accordingly. PN: 11/19/2024 Patient had Left coronary artery angiography. He had mechanical thrombectomy of the left circumflex artery with 6-Citizen [place] catheter. Balloon angioplasty of mid region of the left circumflex artery with 3.5 x 12 mm semi-compliant ballooN and Stenting and angioplasty of the mid region of the left circumflex artery with 3.5 x 15 mm length Rajat [place] stent of [employer].Intracoronary administration of Integrilin. He is dong well this evening. Will monitor him over night and discharge him in the morning. if he is ok Subjective Review of Systems Constitutional: Denies fever no chills no feeling of malaise HEENT: Denies headache, ear pain, ear discharges, conjunctivitis, nasal discharge throat pain Cardiovascular: Denies chest pain, palpitation, orthopnea, PND, or pedal edema Respiratory: Denies shortness of breath, cough cough, sputum production, hemoptysis, GI: Denies abdominal pain, nausea, vomiting, diarrhea, hematemesis, hematochezia, : Denies frequency, urgency, hematuria, Endocrine: Denies unintentional weight gain or weight loss, feeling of hot flashes, Francesco: Denies easy bruising, bleeding disorders, epistaxis Musculoskeletal: Denies joint pains, muscle aches Psych: No evidence of depression, mamta, suicidal ideation Objective vital signs Vital Sign Date Time Temp Pulse Resp B/P (MAP) Pulse Ox O2 Delivery O2 Flow Rate FiO2 11/19/24 16:59 97.7 70 20 133/79 (97) 98 97.7 11/19/24 08:00 Room Air* 0 21 Total Intake and Output 11/18/24 11/18/24 11/19/24 15:00 23:00 07:00 Intake Total 1800 ml 800 ml Output Total 600 ml Balance 1200 ml 800 ml medications Current Medications Medications Dose Ordered Sig/[place] Route Start Time Stop Time Status Last Admin Dose Admin Acetaminophen 325 mg Q4HP PRN PO 11/16/24 23:45 11/19/24 10:57 325 MG Ticagrelor 90 mg BID PO 11/17/24 10:00 11/19/24 11:58 90 MG Amlodipine Besylate 10 mg DAILY PO 11/17/24 10:00 11/19/24 11:58 10 MG Diagnostic Test (Pha) 1 strip Q6HR 11/17/24 06:00 11/19/24 18:00 1 STRIP Insulin Human Regular Q6HR SC 11/17/24 06:00 11/19/24 00:18 3 UNITS Dextrose 50 ml UD PRN IV 11/17/24 00:30 Morphine Sulfate 2 mg Q4HPRN PRN IV 11/17/24 00:30 11/18/24 22:19 2 MG Atorvastatin Calcium 80 mg HS PO 11/17/24 22:00 11/18/24 21:38 80 MG Clonidine HCl 0.1 mg DAILY PO 11/18/24 10:00 11/19/24 11:59 0.1 MG Hydralazine HCl 10 mg Q4HPRN PRN IV 11/17/24 14:45 11/19/24 10:52 10 MG Nitroglycerin 0.4 mg Q5MINP PRN SL 11/17/24 21:45 11/17/24 22:03 0.4 MG Clopidogrel Bisulfate 75 mg DAILY PO 11/20/24 10:00 Aspirin 81 mg DAILY PO 11/19/24 10:00 11/19/24 11:59 81 MG Examination General Appearance: Alert, Oriented X3, Cooperative, No acute distress HEENT: Atraumatic, PERRLA, EOMI, Mucous membrane moist/pink Respiratory: Clear to auscultation, Normal air movement Cardiovascular: Regular rate, Normal S1, Normal S2, No murmurs, no chest wall tenderness Abdominal: NO distention, no tenderness, bowel sounds present, no scars noted Extremities: No clubbing, No cyanosis, No edema, Normal pulses, No tenderness/swelling Skin: No rashes, No breakdown, No significant lesion Neuro: Normal gait, Normal speech, Strength at 5/5 X4 ext, Normal tone, Sensation intact, Cranial nerves 3-12 NL, Reflexes 2+ Psych/Mental Status: Mental status NL, Mood NL laboratory and microbiology Laboratory Tests 11/19/24 06:42 Test 11/19/24 06:42 Range/Units Serum Glucose 116 H 74-106 mg/dL Microbiology Date/Time Source Procedure Growth Status 11/18/24 10:12 Nose MRSA Screen - Final Complete Problem List/Assessment/Plan Problem List/Assessment/Plan Assessment NSTEMI probably type 1 s/p [facility], mechanical thrombectomy of the left circumflex artery with 6-Citizen [place] catheter. Balloon angioplasty of mid region of the left circumflex artery with 3.5 x 12 mm semi-compliant balloon and Stenting and angioplasty Coronary artery disease --> Advised for a loading dose of Plavix 600 mg followed by Integrilin, aspirin, Plavix, beta-micah, cholesterol reducing medicine. --> Outpatient followup with Dr. León History of CAD s/p stent x2 --> Continue aspirin 81 mg daily --> resumed home medication ticagrelor COVID-19 infection --> Monitor closely --> on room air --> monitor Diarrhea possibly due to metformin use versus gastroenteritis Dehydration due to above - stool culture, stool C diff, stool WBCs - monitor Hypertension --> Continue amlodipine 10mg Dyslipidemia --> atorvastatin 80 mg Type 2 diabetes - mild sliding scale insulin Hypokalemia - repleted Obesity class 2 -counseled Goal of care discussed for 25 minutes Case and plan discussed with Dr. Pierre Plan discussed with: Patient, Spouse Dietary Evaluation Review Comments: 1. Continue Cardiac diet as tolerated 2. Encourage good oral intakes >75% of meals 3. Monitor BG, insuling for correction; goal <180 mg/dl while inpatient Expected Outcomes/Goals: Maintain adequate nutrition. Date of Service: Nov 19, 2024 Billing Provider: CLAUDIA PIERRE MD Common Visit Codes: [id number] INP/OBS CARE(HIGH) KELLI JACKSON RESIDENT Nov 19, 2024 21:33 CLAUDIA PIERRE MD November 23, 2024 19:09
--- NOTE | 2024-11-19 23:42 | DVHPN2 ---
Progress Note - Dictate Date Seen: Nov 19, 2024 Has the PT tested + for MRSA If YES, has PT been informed?: No Medical Necessity Reason Pt with a Central, PICC or Fol: No Subjective Patient was seen and evaluated in follow up. Patient underwent emergency [place] selective left and right coronary artery angiography, left coronary artery angiography, mechanical thrombectomy of the left circumflex artery, balloon angioplasty of mid region of the left circumflex artery, stenting and angioplasty of the mid region of the left circumflex artery, intracoronary administration of Integrilin. The left circumflex artery was 99.9% blocked, thrombose formation, LUISA grade 2 flow, post-procedure LUISA grade 3 flow with residual stenosis is 0%. Procedure went well. Advised for a loading dose of Plavix 600 mg followed by Integrilin, aspirin, Plavix, beta-micah, cholesterol reducing medicine. Outpatient followup. Telemetry reviewed. vital signs Vital Sign Date Time Temp Pulse Resp B/P (MAP) Pulse Ox O2 Delivery O2 Flow Rate FiO2 11/19/24 21:00 98.8 90 18 131/89 (103) 97 98.8 11/19/24 08:00 Room Air* 0 21 Total Intake and Output 11/18/24 11/18/24 11/19/24 15:00 23:00 07:00 Intake Total 1800 ml 800 ml Output Total 600 ml Balance 1200 ml 800 ml medications Current Medications Medications Dose Ordered Sig/[place] Route Start Time Stop Time Status Last Admin Dose Admin Acetaminophen 325 mg Q4HP PRN PO 11/16/24 23:45 11/19/24 10:57 325 MG Ticagrelor 90 mg BID PO 11/17/24 10:00 11/19/24 22:36 90 MG Amlodipine Besylate 10 mg DAILY PO 11/17/24 10:00 11/19/24 11:58 10 MG Diagnostic Test (Pha) 1 strip Q6HR 11/17/24 06:00 11/19/24 18:00 1 STRIP Insulin Human Regular Q6HR SC 11/17/24 06:00 11/19/24 00:18 3 UNITS Dextrose 50 ml UD PRN IV 11/17/24 00:30 Morphine Sulfate 2 mg Q4HPRN PRN IV 11/17/24 00:30 11/18/24 22:19 2 MG Atorvastatin Calcium 80 mg HS PO 11/17/24 22:00 11/19/24 22:36 80 MG Clonidine HCl 0.1 mg DAILY PO 11/18/24 10:00 11/19/24 11:59 0.1 MG Hydralazine HCl 10 mg Q4HPRN PRN IV 11/17/24 14:45 11/19/24 10:52 10 MG Nitroglycerin 0.4 mg Q5MINP PRN SL 11/17/24 21:45 11/17/24 22:03 0.4 MG Clopidogrel Bisulfate 75 mg DAILY PO 11/20/24 10:00 Aspirin 81 mg DAILY PO 11/19/24 10:00 11/19/24 11:59 81 MG objective GENERAL: Alert and oriented x 3. No acute distress. EYES: PERRL, EOMI. Anicteric. HENT: Moist mucous membranes. LUNGS: Clear to auscultation bilaterally. CARDIOVASCULAR: Regular rate and rhythm. ABDOMEN: Soft, nontender and nondistended. EXTREMITIES: No edema. NEUROLOGIC: No focal neurological deficits. SKIN: Warm, dry. laboratory and microbiology Laboratory Tests 11/19/24 06:42 Test 11/19/24 06:42 Range/Units Serum Glucose 116 H 74-106 mg/dL Problem List NSTEMI, rule out progressive coronary artery disease. Coronary artery disease status post PTCA x 2 ELZBIETA (on Brilinta and aspirin). Hypertension. Dyslipidemia. Covid. Type 2 diabetes mellitus. Tobacco use. Obesity. Assessment/Plan Continued all current supportive medical care. Amlodipine, Clonidine. Aspirin, Lipitor, Brilinta. Heparin drip per pharmacy. Nitro SL. Additional plan as per the hospital course. Dietary Evaluation Review Comments: 1. Continue Cardiac diet as tolerated 2. Encourage good oral intakes >75% of meals 3. Monitor BG, insuling for correction; goal <180 mg/dl while inpatient Expected Outcomes/Goals: Maintain adequate nutrition. Plan discussed with: Patient LILO CONLEY MD Nov 19, 2024 23:42
[2024-11-20 01:00] VITALS: BP 150/77; PULSE 86; RESP 18; TEMP 98.3; O2SAT 100
[2024-11-20 05:00] VITALS: BP 165/79; PULSE 72; RESP 18; TEMP 98.5; O2SAT 96
--- NOTE | 2024-11-20 07:28 | DVHDSRES ---
Discharge Summary Date of Admission Resident Creating Document: RENETTAKELLI RESIDENT Nov 16, 2024 at 23:41 Date of Discharge: Nov 20, 2024 Admitting Diagnosis chest pain Labs/Diagnostic Data: PATIENT: RONALDO FABIAN ACCT: [id number] UNIT: [id number] : 1980 LOC: ER ROOM / BED: / AGE / SEX: 44 / M ADM STATUS: REG ER SERVICE 17 ORDERING PHYSICIAN: ROBERTO DHALIWAL MD PROCEDURE(s): CXRP - CHEST PORTABLE REASON: chest pain ORDER NUMBER(s): [id number], ACCESSION NUMBER(s): [id number] CHEST RADIOGRAPH Indication: chest pain Technique: Single frontal view of the chest was obtained Comparison: XY CHEST PORTABLE on DOS: 09/29/24, XY CHEST XRAY 1 VIEW on DOS: 08/28/24, XY CHEST XRAY 1 VIEW on DOS: 05/03/23 FINDINGS: Lines and Tubes: None Lungs: No focal consolidation. Pleura: No effusion. No pneumothorax. Cardiomediastinal contours: Unremarkable Bones: No acute osseous abnormality. IMPRESSION: 1. No acute cardiopulmonary disease. HS:Y ATED BY: VINICIO MINA Jr. DO DICTATED DATE/TIME: 11/16/242245 Laboratory Results Test 11/20/24 05:56 11/19/24 06:42 11/17/24 07:08 11/17/24 04:21 POC Glucose 104 mg/dl (70-106) White Blood Count 7.2 10^3/uL (4.4-10.8) Red Blood Count 5.10 10^6/uL (4.5-5.90) Hemoglobin 14.3 g/dL (13.5-17.5) Hematocrit 42.7 % (41.0-53.0) Mean Corpuscular Volume 83.8 fL (80.0-100.0) Mean Corpuscular Hemoglobin 28.1 pg (28.0-32.0) Mean Corpuscular Hemoglobin Concent 33.5 g/dL (32.0-36.0) Red Cell Distribution Width 15.7 % (11.8-14.3) Platelet Count 281 10^3/uL (140-450) Mean Platelet Volume 8.8 fL (6.9-10.8) Neutrophils (%) (Auto) 53.5 % (37.0-80.0) Lymphocytes (%) (Auto) 31.6 % (10.0-50.0) Monocytes (%) (Auto) 12.0 % (0.0-12.0) Eosinophils (%) (Auto) 2.0 % (0.0-7.0) Basophils (%) (Auto) 0.9 % (0.0-2.0) Neutrophils # (Auto) 3.8 10 ^3/uL (1.6-8.6) Lymphocytes # (Auto) 2.3 10 ^3/uL (0.4-5.4) Monocytes # (Auto) 0.9 10 ^3/uL (0-1.3) Eosinophils # (Auto) 0.1 10 ^3/uL (0-0.8) Basophils # (Auto) 0.1 10 ^3/uL (0-0.2) Nucleated Red Blood Cells 0.0 % Prothrombin Time 10.7 sec (9.3-11.8) Prothrombin Time INR 1.01 (0.9-1.15) Activated Partial Thromboplast Time 38.1 SEC (24.5-34.5) Sodium Level 140 mmol/L (136-145) Potassium Level 3.9 mmol/L (3.5-5.1) Chloride Level 110 mmol/L (98-107) Carbon Dioxide Level 24 mmol/L (20-31) Anion Gap 6 (5-15) Blood Urea Nitrogen 12 mg/dL (9-23) Creatinine 0.98 mg/dL (0.700-1.30) Glomerular Filtration Rate Calc 97 mL/min (>90) BUN/Creatinine Ratio 12.2 (10.0-20.0) Serum Glucose 116 mg/dL (74-106) Calcium Level 9.6 mg/dL (8.7-10.4) Urine Color Colorless (Yellow) Urine Clarity Clear (Clear) Urine pH 6.0 (5.0-9.0) Urine Specific [place] 1.011 (1.001-1.035) Urine Protein Negative (Negative) Urine Ketones Negative (Negative) Urine Blood Negative /uL (Negative) Urine Nitrite Negative (Negative) Urine Bilirubin Negative (Negative) Urine Urobilinogen Normal mg/dL (Negative) Urine Leukocyte Esterase Negative /uL (Negative) Urine RBC <1 /hpf (0 - 3) Urine Microscopic WBC < 1 /HPF (0-3) Urine Squamous Epithelial Cells None seen /hpf (<5) Urine Bacteria None seen /hpf (None Seen) Urine Glucose Normal mg/dL (Normal) Urine Opiates Screen Neg (NEGATIVE) Urine Fentanyl Screen Neg (NEGATIVE) Urine Barbiturates Screen Neg (NEGATIVE) Urine Phencyclidine Screen Neg (NEGATIVE) Urine Amphetamines Screen Neg (NEGATIVE) Urine Benzodiazepines Screen Neg (NEGATIVE) Urine Cocaine Screen Neg (NEGATIVE) Urine Cannabinoids Screen Neg (NEGATIVE) Magnesium Level 2.0 mg/dL (1.6-2.6) Total Bilirubin 1.0 mg/dL (0.2-1.0) Aspartate Amino Transferase (AST) 12 U/L (13-40) Alanine Aminotransferase (ALT) 34 U/L (7-40) Alkaline Phosphatase 101 U/L (46-116) Total Protein 7.1 g/dL (5.7-8.2) Albumin 4.6 g/dL (3.2-4.8) Triglycerides Level 194 mg/dL (< 150) Cholesterol Level 126 mg/dL (< 200) LDL Cholesterol 71 mg/dL (< 100) HDL Cholesterol 30 mg/dL (40-59) Vitamin B12 Level 336 pg/mL (211-911) Vitamin D 25-Hydroxy 52.4 ng/mL (30.0-100) Folic Acid 9.48 ng/mL (>5.38) Thyroid Stimulating Hormone (TSH) 1.13 uIU/mL (0.55-4.78) Test 11/17/24 01:22 11/17/24 01:18 11/16/24 22:11 Influenza Type A Antigen Negative (Negative) Influenza Type B Antigen Negative (Negative) SARS-CoV-2 Antigen (Rapid) Positive (NEGATIVE) Troponin I High Sensitivity 734 ng/L (</=54) Hemoglobin A1c 6.0 % A1C (<5.7) B-Type Natriuretic Peptide 64.54 pg/mL (0-100) Lipase 55 U/L (12-53) Other Laboratory Tests 11/19/24 06:42 Brief Hx & Hospital Course: History of Present Illness Patient is a 44-year-old male with past medical history of PR s/p PCI ELZBIETA x2 once in 2011 in [place] and 2nd time in November 2022 at [facility], hypertension, dyslipidemia, diabetes, nephrolithiasis, who comes in due to chest pain. According to the patient, he has been experiencing chest pain for the last 1 week which has progressively worsened, and became extreme over the last 2 days. At its most extreme intensity, pain was 10/10, pressure-like, worse with eating moving and lifting heavy objects relieved with nitroglycerin and Tylenol. Patient notes that today while he was moving boxes, he started experiencing 10/10 chest pain again which is what prompted this visit to the hospital. Patient denies similar symptoms in the past, notes that this chest pain was much more severe than prior MIs. On review of systems patient is complaining of fatigue, shortness of breaths, diarrhea, urinary frequency. Patient was noted to have serial troponin 801, 808, 734. EKG showed inferolateral ST depression and left ventricular hypertrophy. Patient was admitted to the hospital started on heparin drip, aspirin, statin, ticagrelor and Cardiology was consulted. Past Medical History: PR s/p PCI ELZBIETA x2 once in 2011 in [place] and 2nd time in November 2022 at [facility], hypertension, dyslipidemia, diabetes, nephrolithiasis Past Surgical History: PTCA x2 Past Social History:Smoking: Half a pack per day for the last 25 years, Denies alcohol, drugs and allergies Home medications: Amlodipine, aspirin, atorvastatin, metformin, ticagrelor Brief Hospital course Patient is a 44 year old male PR s/p PCI ELZBIETA x2 once in 2011 in [place] and 2nd time in November 2022 at [facility], hypertension, dyslipidemia, diabetes, nephrolithiasis, who comes in due to chest pain. He presented to the ED with chest pain for a week rated 10/10. He took 3 nitroglycerin with much improvement. Thus leading to the visit. In the ED, his troponin were elevated in the 800s. EKG showed inferolateral ST depression and left ventricular hypertrophy. Cardiology consulted and seen. At the time, his troponin levelled and his pain had subsided. Patient was kept on heparin drip. He was later taken to the OR for left heart catheterization who showed 99.9% occlusion. Patient had mechanical thrombectomy of the left circumflex artery with 6-[place] catheter. Balloon angioplasty of mid region of the left circumflex artery with 3.5 x 12 mm semi-compliant balloon and Stenting and angioplasty of the mid region of the left circumflex artery with 3.5 x 15 mm length [place] stent of [place].Intracoronary administration of Integrilin. He is dong well post procedure. Patient was monitored overnight. His blood pressure was mildly elevated next morning. Patient takes clonidine when his blood pressure is SBP > 160. He was in a hurry to leave the next morning. So he took his home medication ( clonidine). He was discharged home in a stable state. Patient advised to followup with the cardiology in 2-3 weeks. Patient takes Brilinta and Aspirin at home and he has those medication with him prior to going home. Review of Systems Constitutional: Denies fever no chills no feeling of malaise HEENT: Denies headache, ear pain, ear discharges, conjunctivitis, nasal discharge throat pain Cardiovascular: Denies chest pain, palpitation, orthopnea, PND, or pedal edema Respiratory: Denies shortness of breath, cough cough, sputum production, hemoptysis, GI: Denies abdominal pain, nausea, vomiting, diarrhea, hematemesis, hematochezia, : Denies frequency, urgency, hematuria, Endocrine: Denies unintentional weight gain or weight loss, feeling of hot flashes, Francesco: Denies easy bruising, bleeding disorders, epistaxis Musculoskeletal: Denies joint pains, muscle aches Psych: No evidence of depression, mamta, suicidal ideation Examination General Appearance: Alert, Oriented X3, Cooperative, No acute distress HEENT: Atraumatic, PERRLA, EOMI, Mucous membrane moist/pink Respiratory: Clear to auscultation, Normal air movement Cardiovascular: Regular rate, Normal S1, Normal S2, No murmurs, no chest wall tenderness Abdominal: NO distention, no tenderness, bowel sounds present, no scars noted Extremities: No clubbing, No cyanosis, No edema, Normal pulses, No tenderness/swelling Skin: No rashes, No breakdown, No significant lesion Neuro: Normal gait, Normal speech, Strength at 5/5 X4 ext, Normal tone, Sensation intact, Cranial nerves 3-12 NL, Reflexes 2+ Psych/Mental Status: Mental status NL, Mood NL Diagnoses NSTEMI probably type 1 s/p LHC, mechanical thrombectomy of the left circumflex artery with 6-[place] catheter. Balloon angioplasty of mid region of the left circumflex artery with 3.5 x 12 mm semi-compliant balloon and Stenting and angioplasty ( 11/19/2024) Coronary artery disease History of CAD s/p stent x2 COVID-19 infection, asymptomatic Diarrhea possibly due to metformin use versus gastroenteritis Dehydration due to above Hypertension Dyslipidemia Type 2 diabetes Hypokalemia Obesity class 2 Discharge plan Follow up with D/C clinic follow with Dr. León in 2-3 weeks Advised the importance of medication adherence Advised to report back to the ED SP when he starts getting chest pain Case and discharge plan discussed with Dr. Whittington. Consults/Reason for consult NSTEMI Operations or Procedures Patient: RONALDO FABIAN Acct: [id number] : 1980 Loc: [facility] Age/Sex: 44/M Room: 0238T / Bed: A Attending Phy: KELLI JACKSON DATE OF SURGERY: 11/19/2024 TECHNIQUE PERFORMED: * Emergency case. * Ultrasound of the right radial artery with management of conscious sedation. * Insertion of the 6-[place] arterial line in the right radial artery. * [place] selective left and right coronary artery angiography. ASSISTANTS: Assisted by Greta Wilson Joshue and Nina. INDICATIONS: The patient has an acute non-ST elevation myocardial infarction, history of previous coronary stenting, left anterior descending artery, classical acute coronary syndrome, emergency case. DESCRIPTION OF PROCEDURE: The procedure risks, benefits discussed in standard manner. Indications, risks, benefits, and alternatives all have been explained. The right radial area thoroughly cleaned with soap and Betadine. Lidocaine was given. A 6-[place] arterial line had been placed. We have given 100 mcg of nitroglycerin, 2.5 mg of verapamil, 2000 units of heparin. A TIG catheter of 5-[place] 4.0 was passed and left angio was done. With the help of similar catheter, we had also done the right groin coronary angiography. Procedure completed. IMPRESSION: * Normal left main. * Left previously deployed stent in the left anterior descending artery, widely open. * The circumflex is a very large artery and in the mid region is 99% blocked with underlying thrombus formation. * The obtuse marginal artery arising from the most proximal region of the circumflex artery has underlying 60% narrowing in its mid region, by LUISA grade 3 flow. * The right coronary artery is a large dominant artery, 100% blocked distally, had been filling up to his distal one-third with the help of the left coronary system. PLAN OF ACTION: Advised to undergo the intervention on the large left circumflex artery. Lilo León MD MP/JENIFFER/ROB TID: [id number] RECEIPT: [id number] DICTATED BY:LILO LEÓN MD DICTATED DATE/TIME:11/19/24 0807 Condition at Discharge: Good Final Diagnosis/Problems List NSTEMI type 1 s/p LHC, mechanical thrombectomy of the left circumflex artery with 6-[place] catheter. Balloon angioplasty of mid region of the left circumflex artery with 3.5 x 12 mm semi-compliant balloon and Stenting and angioplasty Coronary artery disease History of CAD s/p stent x2 COVID-19 infection, asymptomatic Diarrhea possibly due to metformin use versus gastroenteritis Dehydration due to above Hypertension Dyslipidemia Type 2 diabetes Hypokalemia Obesity class 2 Discharge Disposition: Home Discharge Statement: "Patient was advised to return to the ER or call 911 if any headaches, dizziness, shortness of breath, chest pain, abdominal pain, bleeding, fevers, or worsening of medical condition. Patient was counseled about treatment plan, medications, possible side effects, patientverbalized understanding. All questions were answered to the best of my ability. This discharge took greater then 30 minutes in planning, reviewing documentation, counseling the patient, and discussing with other team members." ASSESSMENT ASSESSMENT Assessment Date of Service: Nov 20, 2024 Billing Provider: CLAUDIA WHITTINGTON MD Common Visit Codes: 31707-WIY/OBS DISCH DAY >30min KELLI JACKSON RESIDENT Nov 20, 2024 07:28 CLAUDIA WHITTINGTON MD November 23, 2024 19:16
[2024-11-20] MEDS ORDERED: ATOR20TA50 PO (07:33)
[2024-11-20] MEDS ORDERED: ASPI-325 PO (07:33)
[2024-11-20 08:00] VITALS: O2SAT 0
[2024-11-20 08:40] VITALS: BP 156/93; PULSE 76; RESP 20; TEMP 98; O2SAT 99
[2024-11-20] MEDS ORDERED: CLOPIDOGREL BISULFATE 75 MG TAB PO SCH (10:00)
--- NOTE | 2024-11-20 23:21 | DVHPN2 ---
Progress Note - Dictate Date Seen: Nov 20, 2024 Has the PT tested + for MRSA If YES, has PT been informed?: No Medical Necessity Reason Pt with a Central, PICC or Fol: No Subjective Patient was seen and evaluated in follow up. Patient has no new complaints at this time. Patient denies any cardiac symptoms. Patient is cardiac stable for discharge. Telemetry reviewed. vital signs Vital Sign Date Time Temp Pulse Resp B/P (MAP) Pulse Ox O2 Delivery O2 Flow Rate FiO2 11/20/24 08:40 98.0 76 20 156/93 (114) 99 98.0 11/20/24 08:00 Room Air* 0 21 Total Intake and Output 11/19/24 11/19/24 11/20/24 15:00 23:00 07:00 Intake Total 400 ml 500 ml Balance 400 ml 500 ml objective GENERAL: Alert and oriented x 3. No acute distress. EYES: PERRL, EOMI. Anicteric. HENT: Moist mucous membranes. LUNGS: Clear to auscultation bilaterally. CARDIOVASCULAR: Regular rate and rhythm. ABDOMEN: Soft, nontender and nondistended. EXTREMITIES: No edema. NEUROLOGIC: No focal neurological deficits. SKIN: Warm, dry. laboratory and microbiology Laboratory Tests 11/19/24 06:42 Test 11/19/24 06:42 Range/Units Serum Glucose 116 H 74-106 mg/dL Problem List NSTEMI, rule out progressive coronary artery disease. Coronary artery disease status post PTCA x 2 ELZBIETA (on Brilinta and aspirin). Hypertension. Dyslipidemia. Covid. Type 2 diabetes mellitus. Tobacco use. Obesity. Assessment/Plan Continued all current supportive medical care. Amlodipine, Clonidine. Aspirin, Lipitor, Brilinta. Heparin drip per pharmacy. Nitro SL. Additional plan as per the hospital course. Dietary Evaluation Review Comments: 1. Continue Cardiac diet as tolerated 2. Encourage good oral intakes >75% of meals 3. Monitor BG, insuling for correction; goal <180 mg/dl while inpatient Expected Outcomes/Goals: Maintain adequate nutrition. Plan discussed with: Patient LILO CONLEY MD Nov 20, 2024 23:21
== END 2024-11-20 08:25 | disposition home or self-care (01) | DRG 175 ==
LOC: ER 22:00 → OVERFLOW 23:41 → TELE-EAST 11-17 17:27
PROVIDERS: ADMIT Student in an Organized Health Care Education/Training Program; ATTEND Emergency Medicine
PROC: 027034Z Dilation of Coronary Artery, One Artery with Drug-eluting Intraluminal Device, Percutaneous Approach (ICD-10-PCS; principal; 2024-11-19)
PROC: B34HZZZ Ultrasonography of Right Upper Extremity Arteries (ICD-10-PCS; 2024-11-19)
PROC: B211YZZ Fluoroscopy of Multiple Coronary Arteries using Other Contrast (ICD-10-PCS; 2024-11-19)
PROC: 4A023N7 Measurement of Cardiac Sampling and Pressure, Left Heart, Percutaneous Approach (ICD-10-PCS; 2024-11-19)
PROC: 03HY32Z Insertion of Monitoring Device into Upper Artery, Percutaneous Approach (ICD-10-PCS; 2024-11-19)
PROC: 3E033PZ Introduction of Platelet Inhibitor into Peripheral Vein, Percutaneous Approach (ICD-10-PCS; 2024-11-19)
PROC: 02C03ZZ Extirpation of Matter from Coronary Artery, One Artery, Percutaneous Approach (ICD-10-PCS; 2024-11-19)
DX: I25.10 Atherosclerotic heart disease of native coronary artery without angina pectoris (principal); I21.4 Non-ST elevation (NSTEMI) myocardial infarction; U07.1 COVID-19; E11.9 Type 2 diabetes mellitus without complications; E86.0 Dehydration; E78.5 Hyperlipidemia, unspecified; I10 Essential (primary) hypertension; F17.210 Nicotine dependence, cigarettes, uncomplicated; E87.6 Hypokalemia; E66.01 Morbid (severe) obesity due to excess calories; K52.1 Toxic gastroenteritis and colitis; T38.3X5A Adverse effect of insulin and oral hypoglycemic [antidiabetic] drugs, initial encounter; F12.90 Cannabis use, unspecified, uncomplicated; Z79.82 Long term (current) use of aspirin; Z79.899 Other long term (current) drug therapy; Z79.84 Long term (current) use of oral hypoglycemic drugs; Z83.3 Family history of diabetes mellitus; Z95.5 Presence of coronary angioplasty implant and graft; Z68.36 Body mass index [BMI] 36.0-36.9, adult; Y92.89 Other specified places as the place of occurrence of the external cause
CPT/HCPCS: 36415; 71045; 80048; 80053; 80061; 80307; 81001; 82306; 82607; 82746; 82962; 83036; 83690; 83735; 83880; 84443; 84484; 85025; 85610; 85730; 87081; 87426; 87804; 92941; 92973; 93005; 93306; 93458; 96365; 96375; 99152; 99291; G0378; J1815; J2250; Q9967